=== PATIENT | female | born 1950 | race Caucasian/White ===

== ENCOUNTER 2020-04-27 07:18 | Outpatient (REF) | payer MEDICARE, OTHER, SELFPAY ==
[2020-04-27 12:01] LABS: Alanine Aminotransferase 32 U/L (0-31); Albumin Level 4.4 g/dL (3.5-5.0); Alkaline Phosphatase 131 U/L (39-117); Anion Gap 11 (12-20); Aspartate Amino Transferase 26 U/L (5-31); Bilirubin Total 0.4 mg/dL (0.0-1.0); Blood Urea Nitrogen 15 mg/dL (9-16); Calcium 9.4 mg/dL (8.4-10.2); Carbon Dioxide 28 mmol/L (22-29); Chloride 101 mmol/L (96-108); Cholesterol 175 mg/dL; Estimated Glomerular Filt Rate > 60; Glucose Fasting 89 mg/dL (60-99); HDL Cholesterol 57 mg/dL; LDL Cholesterol Calculated 96 mg/dl; Potassium 4.6 mmol/l (3.3-5.1); Sodium 135 mmol/L (135-145); Total Protein 7.5 g/dL (6.5-8.0); Triglycerides 110 mg/dL
== END 2020-04-27 07:19 | disposition home or self-care (01) ==
LOC: HO.HMGCLDS 07:18
PROVIDERS: PCP Internal Medicine; Visit Provider Internal Medicine
DX: E78.5 Hyperlipidemia, unspecified (principal); I10 Essential (primary) hypertension; F41.9 Anxiety disorder, unspecified
CPT/HCPCS: 36415; 80053; 80061

== ENCOUNTER 2020-09-06 07:13 | Outpatient (REF) | payer MEDICARE, OTHER, SELFPAY ==
[2020-09-06 11:37] LABS: Hematocrit 43.4 % (37-47); Hemoglobin 13.6 g/dl (12.0-16.0); Mean Corpuscular HGB Conc 31.3 g/dl (31.0-35.0); Mean Corpuscular Hemoglobin 29.4 pg (27.0-33.0); Mean Corpuscular Volume 93.7 fL (80-98); Mean Platelet Volume 12.3 fL (9.4-12.3); Platelet Count 226 X10*3/uL (160-400); Red Blood Count 4.63 X10*6/uL (4.20-5.50); Red Cell Distribution Width 12.5 % (11.0-16.0); White Blood Count 6.6 X10*3/uL (4.8-10.8)
[2020-09-06 12:02] LABS: Alanine Aminotransferase 49 U/L (0-31); Albumin Level 4.5 g/dL (3.5-5.0); Alkaline Phosphatase 148 U/L (39-117); Anion Gap 15 (12-20); Aspartate Amino Transferase 37 U/L (5-31); Bilirubin Total 0.5 mg/dL (0.0-1.0); Blood Urea Nitrogen 14 mg/dL (9-16); Calcium 9.4 mg/dL (8.4-10.2); Carbon Dioxide 26 mmol/L (22-29); Chloride 99 mmol/L (96-108); Cholesterol 203 mg/dL; Estimated Glomerular Filt Rate > 60; Glucose Fasting 91 mg/dL (60-99); HDL Cholesterol 64 mg/dL; LDL Cholesterol Calculated 123 mg/dl; Potassium 4.7 mmol/L (3.3-5.1); Sodium 135 mmol/L (135-145); Total Protein 7.9 g/dL (6.5-8.0); Triglycerides 82 mg/dL
[2020-09-06 12:24] LABS: TSH reflex Free T4 4.96 uIU/mL (0.32-4.0)
[2020-09-06 13:05] LABS: Free T4 (Free Thyroxine) 0.97 ng/dL (0.71-1.85)
== END 2020-09-06 07:14 | disposition home or self-care (01) ==
LOC: HO.HMGCLDS 07:13
PROVIDERS: PCP Internal Medicine; Visit Provider Internal Medicine
DX: L71.9 Rosacea, unspecified (principal); L30.9 Dermatitis, unspecified; N64.4 Mastodynia; E78.5 Hyperlipidemia, unspecified; R79.89 Other specified abnormal findings of blood chemistry; D23.9 Other benign neoplasm of skin, unspecified
CPT/HCPCS: 36415; 80053; 80061; 84439; 84443; 85027

== ENCOUNTER 2020-09-14 09:58 | Outpatient (REF) | payer MEDICARE, OTHER, SELFPAY ==
--- NOTE | ~2020-09-14 | US_ITS ---
EXAMINATION: US ABDOMEN LIMITED CLINICAL INFORMATION: Other specified abnormal findings of blood chemistry. COMPARISON: None TECHNIQUE: Real-time imaging of the right upper quadrant abdominal viscera. FINDINGS: PANCREAS: Normal. LIVER: The liver is normal in size. The liver contour is normal. Parenchymal echogenicity is normal. There is a 1.4 x 1.2 x 1.3 cm cyst in the right lobe. No other focal liver lesion is seen. There is no intrahepatic biliary duct dilatation seen. GALLBLADDER: Normal. The gallbladder is physiologically distended without evidence of stones, sludge, polyps, wall thickening or pericholecystic fluid. COMMON BILE DUCT: Normal in caliber measuring 0.4 cm in diameter. RIGHT KIDNEY: Normal. No hydronephrosis. No renal calculi or focal parenchymal lesions. The kidney measures 10.8 cm in maximum dimension. FREE FLUID: None. US/US abdomen limited IMPRESSION: Small liver cyst otherwise unremarkable exam.
== END 2020-09-14 09:59 | disposition home or self-care (01) ==
LOC: HO.HMGCX 09:58
PROVIDERS: PCP Internal Medicine; Visit Provider Internal Medicine
DX: R79.89 Other specified abnormal findings of blood chemistry (principal)
CPT/HCPCS: 76705

== ENCOUNTER 2021-04-19 10:09 | Outpatient (REF) | payer MEDICARE, OTHER, SELFPAY ==
[2021-04-19 12:03] LABS: Alanine Aminotransferase 33 U/L (0-31); Albumin Level 4.3 g/dL (3.5-5.0); Alkaline Phosphatase 122 U/L (39-117); Anion Gap 13 (12-20); Aspartate Amino Transferase 30 U/L (5-31); Bilirubin Total 0.6 mg/dL (0.0-1.0); Blood Urea Nitrogen 15 mg/dL (9-16); Calcium 9.8 mg/dL (8.4-10.2); Carbon Dioxide 26 mmol/L (22-29); Chloride 99 mmol/L (96-108); Cholesterol 190 mg/dL; Estimated Glomerular Filt Rate > 60; Glucose Fasting 95 mg/dL (60-99); HDL Cholesterol 58 mg/dL; LDL Cholesterol Calculated 112 mg/dl; Sodium 133 mmol/L (135-145); Total Protein 7.8 g/dL (6.5-8.0); Triglycerides 100 mg/dL
[2021-04-19 12:13] LABS: TSH reflex Free T4 2.01 uIU/mL (0.32-4.0)
== END 2021-04-19 10:10 | disposition home or self-care (01) ==
LOC: HO.HMGCLDS 10:09
PROVIDERS: PCP Internal Medicine; Visit Provider Internal Medicine
DX: E03.9 Hypothyroidism, unspecified (principal); E78.5 Hyperlipidemia, unspecified; I10 Essential (primary) hypertension; R79.89 Other specified abnormal findings of blood chemistry
CPT/HCPCS: 36415; 80053; 80061; 84443

== ENCOUNTER 2021-09-13 10:21 | Outpatient (REF) | payer MEDICARE, OTHER, SELFPAY ==
[2021-09-13 11:51] LABS: Hematocrit 41.6 % (37.0-47.0); Hemoglobin 13.4 g/dl (12.0-16.0); Mean Corpuscular HGB Conc 32.2 g/dl (31.0-35.0); Mean Corpuscular Hemoglobin 29.7 pg (27.0-33.0); Mean Corpuscular Volume 92.2 fL (80.0-98.0); Mean Platelet Volume 11.4 fL (9.4-12.3); Platelet Count 229 X10*3/uL (160-400); Red Blood Count 4.51 X10*6/uL (4.20-5.50); Red Cell Distribution Width 12.6 % (11.0-16.0); White Blood Count 6.7 X10*3/uL (4.8-10.8)
[2021-09-13 12:11] LABS: Alanine Aminotransferase 34 U/L (0-31); Albumin Level 4.5 g/dL (3.5-5.0); Alkaline Phosphatase 129 U/L (39-117); Anion Gap 11 (12-20); Aspartate Amino Transferase 31 U/L (5-31); Bilirubin Total 0.5 mg/dL (0.0-1.0); Blood Urea Nitrogen 16 mg/dL (9-16); Calcium 9.9 mg/dL (8.4-10.2); Carbon Dioxide 28 mmol/L (22-29); Chloride 101 mmol/L (96-108); Cholesterol 216 mg/dL; Estimated Glomerular Filt Rate > 60; Glucose Fasting 104 mg/dL (60-99); HDL Cholesterol 57 mg/dL; LDL Cholesterol Calculated 141 mg/dl; Potassium 4.9 mmol/L (3.3-5.1); Sodium 135 mmol/L (135-145); Total Protein 7.9 g/dL (6.5-8.0); Triglycerides 93 mg/dL
[2021-09-13 12:34] LABS: TSH reflex Free T4 2.92 uIU/mL (0.32-4.0)
== END 2021-09-13 10:22 | disposition home or self-care (01) ==
LOC: HO.HMGCLDS 10:21
PROVIDERS: Visit Provider Internal Medicine
DX: E03.9 Hypothyroidism, unspecified (principal); E78.5 Hyperlipidemia, unspecified; I10 Essential (primary) hypertension
CPT/HCPCS: 36415; 80053; 80061; 84443; 85027

== ENCOUNTER 2021-10-15 08:43 | Outpatient (REF) | payer MEDICARE, OTHER, SELFPAY ==
[2021-10-15 11:55] LABS: Anion Gap 14 (12-20); Blood Urea Nitrogen 17 mg/dL (9-16); Calcium 10.1 mg/dL (8.4-10.2); Carbon Dioxide 25 mmol/L (22-29); Chloride 102 mmol/L (96-108); Estimated Glomerular Filt Rate > 60; Glucose Random 97 mg/dL (60-115); Potassium 4.7 mmol/L (3.3-5.1); Sodium 136 mmol/L (135-145)
== END 2021-10-15 08:44 | disposition home or self-care (01) ==
LOC: HO.HMGCLDS 08:43
PROVIDERS: PCP Internal Medicine; Visit Provider Internal Medicine
DX: E87.1 Hypo-osmolality and hyponatremia (principal)
CPT/HCPCS: 36415; 80048

== ENCOUNTER 2022-01-15 07:28 | Outpatient (REF) | payer MEDICARE, OTHER, SELFPAY ==
[2022-01-15 11:23] LABS: MANUAL DIFF FLAG NO
[2022-01-15 11:33] LABS: Basophils Absolute Auto 0.1 X10*3/uL (0.0-0.2); Basophils Percent Auto 0.9 % (0-2); Eosinophils Absolute Auto 0.2 X10*3/uL (0.0-0.4); Eosinophils Percent Auto 3.7 % (0-4); Hematocrit 39.6 % (37.0-47.0); Hemoglobin 12.6 g/dl (12.0-16.0); Imm Gran Abs Auto 0.04 X10*3/uL (0.00-0.03); Imm Gran Pct Auto 0.6 % (0.0-0.4); Lymphocytes Absolute Auto 1.5 X10*3/uL (1.2-4.9); Lymphocytes Percent Auto 23.2 % (20-40); Mean Corpuscular HGB Conc 31.8 g/dl (31.0-35.0); Mean Corpuscular Hemoglobin 29.9 pg (27.0-33.0); Mean Corpuscular Volume 93.8 fL (80.0-98.0); Mean Platelet Volume 11.9 fL (9.4-12.3); Monocytes Absolute Auto 0.7 X10*3/uL (0.1-1.2); Monocytes Percent Auto 10.9 % (2-11); Neutrophils Absolute Auto 3.9 x10*3/uL (2.0-8.3); Neutrophils Percent Auto 60.7 % (45-73); Platelet Count 246 X10*3/uL (160-400); Red Blood Count 4.22 X10*6/uL (4.20-5.50); White Blood Count 6.4 X10*3/uL (4.8-10.8)
[2022-01-15 11:47] LABS: Alanine Aminotransferase 91 U/L (0-31); Albumin Level 4.4 g/dL (3.5-5.0); Alkaline Phosphatase 209 U/L (39-117); Anion Gap 12 (12-20); Aspartate Amino Transferase 59 U/L (5-31); Bilirubin Total 0.6 mg/dL (0.0-1.0); Blood Urea Nitrogen 19 mg/dL (9-16); Calcium 9.8 mg/dL (8.4-10.2); Carbon Dioxide 28 mmol/L (22-29); Chloride 102 mmol/L (96-108); Cholesterol 213 mg/dL; Estimated Glomerular Filt Rate > 60; Glucose Fasting 103 mg/dL (60-99); HDL Cholesterol 61 mg/dL; LDL Cholesterol Calculated 140 mg/dl; Potassium 5.3 mmol/L (3.3-5.1); Sodium 137 mmol/L (135-145); Total Protein 7.8 g/dL (6.5-8.0); Triglycerides 64 mg/dL
[2022-01-15 12:10] LABS: TSH reflex Free T4 3.27 uIU/mL (0.32-4.0)
== END 2022-01-15 07:29 | disposition home or self-care (01) ==
LOC: HO.HMGCLDS 07:28
PROVIDERS: Visit Provider Internal Medicine
DX: E78.5 Hyperlipidemia, unspecified (principal); I10 Essential (primary) hypertension; E03.9 Hypothyroidism, unspecified
CPT/HCPCS: 36415; 80053; 80061; 84443; 85025

== ENCOUNTER 2022-01-30 07:25 | Outpatient (REF) | payer MEDICARE, OTHER, SELFPAY ==
[2022-01-30 11:59] LABS: Alanine Aminotransferase 50 U/L (0-31); Albumin Level 4.4 g/dL (3.5-5.0); Alkaline Phosphatase 183 U/L (39-117); Anion Gap 12 (12-20); Aspartate Amino Transferase 41 U/L (5-31); Bilirubin Total 0.6 mg/dL (0.0-1.0); Blood Urea Nitrogen 14 mg/dL (9-16); Calcium 9.6 mg/dL (8.4-10.2); Carbon Dioxide 27 mmol/L (22-29); Chloride 104 mmol/L (96-108); Estimated Glomerular Filt Rate > 60; Glucose Random 89 mg/dL (60-115); Potassium 4.6 mmol/L (3.3-5.1); Sodium 138 mmol/L (135-145); Total Protein 7.7 g/dL (6.5-8.0)
== END 2022-01-30 07:26 | disposition home or self-care (01) ==
LOC: HO.HMGCLDS 07:25
PROVIDERS: Visit Provider Internal Medicine
DX: E87.6 Hypokalemia (principal)
CPT/HCPCS: 36415; 80053

== ENCOUNTER 2022-02-27 09:50 | Outpatient (REF) | payer MEDICARE, OTHER, SELFPAY | END 2022-02-27 09:51 | disposition home or self-care (01) | LOC: HO.HMGCX 09:50 | PROVIDERS: PCP Internal Medicine; Visit Provider Internal Medicine | DX: Z13.89 Encounter for screening for other disorder (principal) ==

== ENCOUNTER 2022-02-27 09:51 | Outpatient (REF) | payer MEDICARE, OTHER, SELFPAY ==
--- NOTE | ~2022-02-27 | US_ITS ---
EXAMINATION: US ABDOMEN COMPLETE CLINICAL INFORMATION: Other specific abnormal findings of blood chemistry. COMPARISON: Limited abdominal ultrasound 09/14/2020. TECHNIQUE: Real-time imaging of the abdominal viscera. FINDINGS: PANCREAS: Normal. ABDOMINAL AORTA: The proximal, mid, and distal segments are normal in caliber. INFERIOR VENA CAVA: Visualized portions are normal. LIVER: The liver is normal in size. The liver contour is normal. Parenchymal echogenicity is normal. Cystic focus in the right hepatic lobe measuring 1.3 x 1.3 x 1.4 cm, stable. There is no intrahepatic biliary duct dilatation seen. GALLBLADDER: Normal. The gallbladder is physiologically distended without evidence of stones, sludge, polyps, wall thickening or pericholecystic fluid. COMMON BILE DUCT: Normal in caliber measuring 0.5 cm in diameter. RIGHT KIDNEY: Normal. No hydronephrosis. No renal calculi or focal parenchymal lesions. The kidney measures 11.3 cm in maximum dimension. LEFT KIDNEY: Normal. No hydronephrosis. No renal calculi or focal parenchymal lesions. The kidney measures 10.5 cm in maximum dimension. SPLEEN: Normal. The spleen measures 10.1 cm in maximum dimension. FREE FLUID: None. US/US abdomen complete IMPRESSION: Cystic focus in the right hepatic lobe measuring 1.3 x 1.3 x 1.4 cm, stable.
--- NOTE | ~2022-02-27 | US_ITS ---
EXAMINATION: US EXTRACRANIAL CAROTID DUPLEX, BILATERAL CLINICAL INFORMATION: This is a 71-year-old female with bilateral carotid artery stenosis. Occlusion and stenosis of bilateral carotid arteries. COMPARISON: None TECHNIQUE: Real-time ultrasound and Doppler techniques (integrating B-mode 2-D vascular images, Doppler spectral analysis and color-flow Doppler imaging) were utilized to interrogate the extracranial carotid arteries, the vertebral arteries and proximal subclavian arteries bilaterally. The degree of stenosis is determined by criteria similar to NASCET. FINDINGS: Right Side: 1. There is minimal atherosclerotic plaque seen in the bifurcation/proximal ICA region. 2. The common carotid artery PSV proximally is 101 cm/s and distally 69 cm/s. 3. The proximal internal carotid artery velocities are 130 cm/s systolic and 28 cm/s diastolic. 4. The proximal external carotid artery PSV is 175 cm/s. 5. The vertebral artery shows antegrade flow. 6. The subclavian artery waveforms are normal. Left Side: 1. There is minimal atherosclerotic plaque seen in the bifurcation/proximal ICA region. 2. The common carotid artery PSV proximally is 94 cm/s and distally 73 cm/s. 3. The proximal internal carotid artery velocities are 90 cm/s systolic and 31 cm/s diastolic. 4. The proximal external carotid artery PSV is 172 cm/s. 5. The vertebral artery is not seen. 6. The subclavian artery waveforms are normal. US/US carotid duplex BI IMPRESSION: 1. RIGHT: Minimal, non-hemodynamically significant stenosis of the proximal right internal carotid artery corresponding to a 0-49% stenosis by velocity criteria. 2. LEFT: Minimal, non-hemodynamically significant stenosis of the proximal left internal carotid artery corresponding to a 0-49% stenosis by velocity criteria.
== END 2022-02-27 09:52 | disposition home or self-care (01) ==
LOC: HO.HMGCX 09:51
PROVIDERS: PCP Internal Medicine; Visit Provider Internal Medicine
DX: I65.23 Occlusion and stenosis of bilateral carotid arteries (principal); I10 Essential (primary) hypertension; R79.89 Other specified abnormal findings of blood chemistry
CPT/HCPCS: 76700; 93880

== ENCOUNTER 2022-04-09 06:57 | Outpatient (REF) | payer MEDICARE, OTHER, SELFPAY ==
[2022-04-09 11:18] LABS: MANUAL DIFF FLAG NO
[2022-04-09 11:32] LABS: Basophils Absolute Auto 0.1 X10*3/uL (0.0-0.2); Eosinophils Absolute Auto 0.2 X10*3/uL (0.0-0.4); Eosinophils Percent Auto 3.8 % (0-4); Hemoglobin 12.9 g/dl (12.0-16.0); Imm Gran Abs Auto 0.01 X10*3/uL (0.00-0.03); Imm Gran Pct Auto 0.2 % (0.0-0.4); Lymphocytes Absolute Auto 1.6 X10*3/uL (1.2-4.9); Lymphocytes Percent Auto 25.6 % (20-40); Mean Corpuscular HGB Conc 32.3 g/dl (31.0-35.0); Mean Corpuscular Hemoglobin 30.1 pg (27.0-33.0); Mean Corpuscular Volume 93.5 fL (80.0-98.0); Mean Platelet Volume 12.1 fL (9.4-12.3); Monocytes Absolute Auto 0.6 X10*3/uL (0.1-1.2); Monocytes Percent Auto 9.7 % (2-11); Neutrophils Absolute Auto 3.7 x10*3/uL (2.0-8.3); Neutrophils Percent Auto 59.7 % (45-73); Platelet Count 212 X10*3/uL (160-400); Red Blood Count 4.28 X10*6/uL (4.20-5.50); Red Cell Distribution Width 12.9 % (11.0-16.0); White Blood Count 6.3 X10*3/uL (4.8-10.8)
[2022-04-09 12:05] LABS: Alanine Aminotransferase 52 U/L (0-31); Albumin Level 4.2 g/dL (3.5-5.0); Alkaline Phosphatase 155 U/L (39-117); Anion Gap 14 (12-20); Aspartate Amino Transferase 43 U/L (5-31); Bilirubin Total 0.6 mg/dL (0.0-1.0); Blood Urea Nitrogen 18 mg/dL (9-16); Calcium 9.6 mg/dL (8.4-10.2); Carbon Dioxide 26 mmol/L (22-29); Chloride 100 mmol/L (96-108); Cholesterol 221 mg/dL; Estimated Glomerular Filt Rate > 60; Glucose Fasting 88 mg/dL (60-99); HDL Cholesterol 58 mg/dL; LDL Cholesterol Calculated 147 mg/dl; Potassium 4.8 mmol/L (3.3-5.1); Sodium 135 mmol/L (135-145); Total Protein 7.4 g/dL (6.5-8.0); Triglycerides 83 mg/dL
== END 2022-04-09 06:58 | disposition home or self-care (01) ==
LOC: HO.HMGCLDS 06:57
PROVIDERS: PCP Internal Medicine; Visit Provider Internal Medicine
DX: E78.5 Hyperlipidemia, unspecified (principal); I10 Essential (primary) hypertension
CPT/HCPCS: 36415; 80053; 80061; 85025

== ENCOUNTER 2022-09-16 08:53 | Outpatient (REF) | payer MEDICARE, OTHER, SELFPAY ==
[2022-09-16 11:18] LABS: MANUAL DIFF FLAG NO
[2022-09-16 11:24] LABS: Basophils Absolute Auto 0.1 X10*3/uL (0.0-0.2); Basophils Percent Auto 0.8 % (0-2); Eosinophils Absolute Auto 0.2 X10*3/uL (0.0-0.4); Eosinophils Percent Auto 3.7 % (0-4); Hematocrit 41.9 % (37.0-47.0); Hemoglobin 13.3 g/dl (12.0-16.0); Imm Gran Abs Auto 0.01 X10*3/uL (0.00-0.03); Imm Gran Pct Auto 0.2 % (0.0-0.4); Lymphocytes Absolute Auto 1.5 X10*3/uL (1.2-4.9); Lymphocytes Percent Auto 23.7 % (20-40); Mean Corpuscular HGB Conc 31.7 g/dl (31.0-35.0); Mean Corpuscular Hemoglobin 29.6 pg (27.0-33.0); Mean Corpuscular Volume 93.1 fL (80.0-98.0); Mean Platelet Volume 11.8 fL (9.4-12.3); Monocytes Absolute Auto 0.6 X10*3/uL (0.1-1.2); Monocytes Percent Auto 9.6 % (2-11); Platelet Count 227 X10*3/uL (160-400); Red Cell Distribution Width 12.6 % (11.0-16.0); White Blood Count 6.5 X10*3/uL (4.8-10.8)
[2022-09-16 11:41] LABS: Alanine Aminotransferase 68 U/L (0-31); Albumin Level 4.2 g/dL (3.5-5.0); Alkaline Phosphatase 156 U/L (39-117); Anion Gap 13 (12-20); Aspartate Amino Transferase 39 U/L (5-31); Bilirubin Total 0.6 mg/dL (0.0-1.0); Blood Urea Nitrogen 17 mg/dL (9-16); Calcium 9.8 mg/dL (8.4-10.2); Carbon Dioxide 26 mmol/L (22-29); Chloride 101 mmol/L (96-108); Cholesterol 240 mg/dL; Estimated Glomerular Filt Rate > 60; Glucose Fasting 92 mg/dL (60-99); HDL Cholesterol 61 mg/dL; LDL Cholesterol Calculated 158 mg/dl; Potassium 4.9 mmol/L (3.3-5.1); Sodium 135 mmol/L (135-145); Total Protein 7.4 g/dL (6.5-8.0); Triglycerides 108 mg/dL
[2022-09-16 12:04] LABS: TSH reflex Free T4 6.69 uIU/mL (0.32-4.0)
[2022-09-16 13:18] LABS: Free T4 (Free Thyroxine) 0.85 ng/dL (0.71-1.85)
== END 2022-09-16 08:54 | disposition home or self-care (01) ==
LOC: HO.HMGCLDS 08:53
PROVIDERS: PCP Internal Medicine; Visit Provider Internal Medicine
DX: E03.9 Hypothyroidism, unspecified (principal); E87.1 Hypo-osmolality and hyponatremia; I10 Essential (primary) hypertension; E78.5 Hyperlipidemia, unspecified
CPT/HCPCS: 36415; 80053; 80061; 84439; 84443; 85025

== ENCOUNTER 2022-09-24 08:42 | Outpatient (REF) | payer MEDICARE, OTHER, SELFPAY ==
--- NOTE | ~2022-09-24 | XR_ITS ---
EXAMINATION: XR SHOULDER, RIGHT CLINICAL INFORMATION: Shoulder pain COMPARISON: None TECHNIQUE: Right shoulder is imaged in 4 views. FINDINGS: There is calcific tendinosis mid to distal superior rotator cuff. Calcification on frontal view measures approximately 4 mm in thickness by 8 mm in length. There is no fracture or dislocation or destructive process. The glenohumeral joint appears normal. There is borderline elevation distal right clavicle which could be related to a prior mild AC sprain. No before meals joint widening. XR/XR shoulder RT min 2V IMPRESSION: 1. Calcific tendinosis mid to distal superior rotator cuff. 2. Borderline elevation distal right clavicle which could be related to prior mild A.C. sprain.
--- NOTE | ~2022-09-24 | XR_ITS ---
EXAMINATION: XR WRIST, RIGHT CLINICAL INFORMATION: Right wrist pain COMPARISON: None TECHNIQUE: PA, lateral, and oblique views of the right wrist. FINDINGS: No fracture, dislocation, or destructive process. The ulnar variance is neutral. No joint narrowing or erosive change or chondrocalcinosis. There is mild generalized osteopenia. No periarticular demineralization. XR/XR wrist RT min 3V IMPRESSION: 1. No fracture, dislocation, or arthropathy. 2. Mild generalized osteopenia.
[2022-09-24 12:31] LABS: Uric Acid 5.7 mg/dL (2.4-5.7)
== END 2022-09-24 08:43 | disposition home or self-care (01) ==
LOC: HO.HMGCLDS 08:42
PROVIDERS: PCP Internal Medicine; Visit Provider Internal Medicine
DX: E03.9 Hypothyroidism, unspecified (principal); E87.1 Hypo-osmolality and hyponatremia; I10 Essential (primary) hypertension; M25.511 Pain in right shoulder; E78.5 Hyperlipidemia, unspecified; M25.531 Pain in right wrist
CPT/HCPCS: 36415; 73030; 73110; 84550

== ENCOUNTER 2023-03-11 07:51 | Outpatient (REF) | payer MEDICARE, OTHER, SELFPAY ==
[2023-03-11 11:19] LABS: MANUAL DIFF FLAG NO
[2023-03-11 11:33] LABS: Basophils Absolute Auto 0.1 X10*3/uL (0.0-0.2); Basophils Percent Auto 1.2 % (0-2); Eosinophils Absolute Auto 0.2 X10*3/uL (0.0-0.4); Eosinophils Percent Auto 3.6 % (0-4); Hematocrit 41.5 % (37.0-47.0); Hemoglobin 13.3 g/dl (12.0-16.0); Imm Gran Abs Auto 0.01 X10*3/uL (0.00-0.03); Imm Gran Pct Auto 0.2 % (0.0-0.4); Lymphocytes Absolute Auto 1.6 X10*3/uL (1.2-4.9); Lymphocytes Percent Auto 28.1 % (20-40); Mean Corpuscular Hemoglobin 29.7 pg (27.0-33.0); Mean Corpuscular Volume 92.6 fL (80.0-98.0); Monocytes Absolute Auto 0.6 X10*3/uL (0.1-1.2); Monocytes Percent Auto 10.8 % (2-11); Neutrophils Absolute Auto 3.3 x10*3/uL (2.0-8.3); Neutrophils Percent Auto 56.1 % (45-73); Platelet Count 261 X10*3/uL (160-400); Red Blood Count 4.48 X10*6/uL (4.20-5.50); Red Cell Distribution Width 12.7 % (11.0-16.0); White Blood Count 5.8 X10*3/uL (4.8-10.8)
[2023-03-11 12:10] LABS: Alanine Aminotransferase 28 U/L (0-31); Albumin Level 4.3 g/dL (3.5-5.0); Alkaline Phosphatase 131 U/L (39-117); Anion Gap 11 (12-20); Aspartate Amino Transferase 32 U/L (5-31); Bilirubin Total 0.6 mg/dL (0.0-1.0); Blood Urea Nitrogen 16 mg/dL (9-16); Calcium 9.8 mg/dL (8.4-10.2); Carbon Dioxide 27 mmol/L (22-29); Chloride 98 mmol/L (96-108); Cholesterol 226 mg/dL; Estimated Glomerular Filt Rate > 60; Glucose Fasting 98 mg/dL (60-99); HDL Cholesterol 63 mg/dL; LDL Cholesterol Calculated 147 mg/dl; Potassium 4.9 mmol/L (3.3-5.1); Sodium 131 mmol/L (135-145); Total Protein 8.1 g/dL (6.5-8.0); Triglycerides 84 mg/dL
[2023-03-11 12:30] LABS: TSH reflex Free T4 5.23 uIU/mL (0.32-4.0); Vitamin D 25-OH Total 38.7 ng/mL (>30)
[2023-03-12 06:54] LABS: Triiodothyronine T3 Free 2.9 pg/mL (2.3-4.2)
[2023-03-12 11:23] LABS: Alpha Fetoprotein 4.9 ng/mL
== END 2023-03-11 07:52 | disposition home or self-care (01) ==
LOC: HO.HMGCLDS 07:51
PROVIDERS: PCP Internal Medicine; Visit Provider Internal Medicine
DX: Z00.00 Encounter for general adult medical examination without abnormal findings (principal); E03.9 Hypothyroidism, unspecified; R79.89 Other specified abnormal findings of blood chemistry; E78.5 Hyperlipidemia, unspecified; I10 Essential (primary) hypertension; E55.9 Vitamin D deficiency, unspecified
CPT/HCPCS: 36415; 80053; 80061; 82105; 82306; 84439; 84443; 84481; 85025

== ENCOUNTER 2023-03-13 09:51 | Outpatient (AMB) | payer MEDICARE, SELFPAY ==
[2023-03-13 10:04] VITALS: BP 128/70; PULSE 84; BMI 24.1
--- NOTE | 2023-03-13 10:04 | A.OFFPC_ITS ---
Vital Signs 03/13/23 10:04 Height 5 ft 2 in Weight 132 lb BMI 24.1 BP 128/70 Blood Pressure Location Lt brachial Position Sitting Pulse 84 Pulse Source Palpation Intake Visit Reasons: Follow up Intake Note: Pt is here today for a follow up visit on labs. Allergies rosuvastatin [From Crestor] Adverse Reaction (Intermediate, Verified 03/13/23 10:08) Abdominal Pain amlodipine Adverse Reaction (Verified 03/13/23 10:08) face turned red, dizziness headaches Medication List - Last Reconciled 03/13/23 by Jade Reece MD buspirone 7.5 mg PO BID clobetasol 0.05% 1 appl topical DAILY lisinopril 20 mg PO DAILY lorazepam 0.5 mg PO DAILY PRN metronidazole 0.75% (MetroCream) 1 appl topical BEDTIME omega-3 fatty acids 500 mg PO DAILY omeprazole 40 mg PO DAILY Tobacco use date assessed: 03/13/23 Fall risk assessment: No Falls in past year Last assessed Fall Risk: 03/13/23 Dental Screening Dental Screen Date: 03/13/23 Did you have a dental visit in the last 12 months?: Yes Did you have a dental problem in the last 6 months where you did not have access to dental care?: No Was dental information given to patient?: Patient has dentist HPI Follow up HPI Details Pt presents for HTN, hyperlipid. [facility] Medical History Annual physical exam Anxiety Breast pain, left CREST syndrome Dysplastic nevi Eczema Elevated LFTs Hyperlipidemia Hypertension Hyponatremia Hypothyroidism Lumbar radiculopathy Osteoporosis Rosacea Surgical History H/O colonoscopy History of nasal septoplasty Family History (Updated 03/13/23 @ 10:12 by ABISAI Coffey) Father No problems noted. Mother No problems noted. Daughter No problems noted. Daughter No problems noted. Daughter No problems noted. Social History Housing: House Patient Tobacco Use Status: Never used Tobacco e-Cigarette/Vaping Use: Never Used Current occupational status: retired Cognitive needs: No Hearing needs: No Vision needs: Yes Questionnaire PHQ-9 Over the last 2 weeks, how often have you been bothered by any of the following problems? 1. Little interest or pleasure in doing things: not at all 2. Feeling down, depressed, or hopeless: not at all 3. Trouble falling or staying asleep, or sleeping too much: not at all 4. Feeling tired or having little energy: not at all 5. Poor appetite or overeating: not at all 6. Feeling bad about yourself - or that you are a failure or have let yourself or your family down: not at all 7. Trouble concentrating on things, such as reading the newspaper or watching television: not at all 8. Moving or speaking so slowly that other people could have noticed. Or the opposite - being so fidgety or restless that you have been moving around a lot more than usual: not at all 9. Thoughts that you would be better off or of hurting yourself in some way: not at all Total score: 0 Depression Screening Interpretation: Negative Source: Developed by Drs. Waldemar Buchanan, Robyn Burr, Jalil Sam and colleagues, with an educational mp from [employer]. Thrive Questionnaire Date Thrive assessed: 03/13/23 I am a: Patient What is your living situation today?: I have a steady place to live Within the past 12 months, did the food you bought not last and you didn't have the money to get more?: Never true Within the past 12 months, did you worry whether your food would run out before you got money to buy more?: Never true Do you have trouble paying for medicines?: No Do you have trouble getting transportation to medical appointments?: No Do you have trouble paying your heating and electricity bill?: No Do you have trouble taking care of your child, family member or friend?: No Do you have trouble with day-to-day activities such as bathing, preparing meals, shopping, managing finances, etc.?: No Are you currently unemployed and looking for a job?: No Are you interested in more education?: No Please select the resources that you would like help with: None Currently or been in a relationship where the following occur: no concerns reported DONI-7 AMB Questionnaire DONI-7 Date DONI - 7 assessed: 03/13/23 Feeling nervous, anxious, or on edge: 0 = Not at all Not being able to stop or control worryin = Not at all Worrying too much about different things: 0 = Not at all Trouble relaxin = Not at all Being so restless that it is hard to sit still: 0 = Not at all Becoming easily annoyed or irritable: 0 = Not at all Feeling afraid as if something awful might happen: 0 = Not at all Total DONI-7 score (0-4 normal; 5-9 mild; 10-14 moderate; 15-21 severe): 0 Source: Developed by Drs. Waldemar Buchanan, Robyn Burr, Jalil Sam and colleagues, with an educational mp from [employer]. Review of Systems Const All systems reviewed & are unremarkable except as noted in HPI and below Reports no additional complaints Eyes Reports no additional complaints ENT Reports no additional complaints Card Reports no additional complaints Resp Reports no additional complaints GI Reports no additional complaints Reports no additional complaints Physical exam (Primary Care) Vital Signs: Last Vital Signs Pulse 84 03/13/23 10:04 BP 128/70 03/13/23 10:04 BMI result Body Mass Index 24.1 Tobacco/Smoking Status: Tobacco use Status Tobacco use date assessed 03/13/23 03/13/23 10:11 Patient Tobacco Use Status Never used Tobacco 03/13/23 10:11 e-Cigarette/Vaping Use Never Used 03/13/23 10:11 PHQ-9: PHQ-9 Score PHQ-9: Total score 0 03/13/23 10:11 Depression Screening Interpretation: Negative Thrive Assessment: Date of Thrive Assessment Date Thrive assessed 03/13/23 03/13/23 10:11 Currently or been in a relationship where the following occur: no concerns reported Const General: no acute distress HENMT Head: Yes normal to inspection Ears: hearing grossly normal bilaterally Face and sinus: Yes normal facial exam Mouth: Normal oral and palatal mucosa present Throat: Yes posterior oropharynx normal Eyes General: appearance normal, both eyes and all related structures Neck Neck: Yes no lymphadenopathy and Yes supple Resp Effort & Inspection: normal respiratory effort Auscultation: clear to auscultation bilaterally Cardio Rhythm: regular rhythm Heart sounds: S1 normal heart sound present and S2 normal heart sound present GI Inspection: Yes normal to inspection Palpation (GI): Soft to palpation Percussion: Yes normal to percussion Auscultation: normal bowel sounds Assessment and Plan Assessment & Plan (1) Hyponatremia: Comment: [facility] 10/15 Code(s): E87.1 - Hypo-osmolality and hyponatremia Plan: Fluid restriction discussed with the patient repeat sodium level in 1 week (2) Hypothyroidism: Comment: borderline, no meds Code(s): E03.9 - Hypothyroidism, unspecified Plan: Monitor TSH (3) Hypertension: Comment: Intolerant to amlodipine Code(s): I10 - Essential (primary) hypertension Plan: Continue lisinopril (4) Hyperlipidemia: Comment: intolerant to Crestor, pravastatin, simvastatin Code(s): E78.5 - Hyperlipidemia, unspecified Plan: Continue low-cholesterol diet (5) Elevated LFTs: Comment: Workup negative 2017 hepatitis-B C, ceruloplasmin MARIEL negative, follow-up with GI Dr Nuñez, CT scan abd negative 2014, US stable hepatic cyst 03/17 Code(s): R79.89 - Other specified abnormal findings of blood chemistry Orders: Orders Basic Metabolic Panel 1 Week E87.1 - Hypo-osmolality and hyponatremia Comprehensive [place]. Panel Fast 6 Months E03.9 - Hypothyroidism, unspecified, E78.5 - Hyperlipidemia, unspecified, I10 - Essential (primary) hypertension, R79.89 - Other specified abnormal findings of blood chemistry Lipid Panel 6 Months E03.9 - Hypothyroidism, unspecified, E78.5 - Hyperlipidemia, unspecified, I10 - Essential (primary) hypertension, R79.89 - Other specified abnormal findings of blood chemistry TSH reflex Free T4 6 Months E03.9 - Hypothyroidism, unspecified, E78.5 - Hyperlipidemia, unspecified, I10 - Essential (primary) hypertension, R79.89 - Other specified abnormal findings of blood chemistry Medications: Refilled lisinopril 20 mg PO DAILY 90 tabs 3RF omeprazole 40 mg PO DAILY 90 caps 3RF Discontinued buspirone Discontinued Reason: Doctor's Order 7.5 mg PO BID 60 tabs 3RF Coding Level of Care Code Est Pt Level 4 (24861) Diagnoses Hyponatremia E87.1 Hypothyroidism E03.9 Hypertension I10 Hyperlipidemia E78.5 Elevated LFTs R79.89
== END 2023-03-13 10:57 | disposition home or self-care (01) ==
PROVIDERS: PCP Internal Medicine; Visit Provider Internal Medicine
DX: E87.1 Hypo-osmolality and hyponatremia (principal); E03.9 Hypothyroidism, unspecified; I10 Essential (primary) hypertension; E78.5 Hyperlipidemia, unspecified; R79.89 Other specified abnormal findings of blood chemistry
CPT/HCPCS: 99214

== ENCOUNTER 2023-03-20 08:34 | Outpatient (REF) | payer MEDICARE, OTHER, SELFPAY ==
[2023-03-20 12:15] LABS: Anion Gap 12 (12-20); Blood Urea Nitrogen 22 mg/dL (9-16); Calcium 9.9 mg/dL (8.4-10.2); Carbon Dioxide 26 mmol/L (22-29); Chloride 102 mmol/L (96-108); Estimated Glomerular Filt Rate > 60; Glucose Random 73 mg/dL (60-115); Potassium 4.7 mmol/L (3.3-5.1); Sodium 135 mmol/L (135-145)
== END 2023-03-20 08:35 | disposition home or self-care (01) ==
LOC: HO.HMGCLDS 08:34
PROVIDERS: PCP Internal Medicine; Visit Provider Internal Medicine
DX: E87.1 Hypo-osmolality and hyponatremia (principal)
CPT/HCPCS: 36415; 80048

== ENCOUNTER 2023-04-06 07:57 | Outpatient (AMB) | payer MEDICARE, SELFPAY ==
--- NOTE | 2023-04-06 07:58 | MHC.PC.OV ---
Vital Signs 04/06/23 07:59 Height 5 ft 2 in Weight 133 lb BMI 24.3 BP 118/66 Blood Pressure Location Lt brachial Position Sitting Pulse 71 Pulse Source Pulse Oximeter Pulse Oximetry (%) 100 Oxygen Delivery Method Room Air Intake Visit Reasons: Pre op cataract surgery on 04/14/23 Intake Note: Pt is here today for a pre op visit. Pt is having cataract surgery on 04/14/[address] Turner. Allergies rosuvastatin [From Crestor] Adverse Reaction (Intermediate, Verified 04/06/23 08:01) Abdominal Pain amlodipine Adverse Reaction (Verified 04/06/23 08:01) face turned red, dizziness headaches Medication List - Last Reconciled 04/06/23 by Jade Reece MD clobetasol 0.05% 1 appl topical DAILY lisinopril 20 mg PO DAILY lorazepam 0.5 mg PO DAILY PRN metronidazole 0.75% (MetroCream) 1 appl topical BEDTIME omega-3 fatty acids 500 mg PO DAILY omeprazole 40 mg PO DAILY Tobacco use date assessed: 03/13/23 HPI Pre op cataract surgery on 04/14/23 HPI Details Patient presents for preop for cataract surgery. Hypertension and chronic GERD are stable on current medications [facility] Medical History (Updated 04/06/23 @ 08:36 by Jade Reece MD) Anxiety Hyponatremia Annual physical exam Hypothyroidism Eczema Rosacea Hypertension Dysplastic nevi Breast pain, left Elevated LFTs Hyperlipidemia Lumbar radiculopathy CREST syndrome Osteoporosis Surgical History H/O colonoscopy History of nasal septoplasty Family History (Updated 03/13/23 @ 10:12 by Ines Man [facility]) Father No problems noted. Mother No problems noted. Daughter No problems noted. Daughter No problems noted. Daughter No problems noted. Social History Housing: House Patient Tobacco Use Status: Never used Tobacco e-Cigarette/Vaping Use: Never Used Current occupational status: retired Cognitive needs: No Hearing needs: No Vision needs: Yes Questionnaire Thrive Questionnaire Date Thrive assessed: 03/13/23 DONI-7 AMB Questionnaire DONI-7 Date DONI - 7 assessed: 03/13/23 Source: Developed by Drs. Waldemar Buchanan, Robyn Burr, Jalil Sam and colleagues, with an educational mp from [employer]. Review of Systems Const All systems reviewed & are unremarkable except as noted in HPI and below Reports no additional complaints Eyes Reports no additional complaints ENT Reports no additional complaints Card Reports no additional complaints Resp Reports no additional complaints GI Reports no additional complaints Physical exam (Primary Care) Vital Signs: Last Vital Signs Pulse 71 04/06/23 07:59 BP 118/66 04/06/23 07:59 Pulse Ox 100 04/06/23 07:59 Oxygen Delivery Method Room Air 04/06/23 07:59 BMI result Body Mass Index 24.3 Tobacco/Smoking Status: Tobacco use Status Tobacco use date assessed 03/13/23 04/06/23 08:04 Patient Tobacco Use Status Never used Tobacco 04/06/23 08:04 e-Cigarette/Vaping Use Never Used 04/06/23 08:04 Thrive Assessment: Date of Thrive Assessment Date Thrive assessed 03/13/23 04/06/23 08:04 Const General: no acute distress HENMT Head: Yes normal to inspection General nose exam: Normal external nose present Throat: Yes posterior oropharynx normal Neck Neck: Yes supple Resp Effort & Inspection: normal respiratory effort Auscultation: clear to auscultation bilaterally Cardio Rhythm: regular rhythm Heart sounds: S1 normal heart sound present and S2 normal heart sound present Assessment and Plan Assessment & Plan (1) Cataract: Code(s): H26.9 - Unspecified cataract Plan: Patient is medically cleared for cataract surgery (2) Hypertension: Comment: Intolerant to amlodipine Code(s): I10 - Essential (primary) hypertension Plan: Continue Lisinopril (3) Hyperlipidemia: Comment: intolerant to Crestor, pravastatin, simvastatin, diet controlled Code(s): E78.5 - Hyperlipidemia, unspecified Coding Level of Care Code Est Pt Level 3 (44277) Diagnoses Cataract H26.9 Hypertension I10 Hyperlipidemia E78.5
[2023-04-06 07:59] VITALS: BP 118/66; PULSE 71; O2SAT 100; BMI 24.3
== END 2023-04-06 08:37 | disposition home or self-care (01) ==
PROVIDERS: PCP Internal Medicine; Visit Provider Internal Medicine
DX: H26.9 Unspecified cataract (principal); I10 Essential (primary) hypertension; E78.5 Hyperlipidemia, unspecified
CPT/HCPCS: 99213

== ENCOUNTER 2023-04-23 10:17 | Outpatient (AMB) | payer MEDICARE, SELFPAY ==
--- NOTE | 2023-04-23 10:22 | A.OFFVIS_ITS ---
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 States pain started about 4-5 months. No injury she can recall. 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 States she has radiating pain to her bicep and affects her neck. States pain is triggered with over use of shoulder. Hot compress helped. Denies P.T or past injections. Sanitary Plumber Required: Yes Sanitary Plumber Name: [id number] Allergies rosuvastatin [From Crestor] Adverse Reaction (Intermediate, Verified 04/23/23 10:22) Abdominal Pain amlodipine Adverse Reaction (Verified 04/23/23 10:22) face turned red, dizziness headaches HPI HPI Comments History of Present Illness Details 5 months, denies falls. Used to have Itugo issue while she was still working 15 years ago. She does not recall or denies any heavy lifting prior to onset. No numbness. Pain with shoulder ROM. No hand weakness.. Also with pain on lateral neck, going down to wrist. Treatment done so far: (Can't take certain medications due to l iver history) therapy - none yet; she did try exercises at home injection - none yet [facility] Medical History (Updated 04/23/23 @ 10:43 by Silvina Fabian MD) Calcific tendinitis of right shoulder Anxiety Hyponatremia Annual physical exam Hypothyroidism Eczema Rosacea Hypertension Dysplastic nevi Breast pain, left Elevated LFTs Hyperlipidemia Lumbar radiculopathy CREST syndrome Osteoporosis Surgical History H/O colonoscopy History of nasal septoplasty Family History (Updated 03/13/23 @ 10:12 by ABISAI Coffey) Father No problems noted. Mother No problems noted. Daughter No problems noted. Daughter No problems noted. Daughter No problems noted. Social History (Updated 04/23/23 @ 10:23 by Katelin Lauren 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 MSK: Inspection reveals appropriate head and neck positioning. No pain with palpation over the neck musculature. Cervical ROM was full. Spurling's sign negative. Bilateral shoulder ROM WNL. No ligamentous laxity or crepitance. No increased effusion. However there is pain on right shoulder flexion but still full range. Empty can test is mildly positive on right. Drop arm test is negative. Speed's test is negative. Neer's test is negative. Hawkin's test is positive right. Apprehension test and Relocation test are negative. Strength is 5/5 in all muscle groups tested. No increased tone noted. Neurological: Neurologic examination of the upper and lower extremities was nonfocal with intact sensation, muscle stretch reflexes and without focal motor deficits . Gore?s negative bilaterally. Gait is non-antalgic without loss of balance. Office Procedures Joint Injection/Drain Joint Injection/Drain Details: Consent was obtained. The distal, lateral, and posterior edges of the right acromion are palpated. Area is cleansed with betadine solution. A 25 gauge needle is inserted just inferior to the posterolateral edge of the acromion. The needle is directed toward the opposite nipple. A solution containing 40 mg Kenalog and 3 ml of 2% Lidocaine is injected. Patient tolerated procedure well without complications. Post-injection instructions given. Primary Site: right shoulder Injected: 40 mg of, Kenalog and with 3 mL of (2% lidocaine) Procedure: The patient tolerated the procedure well Coding 84393 - Large joint Procedure code (CPT) selection complete Results Reviewed Results Reviewed: I independently reviewed the results of the following: Calcification seen on right shoulder x-ray XR SHOULDER, RIGHT CLINICAL INFORMATION: Shoulder pain COMPARISON: None TECHNIQUE: Right shoulder is imaged in 4 views. FINDINGS: There is calcific tendinosis mid to distal superior rotator cuff. Calcification on frontal view measures approximately 4 mm in thickness by 8 mm in length. There is no fracture or dislocation or destructive process. The glenohumeral joint appears normal. There is borderline elevation distal right clavicle which could be related to a prior mild AC sprain. No before meals joint widening. XR/XR shoulder RT min 2V IMPRESSION: 1. Calcific tendinosis mid to distal superior rotator cuff. 2. Borderline elevation distal right clavicle which could be related to prior mild A.C. sprain. XR WRIST, RIGHT CLINICAL INFORMATION: Right wrist pain COMPARISON: None TECHNIQUE: PA, lateral, and oblique views of the right wrist. FINDINGS: No fracture, dislocation, or destructive process. The ulnar variance is neutral. No joint narrowing or erosive change or chondrocalcinosis. There is mild generalized osteopenia. No periarticular demineralization. XR/XR wrist RT min 3V IMPRESSION: 1. No fracture, dislocation, or arthropathy. 2. Mild generalized osteopenia. I reviewed records from the following: PCP Assessment & Plan Assessment & Plan (1) Impingement syndrome of right shoulder: Code(s): M75.41 - Impingement syndrome of right shoulder (2) Calcific tendinitis of right shoulder: Code(s): M75.31 - Calcific tendinitis of right shoulder Plan: Suspect pain is primarily from right shoulder DJD, causing impingement syndrome. We talked about conservative management including PT and injection. Patient would like to be referred to PT, order written. Patient also would like to trial injection to tape (3) Myofascial pain: Code(s): M79.18 - Myalgia, other site Plan: Some of her pain has component of myofascial along right upper trapezius. This should get better with therapy. If not we could consider trigger point injections at next follow-up. Plan Assessment and plan discussed with patient, and patient was agreeable. All questions were answered thoroughly. Follow-up 6 weeks. Silvina Fabian MD, ELISE Board Certified, [place] Board [employer] and Rehabilitation (ABPMR) Board Certified, [place] Board [employer] Electrodiagnostic [employer] (ABEM) Orders: Orders PT Evaluation and Treatment Today M75.31 - Calcific tendinitis of right shoulder, M75.41 - Impingement syndrome of right shoulder, M79.18 - Myalgia, other site AMB Joint Injection/Aspiration Today M75.31 - Calcific tendinitis of right shoulder, M75.41 - Impingement syndrome of right shoulder Coding Level of Care Code New Pt Level 4 (23848) Diagnoses Impingement syndrome of right shoulder M75.41 Calcific tendinitis of right shoulder M75.31 Myofascial pain M79.18 CPT Codes Coding - 78507 Large joint: 89290 - Large joint ([id number])
[2023-04-23 10:27] VITALS: BMI 24.3
== END 2023-04-23 11:01 | disposition home or self-care (01) ==
PROVIDERS: PCP Internal Medicine; Visit Provider Physical Medicine & Rehabilitation
DX: M75.41 Impingement syndrome of right shoulder (principal); M75.31 Calcific tendinitis of right shoulder; M79.18 Myalgia, other site
CPT/HCPCS: 20610; 99204

== ENCOUNTER → 2023-04-23 10:17 | Outpatient (BNVA) | payer MEDICARE, OTHER, SELFPAY | PROVIDERS: PCP Internal Medicine; Visit Provider Physical Medicine & Rehabilitation | DX: M75.41 Impingement syndrome of right shoulder (principal); M75.31 Calcific tendinitis of right shoulder; M79.18 Myalgia, other site | CPT/HCPCS: 20610; 99202; J3301 ==

== ENCOUNTER → 2023-06-12 07:59 | Outpatient (BNVA) | payer MEDICARE, SELFPAY | PROVIDERS: PCP Internal Medicine; Visit Provider Nurse Practitioner ==

== ENCOUNTER 2023-07-09 13:35 | Outpatient (AMB) | payer MEDICARE, SELFPAY ==
[2023-07-09 13:38] VITALS: BP 138/66; PULSE 86; O2SAT 100; BMI 24.9
--- NOTE | 2023-07-09 13:38 | MHC.PC.OV ---
Vital Signs 07/09/23 13:38 Height 5 ft 2 in Weight 136 lb BMI 24.9 BP 138/66 Blood Pressure Location Lt brachial Position Sitting Pulse 86 Pulse Source Pulse Oximeter Pulse Oximetry (%) 100 Oxygen Delivery Method Room Air Intake Visit Reasons: Burning and itching on face Intake Note: Pt is here today for a sick visit. Pt c/o itching and burning on her forehead. Allergies rosuvastatin [From Crestor] Adverse Reaction (Intermediate, Verified 07/09/23 13:43) Abdominal Pain amlodipine Adverse Reaction (Verified 07/09/23 13:43) face turned red, dizziness headaches Medication List - Last Reconciled 07/09/23 by Jade Reece MD azelaic acid 15% (Finacea) 1 appl topical BID clobetasol 0.05% 1 appl topical DAILY lisinopril 20 mg PO DAILY lorazepam 0.5 mg PO DAILY PRN metronidazole 0.75% (MetroCream) 1 appl topical BEDTIME omega-3 fatty acids 500 mg PO DAILY omeprazole 40 mg PO DAILY sod sulf-pot chloride-mag sulf 1.479-0.188- 0.225 gram (Sutab) PO PER PKG DIR for colonoscopy prep Tobacco use date assessed: 07/09/23 Fall risk assessment: No Falls in past year Last assessed Fall Risk: 07/09/23 Dental Screening Dental Screen Date: 07/09/23 Did you have a dental visit in the last 12 months?: Yes Did you have a dental problem in the last 6 months where you did not have access to dental care?: No Was dental information given to patient?: Patient has dentist HPI Burning and itching on face HPI Details Patient complains of burning and redness on her face started last week but getting better. She denies exposure to new skin products, laundry detergent , rash on her body. For rosacea patient has been using MetroCream on and off. Hypertension has been controlled on lisinopril. [facility] Medical History Hypothyroidism Calcific tendinitis of right shoulder Anxiety Hyponatremia Annual physical exam Eczema Rosacea Hypertension Dysplastic nevi Breast pain, left Elevated LFTs Hyperlipidemia Lumbar radiculopathy CREST syndrome Osteoporosis Surgical History H/O colonoscopy History of nasal septoplasty Family History Father No problems noted. Mother No problems noted. Daughter No problems noted. Daughter No problems noted. Daughter No problems noted. 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 Waldemar Buchanan, Robyn Burr, Jalil Sam and colleagues, with an educational mp from [employer]. Review of Systems Const All systems reviewed & are unremarkable except as noted in HPI and below Reports no additional complaints Eyes Reports no additional complaints ENT Reports no additional complaints Card Reports no additional complaints Resp Reports no additional complaints GI Reports no additional complaints Reports no additional complaints Physical exam (Primary Care) Vital Signs: Last Vital Signs Pulse 86 07/09/23 13:38 BP 138/66 07/09/23 13:38 Pulse Ox 100 07/09/23 13:38 Oxygen Delivery Method Room Air 07/09/23 13:38 BMI result Body Mass Index 24.9 Tobacco/Smoking Status: Tobacco use Status Tobacco use date assessed 07/09/23 07/09/23 13:44 Patient Tobacco Use Status Never used Tobacco 07/09/23 13:44 e-Cigarette/Vaping Use Never Used 07/09/23 13:40 Thrive Assessment: Date of Thrive Assessment Date Thrive assessed 03/13/23 07/09/23 13:40 Const General: no acute distress HENMT Head: Yes normal to inspection Face and sinus: Yes normal facial exam Eyes General: appearance normal, both eyes and all related structures Resp Effort & Inspection: normal respiratory effort Auscultation: clear to auscultation bilaterally Cardio Rhythm: regular rhythm Heart sounds: S1 normal heart sound present and S2 normal heart sound present GI Inspection: Yes normal to inspection Palpation (GI): Soft to palpation Assessment and Plan Assessment & Plan (1) Rosacea: Code(s): L71.9 - Rosacea, unspecified Plan: Patient will Finacea gel, and mild moisturizer. She was advised to avoid sudden temperature changes exposure to hot or cold, spicy food, alcohol (2) Hypertension: Comment: Intolerant to amlodipine Code(s): I10 - Essential (primary) hypertension Plan: Continue lisinopril (3) Hyperlipidemia: Comment: intolerant to Crestor, pravastatin, simvastatin, diet controlled Code(s): E78.5 - Hyperlipidemia, unspecified Plan: Continue low-cholesterol diet Orders: Orders Comprehensive Met. Panel Today E78.5 - Hyperlipidemia, unspecified, I10 - Essential (primary) hypertension, L71.9 - Rosacea, unspecified Vitamin D 25-OH Total Today E78.5 - Hyperlipidemia, unspecified, I10 - Essential (primary) hypertension, L71.9 - Rosacea, unspecified TSH reflex Free T4 Today E78.5 - Hyperlipidemia, unspecified, I10 - Essential (primary) hypertension, L71.9 - Rosacea, unspecified Medications: New azelaic acid 15% (Finacea) 1 appl topical BID 50 grams 2RF Coding Level of Care Code Est Pt Level 4 (50600) Diagnoses Rosacea L71.9 Hypertension I10 Hyperlipidemia E78.5
== END 2023-07-09 14:14 | disposition home or self-care (01) ==
PROVIDERS: PCP Internal Medicine; Visit Provider Internal Medicine
DX: L71.9 Rosacea, unspecified (principal); I10 Essential (primary) hypertension; E78.5 Hyperlipidemia, unspecified
CPT/HCPCS: 99214

== ENCOUNTER 2023-07-10 08:23 | Outpatient (REF) | payer MEDICARE, SELFPAY ==
[2023-07-10 12:08] LABS: Alanine Aminotransferase 32 U/L (0-31); Albumin Level 4.2 g/dL (3.5-5.0); Alkaline Phosphatase 133 U/L (39-117); Anion Gap 11 (12-20); Aspartate Amino Transferase 33 U/L (5-31); Bilirubin Total 0.4 mg/dL (0.0-1.0); Blood Urea Nitrogen 20 mg/dL (9-16); Calcium 10.1 mg/dL (8.4-10.2); Carbon Dioxide 28 mmol/L (22-29); Chloride 104 mmol/L (96-108); Estimated Glomerular Filt Rate > 60; Glucose Random 79 mg/dL (60-115); Potassium 5.1 mmol/L (3.3-5.1); Sodium 138 mmol/L (135-145); Total Protein 7.8 g/dL (6.5-8.0)
[2023-07-10 12:13] LABS: TSH reflex Free T4 6.49 uIU/mL (0.32-4.0); Vitamin D 25-OH Total 43.6 ng/mL (>30)
== END 2023-07-10 08:24 | disposition home or self-care (01) ==
LOC: HO.HMGCLDS 08:23
PROVIDERS: PCP Internal Medicine; Visit Provider Internal Medicine
DX: L71.9 Rosacea, unspecified (principal); I10 Essential (primary) hypertension; E78.5 Hyperlipidemia, unspecified
CPT/HCPCS: 36415; 80053; 82306; 84439; 84443

== ENCOUNTER 2023-07-29 11:00 | Outpatient (RCR) | payer MEDICARE, OTHER, SELFPAY ==
--- NOTE | 2023-07-23 13:59 | MHC.PT.EP ---
[facility] [place] Office [place] Office [place] Office [address] [phone] F: [phone] F: [phone] F: [phone] F: [phone] Physical Therapy Plan of Care Date of Evaluation: 07/23/23 Date of Surgery: Diagnosis: This is a 72 yo female presenting to skilled PT with a script for R shoulder impingement. Assessment: This is a 72 yo female presenting to skilled PT with a script for R shoulder impingement. Patient reporting pain starting about 6 months now insidiously. Pain is located at the upper trap and into the R lateral arm. Pain is described as dull and like something is holding it. Pain increases with sleeping on the R side, reaching overhead, UB and LB ADLs. Denies numbness or tingling. She is RHD. She has had a cortisone injection 2-3 months (helped a little but pain returned). Does not have an appointment for a follow up with ortho. Assessment reveals pain that ranges from up to a 8/10 at the worst. Patient demos decreased R shoulder and cervical ROM, strength of B shoulder's, TTP at GHJ joint line, UT and impaired posture with forward head and rounded shoulders. Based on functional limitations, impaired QOL and pain tolerance patient is a good candidate for skilled PT 2x/wk for 4wks. Frequency and Duration: The patient will be seen 2x/wk for 4wks Short Term Goals: (In 2 weeks) Demo I with HEP Improve shoulder AROM by at least 10 degs Demo proper scapular recruitment with appropriate shoulder strengthening exercises Assisted Goals: (in 4 wks) Improve shoulder nonpainful AROM to almost near equal B Demo at least 1 grade improvement in MMT for shoulder Improve SPADI by at least 10 points Improve overall functional QOL by at least 50% Treatment Plan: Modalities to reduce pain, spasms and effusion. Manual therapy to restore motion and function. Therapeutic exercise to improve strength and flexibility. Neuromuscular re-education for posture and balance. Therapeutic activities to return to functional activities of daily living. Electronically signed by: Maribel Jones PT Please sign and return to therapist. Thank you for your referral.
--- NOTE | 2023-08-13 14:23 | MHC.PT.DC ---
[facility] [place] Office [place] Office [place] Office [address] [phone] F: [phone] F: [phone] F: [phone] F: [phone] Physical Therapy Discharge Report Diagnosis: This is a 72 yo female presenting to skilled PT with a script for R shoulder impingement. Date of Surgery: Date of Evaluation: 07/23/23 Date of Discharge: 08/13/23 Treatments to Date: 2 Cancellations to Date: 0 No Shows to Date: 0 Discharge Status: Patient Elected to Stop Discharge Summary: Patient came to eval and second visit, elected to stop treatment and self DC'd. DC to HEP. Electronically signed by: Maribel Jones PT Please sign and return to therapist. Thank you for your referral.
== END 2023-08-13 14:23 | disposition home or self-care (01) ==
LOC: HO.PTCHIC 11:00
PROVIDERS: PCP Internal Medicine; Visit Provider Physical Medicine & Rehabilitation
DX: M75.41 Impingement syndrome of right shoulder (principal); M75.31 Calcific tendinitis of right shoulder; M79.18 Myalgia, other site
CPT/HCPCS: 97110; 97140; 97162

== ENCOUNTER 2023-09-17 07:32 | Outpatient (REF) | payer MEDICARE, OTHER, SELFPAY ==
[2023-09-17 12:02] LABS: Alanine Aminotransferase 26 U/L (0-31); Albumin Level 4.3 g/dL (3.5-5.0); Alkaline Phosphatase 136 U/L (39-117); Anion Gap 12 (12-20); Aspartate Amino Transferase 26 U/L (5-31); Bilirubin Total 0.5 mg/dL (0.0-1.0); Blood Urea Nitrogen 18 mg/dL (9-16); Carbon Dioxide 28 mmol/L (22-29); Chloride 101 mmol/L (96-108); Cholesterol 230 mg/dL (<200); Estimated Glomerular Filt Rate > 60; Glucose Fasting 89 mg/dL (60-99); HDL Cholesterol 64 mg/dL (>40); LDL Cholesterol Calculated 150 mg/dL (<100); Potassium 4.6 mmol/L (3.3-5.1); Sodium 136 mmol/L (135-145); Triglycerides 80 mg/dL (<150)
[2023-09-17 12:07] LABS: TSH reflex Free T4 5.15 uIU/mL (0.32-4.0)
[2023-09-17 12:46] LABS: Free T4 (Free Thyroxine) 0.96 ng/dL (0.71-1.85)
== END 2023-09-17 07:33 | disposition home or self-care (01) ==
LOC: HO.HMGCLDS 07:32
PROVIDERS: PCP Internal Medicine; Visit Provider Internal Medicine
DX: E03.9 Hypothyroidism, unspecified (principal); R79.89 Other specified abnormal findings of blood chemistry; E78.5 Hyperlipidemia, unspecified; I10 Essential (primary) hypertension
CPT/HCPCS: 36415; 80053; 80061; 84439; 84443

== ENCOUNTER 2023-10-06 07:52 | Outpatient (AMB) | payer MEDICARE, SELFPAY ==
[2023-10-06 08:20] VITALS: BP 136/70; PULSE 69; O2SAT 98; BMI 24.9
--- NOTE | 2023-10-06 08:22 | A.OFFVIS_ITS ---
Intake Vital Signs 10/06/23 08:20 10/06/23 08:28 Height 5 ft 2 in Weight 136 lb BMI 24.9 24.9 BP 136/70 Blood Pressure Location Lt brachial Position Sitting Pulse 69 Pulse Source Pulse Oximeter Pulse Oximetry (%) 98 Oxygen Delivery Method Room Air Intake Visit Reasons: SWV G0439 Allergies rosuvastatin [From Crestor] Adverse Reaction (Intermediate, Verified 10/06/23 08:22) Abdominal Pain amlodipine Adverse Reaction (Verified 10/06/23 08:22) face turned red, dizziness headaches Medication List - Last Reconciled 10/06/23 by Jade Reece MD azelaic acid 15% (Finacea) 1 appl topical BID clobetasol 0.05% 1 appl topical DAILY lisinopril 20 mg PO DAILY lorazepam 0.5 mg PO DAILY PRN metronidazole 0.75% (MetroCream) 1 appl topical BEDTIME omega-3 fatty acids 500 mg PO DAILY omeprazole 40 mg PO DAILY sod sulf-pot chloride-mag sulf 1.479-0.188- 0.225 gram (Sutab) PO PER PKG DIR for colonoscopy prep HPI SWV G0439 HPI Details Initiated the conversation about Advanced Directives. Advanced Directives help? patients prepare for current and future decisions about their medical treatment? and place of care. Discussed with patient that it is a process where a patients? current condition and prognosis are reviewed, their wishes for information? regarding their illness are elicited, and likely medical dilemmas are presented? and options discussed. The form can be amended as needed, reviewed yearly and? make changes as needed IPPE/AWV ? year old presents? for her ? Annual? Wellness Visit, initial visit.? Medical / Social History Reviewed? Past Medical History ?Yes? . ? [place]? of Care / Care Team list updated ?Yes . ? Surgical/Hospitalization? History ?Yes . ? Current Medications? (including OTC and supplements) ?Yes . ? Family History ?Yes? . ? Tobacco? Control form ?Yes . ? AUDIT-C (Alcohol use) form? ?Yes . ? Illicit drug use in Social? History ?Yes . ? Current diagnosis of? depression? ?No ? Appropriate PHQ2/PHQ9? completed ?Yes . ? Data entered by ?Medical? Ice R[employer] Attendant and reviewed by provider ? Fall Risk ? Fall? History? Have you had any falls with? injury in the past year? ?No . ? Have you had two or more? falls in the past year? ?No . ? Fall Risk Assessment: ?No? falls in the past year . ? HRA filled out by? the patient, reviewed by Provider and scanned. ? IPPE/AWV ? Balance? [place]? ?Yes . ? Tandem? walk ?Yes . ? Walk and? Turn ?Yes . ? Rise from? sit to stand ?Yes . ?Vision? Corrective? lens ?Yes ? Vision? screen ? Up-to-date, has an appointment [] for vision? screening and glaucoma screening ?Hearing? Whisper? test ?pass .? Initiated the conversation about Advanced Directives. Advanced Directives help? patients prepare for current and future decisions about their medical treatment? and place of care. Discussed with patient that it is a process where a patients? current condition and prognosis are reviewed, their wishes for information? regarding their illness are elicited, and likely medical dilemmas are presented? and options discussed. The form can be amended as needed, reviewed yearly and? make changes as needed Written? Plan?Completed. See Patient? Documents. [facility] Medical History (Updated 10/06/23 @ 10:06 by Jade Reece MD) Hypothyroidism Calcific tendinitis of right shoulder Anxiety Hyponatremia Annual physical exam Eczema Rosacea Hypertension Dysplastic nevi Breast pain, left Elevated LFTs Hyperlipidemia Lumbar radiculopathy CREST syndrome Osteoporosis Surgical History H/O colonoscopy History of nasal septoplasty Family History Father No problems noted. Mother No problems noted. Daughter No problems noted. Daughter No problems noted. Daughter No problems noted. 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 Cognitive needs: No Hearing needs: No Vision needs: Yes Questionnaire Medicare Wellness Checkup [age] What gender do you identify with?: female During the past 4 weeks, how much have you been bothered by emotional problems such as feeling anxious, depressed, irritable, sad or downhearted, and blue?: not at all During the past 4 weeks, has your physical & emotional health limited your social activities with family, friends, neighbors, or groups?: not at all During the past 4 weeks, how much bodily pain have you generally had?: no pain During the past 4 weeks, was someone available to help you if you needed & wanted help?: no, not at all During the past 4 weeks, what was the hardest physical activity you could do for at least 2 minutes?: light Can you get to places out of walking distance without help? (For eg., can you travel alone on buses, taxis or drive your car?): Yes Can you go shopping for groceries or clothes without someone's help?: Yes Can you prepare your own meals?: Yes Can you do your housework without help?: Yes Because of any health problems, do you need the help of another person with your personal care needs such as eating, bathing, dressing or getting around the house?: No Can you handle your own money without help?: Yes During the past 4 weeks, how would you rate your health in general?: excellent During the past 4 weeks how have things been going for you?: very well; could hardly better Are you having difficulties driving your car?: no Do you always fasten your seat belt when you are in a car?: yes, usually During past 4 weeks, have you been bothered by the following: never: Falling or dizzy when standing up, Sexual problems?, Trouble eating well?, Teeth or denture problems?, Problems using the telephone? and Tiredness or fatigue? Have you fallen 2 or more times in the past year?: No Are you afraid of falling?: No Are you a smoker?: no During the past 4 weeks, how many drinks of wine, beer, or other alcoholic beverages did you have?: 1 drink or less per week Do you exercise for about 20 minutes 3 or more times a week?: yes, most of the time Have you been given information to help with the following?: yes: Hazards in your house that might hurt you? and yes: Keeping track of your medications? How often do you have trouble taking medicines the way you have been told to take them?: I always take medicine as prescribed How confident are you that you can control & manage most of your health problems?: very confident What is your race?: White Mini Mental State Exam (MMSE) Orientation What is the (year) (season) (date) (day) (month)?: year, season, date, day and month Where are we (state) (county) (town or city) (hospital) (floor)?: state, county, town or city, hospital/clinic and floor Registration Name of 3 unrelated objects clearly and slowly, then ask patient to repeat all 3 of them. (1st repeat determines score. Make sure they can repeat all three): object 1, object 2 and object 3 Attention & Calculation (CHOOSE ONE) Spell WORLD backwards (DLROW): 5 letters Recall Ask patient to repeat the 3 items from question #3.: object 1, object 2 and object 3 Language Show patient a wristwatch & ask what it is. Repeat for pencil.: watch and pencil Ask the patient to repeat the phrase 'No ifs, ands, or buts' after you.: correct Ask the patient to 'take a piece of paper with their right hand' 'fold paper in half' 'place paper on floor': take paper in right hand, fold paper in half and place paper on floor Print the sentence 'CLOSE YOUR EYES' on a piece. If patient actually closes eyes then score.: followed written direction Give patient a blank piece of paper & ask to write a sentence. Score if it contains a noun & verb.: sentence contains subject and verb Score Score: 29 Activity of Daily Living Bathing - sponge bath, tub bath or shower: receives no assistance (gets in/out by self, if usual bathing means Dressing - getting clothes from closets & drawers, including inner/outer garments & fasteners.: gets clothes & gets completely dressed without help Toileting - going to the 'toilet room' for urine/bowel elimination & cleaning self/arranging clothes: goes to toilet room, cleans self, arranges clothes without help Transfer: moves in & out of bed and chair without help (may use support object) Continence: controls urination/bowel movements completely by self Feeding: feeds self without help Total Score: 0 Information obtained from: patient Using telephone: independent Traveling: independent Shopping: independent Preparing meals: independent Housework: independent Taking medicine: independent Managing money: independent PHQ-9 Over the last 2 weeks, how often have you been bothered by any of the following problems? 1. Little interest or pleasure in doing things: not at all 2. Feeling down, depressed, or hopeless: not at all 3. Trouble falling or staying asleep, or sleeping too much: not at all 4. Feeling tired or having little energy: not at all 5. Poor appetite or overeating: not at all 6. Feeling bad about yourself - or that you are a failure or have let yourself or your family down: not at all 7. Trouble concentrating on things, such as reading the newspaper or watching television: not at all 8. Moving or speaking so slowly that other people could have noticed. Or the opposite - being so fidgety or restless that you have been moving around a lot more than usual: not at all 9. Thoughts that you would be better off or of hurting yourself in some way: not at all Total score: 0 Depression Screening Interpretation: Negative Depression Screening Done: Yes Source: Developed by Drs. Waldemar Buchanan, Robyn Burr, Jalil Sam and colleagues, with an educational mp from [employer]. Review of Systems Const All systems reviewed & are unremarkable except as noted in HPI and below Reports no additional complaints Eyes Reports no additional complaints ENT Reports no additional complaints Card Reports no additional complaints Resp Reports no additional complaints GI Reports no additional complaints Reports no additional complaints Musc Reports no additional complaints Physical Exam Vital Signs: Last Vital Signs Pulse 69 10/06/23 08:20 BP 136/70 10/06/23 08:20 Pulse Ox 98 10/06/23 08:20 Oxygen Delivery Method Room Air 10/06/23 08:20 BMI result Body Mass Index 24.9 Const General: no acute distress HEENT Head: Yes normal to inspection Eyes General: appearance normal, both eyes and all related structures Neck Neck: Yes no lymphadenopathy and Yes supple Resp Effort & Inspection: normal respiratory effort Auscultation: clear to auscultation bilaterally Cardio Rhythm: regular rhythm Heart sounds: S1 normal heart sound present and S2 normal heart sound present GI Inspection: Yes normal to inspection Palpation (GI): Soft to palpation and No hepatosplenomegaly present Percussion: Yes normal to percussion Auscultation: normal bowel sounds Extrem General: Yes no clubbing, cyanosis or edema Assessment & Plan Assessment & Plan (1) Hypothyroidism: Comment: borderline, Code(s): E03.9 - Hypothyroidism, unspecified Plan: Start 25 mcg of levothyroxine check TSH in 2 months (2) Hypertension: Comment: Intolerant to amlodipine Code(s): I10 - Essential (primary) hypertension Plan: Continue lisinopril (3) Hyperlipidemia: Comment: intolerant to Crestor, pravastatin, simvastatin, diet controlled Code(s): E78.5 - Hyperlipidemia, unspecified Plan: Start Zetia, check lipid profile in 2 months (4) Tubular adenoma of colon: Comment: Last colonoscopy [facility] 2018, will have 10/17 at [facility] Code(s): D12.6 - Benign neoplasm of colon, unspecified Plan: Patient will have colonoscopy at [facility] (5) Annual physical exam: Code(s): Z00.00 - Encounter for general adult medical examination without abnormal findings Plan: WELL-BALANCED DIET REGULAR PHYSICAL ACTIVITY DISCUSSED WITH THE PATIENT SHE IS UP-TO-DATE WITH MAMMOGRAM. Patient will follow-up in 2 months Orders: Orders TSH reflex Free T4 2 Months E03.9 - Hypothyroidism, unspecified, E78.5 - Hyperlipidemia, unspecified, I10 - Essential (primary) hypertension Lipid Panel 2 Months E03.9 - Hypothyroidism, unspecified, E78.5 - Hyperlipidemia, unspecified, I10 - Essential (primary) hypertension Comprehensive Met. Panel 2 Months E03.9 - Hypothyroidism, unspecified, E78.5 - Hyperlipidemia, unspecified, I10 - Essential (primary) hypertension Medications: New ezetimibe (Zetia) 10 mg PO DAILY 90 tabs 3RF levothyroxine 25 mcg PO DAILY 90 tabs 3RF Quality Reporting (2019) Depression/Bipolar (159/160/161/177) PHQ-9: Total score: 0 Coding Level of Care Code Medicare Subsequent (G0439) Diagnoses Hypothyroidism E03.9 Hypertension I10 Hyperlipidemia E78.5 Tubular adenoma of colon D12.6 Annual physical exam Z00.00 Advance Care Planning Advance Care Planning discussion: Declined forms
[2023-10-06 08:28] VITALS: BMI 24.9
== END 2023-10-06 08:45 | disposition home or self-care (01) ==
PROVIDERS: PCP Internal Medicine; Visit Provider Internal Medicine
DX: E03.9 Hypothyroidism, unspecified (principal); I10 Essential (primary) hypertension; E78.5 Hyperlipidemia, unspecified; D12.6 Benign neoplasm of colon, unspecified; Z00.00 Encounter for general adult medical examination without abnormal findings
CPT/HCPCS: G0439

== ENCOUNTER 2023-10-29 06:53 | Day surgery (SDC) | payer MEDICARE, OTHER, SELFPAY ==
--- NOTE | 2023-10-27 15:24 | HO.ANESPROP2 ---
Documented by User: Opal Calabrese NP 10/27/23 15:25 HPI - Anesthesia Eval Consult details Narrative: 73yo F for Colonoscopy PMFSH Active Problems Active Problems: All Active Problems (Updated 10/06/23 @ 10:06 by Jade Reece MD) Hypothyroidism (Acute) Tubular adenoma of colon (Acute) Pre-op examination (Acute) Myofascial pain (Acute) Calcific tendinitis of right shoulder (Acute) Impingement syndrome of right shoulder (Acute) Cataract (Acute) Vitamin D deficiency (Acute) Abnormal colonoscopy (Acute) Wrist pain, right (Acute) Shoulder pain, right (Acute) Hypokalemia (Acute) Anxiety (Acute) Hyponatremia (Acute) Annual physical exam (Acute) Elevated LFTs (Acute) Eczema (Acute) Rosacea (Acute) Hypertension (Acute) Hyperlipidemia (Acute) Dysplastic nevi (Acute) Breast pain, left (Acute) Past Medical History Medical History Hypothyroidism Calcific tendinitis of right shoulder Anxiety Hyponatremia Annual physical exam Eczema Rosacea Hypertension Dysplastic nevi Breast pain, left Elevated LFTs Hyperlipidemia Lumbar radiculopathy CREST syndrome Osteoporosis Family History Family History Father No problems noted. Mother No problems noted. Daughter No problems noted. Daughter No problems noted. Daughter No problems noted. 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 Cognitive needs: No Hearing needs: No Vision needs: Yes Meds Allergies Allergy/AdvReac Type Severity Reaction Status Date / Time rosuvastatin [From Crestor] AdvReac Intermediate Abdominal Verified 10/29/23 07:17 Pain amlodipine AdvReac face Verified 10/29/23 07:17 turned red, dizziness headaches Home Medications ?Medication ?Instructions ?Recorded ?Confirmed ?Last Taken ?Type omega-3 fatty acids 500 mg PO DAILY 05/18/20 10/29/23 10/22/23 History Exam Pertinent Lab Results Pertinent Lab Results: Laboratory Tests 09/17/23 07:36 Sodium 136 Potassium 4.6 Chloride 101 Carbon Dioxide 28 BUN 18 H Creatinine 0.70 Assessment and Plan Assessment Anesthesia Assessment: Chart Reviewed Documented by User: Gerald Bravo MD 10/29/23 07:36 PMFSH Past Medical History Medical History Hypothyroidism Calcific tendinitis of right shoulder Anxiety Hyponatremia Annual physical exam Eczema Rosacea Hypertension Dysplastic nevi Breast pain, left Elevated LFTs Hyperlipidemia Lumbar radiculopathy CREST syndrome Osteoporosis Family History Family History Father No problems noted. Mother No problems noted. Daughter No problems noted. Daughter No problems noted. Daughter No problems noted. 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 Cognitive needs: No Hearing needs: No Vision needs: Yes Meds Allergies Allergy/AdvReac Type Severity Reaction Status Date / Time rosuvastatin [From Crestor] AdvReac Intermediate Abdominal Verified 10/29/23 07:17 Pain amlodipine AdvReac face Verified 10/29/23 07:17 turned red, dizziness headaches Home Medications ?Medication ?Instructions ?Recorded ?Confirmed ?Last Taken ?Type omega-3 fatty acids 500 mg PO DAILY 05/18/20 10/29/23 10/22/23 History Exam Airway Mallampati Class: II TM Dist: >3cm Neck ROM: Full Partial: Upper and Lower Loose/Missing/Broken Teeth: No Heart: rrr Lungs: cta Assessment and Plan Assessment Anesthesia Assessment: Anesthesia Plan Discussed Final Anesthetic Review Family History of Problems with Anesthesia: No History of Problems with Anesthesia: No NPO: Yes ASA Class: III Final Preanesthetic Review: No Changes in Pt Med Stat, Meds/Allgs Chart Reviewed, Consent Obtained/Reviewed and Anes Risks/Benef Reviewed Patient Risk: Intermediate Procedure Risk: Intermediate Anesthetic Plan Anesthetic Plan: MAC: Disposition: Standard PACU
[2023-10-29 07:15] VITALS: BMI 24.1
[2023-10-29 07:20] VITALS: BP 188/81; PULSE 78; RESP 18; TEMP 36.7; O2SAT 96
[2023-10-29] MEDS: Lactated Ringers 1,000 ML 100 ML IVCONT (07:23)
[2023-10-29 07:40] VITALS: BP 200/86
--- NOTE | 2023-10-29 08:22 | P.HPSUR_ITS ---
Pre-Procedural Eval Section A - 24 Hr Update-Section A only Date of Service: 10/29/23 Section B - Complete if H&P > 30 days Chief Complaint: Benign neoplasm of colon, unspecified Details of Present Illness: PMX Crest syndrome Calcific tendonitis History of hypokalemia and hyponatremia - resolved Hypothyroid Elevated LFTs Eczema Rosacea High cholesterol Hypertension History of dysplastic nevus a Osteoporosis Lumbar radiculopathy * SURGICAL HISTORY Nasal septoplasty Colonoscopy-2018 at [place] * ALLERGIES Crestor Amlodipine Allergies: Allergies Allergy/AdvReac Type Severity Reaction Status Date / Time rosuvastatin [From Crestor] AdvReac Intermediate Abdominal Verified 10/29/23 07:17 Pain amlodipine AdvReac face Verified 10/29/23 07:17 turned red, dizziness headaches Review of Systems Review of Systems Comment: Ten point ROS negative Exam Exam Comment: Gen appear: No acute distress HEENT: no icterus Chest: No overt resp distress Abd: soft, nontender, nondistended Psych: Stable affect, answering questions appropriately Neuro: A/Ox3 noted to move all extremities spontaneously Ext: no peripheral edema Plan Diagnosis/Plan: Unchanged I have reviewed the history and physical and performed a pertinent physical examination on my patient. No changes have occurred unless specified. Time Spent With Patient Time: Total time managing care of this patient today ____ minutes.
--- NOTE | 2023-10-29 08:23 | W.PM.OPN ---
Operative Note Operative Note Date of Service: 10/29/23 Narrative: Procedure: Colonoscopy Indication: Personal history of polyps Endoscopist: Jessica Frazier MD Anesthesia Provider: Carmen Rodgers CRNA Anesthesia type: MAC Instrument: Olympus [id number]-[id number] Consent: Indication, risks vs benefits, and alternatives were discussed with the patient who gave written informed consent to proceed. An Georgian injection machine operator was utilized to assist with the consent. EKG, pulse, pulse oximetry and blood pressure were monitored throughout the procedure. Please see anesthesia flowsheet. Procedure: The patient was brought to the procedure room and placed in the left lateral decubitus position. IV medications were administered by the anesthesia provider in attendance. A digital rectal exam was performed which was abnormal due to finding of hemorrhoids. A distal attachment cap was affixed to the tip of the scope and the colonoscope was then inserted through the anus and advanced through the colon to the cecum at 75 cm,and terminal ileum. Appendiceal orifice and ileocecal valve were identified. Mucosa was carefully examined under high definition white light as the instrument was slowly withdrawn in a retrograde panoramic fashion. Retroflexion was performed in ascending colon and rectum. The procedure was not difficult. There were no immediate obvious complications. The quality of the prep was BBPS: 3+2+3 = adequate Withdrawal time 8 minutes. Limitations: No limitations. Findings: Mucosa: A 1 cm focal area of erythema and nodularity noted in the transverse colon at 65 cm. Cold forceps biopsies were taken for histology. Remaining mucosa normal to cecum and terminal ileum. Protruding lesions: 1 sessile polyp of size 3 mm in transverse colon. Cold forceps polypectomy was performed. The polyp was completely removed and retrieved. Medium internal hemorrhoids without stigmata of recent bleeding. Impression: 1. Abnormal mucosa in transverse colon 2. Total of 1 polyp removed. 3. External amd internal hemorrhoids Recommendations: - Follow path results. - Repeat colonoscopy in 10 years if patient in good health, otherwise can defer future colonoscopies due to age
[2023-10-29 08:55] VITALS: BP 170/64; PULSE 67; RESP 14; TEMP 36.2; O2SAT 99
[2023-10-29 09:10] VITALS: BP 181/82; PULSE 63; RESP 18; TEMP 36.1; O2SAT 98
== END 2023-10-29 09:25 | disposition home or self-care (01) ==
PROVIDERS: PCP Internal Medicine; Visit Provider Internal Medicine
PROC: 0DJD8ZZ Inspection of Lower Intestinal Tract, Via Natural or Artificial Opening Endoscopic (ICD-10-PCS; CPT 45378; principal; 2023-10-29 08:00)
DX: Z12.11 Encounter for screening for malignant neoplasm of colon (principal); K63.5 Polyp of colon; K64.4 Residual hemorrhoidal skin tags; K64.8 Other hemorrhoids; Z86.010 Personal history of colon polyps; I10 Essential (primary) hypertension
CPT/HCPCS: 45380; 88305; J2704

== ENCOUNTER → 2023-10-29 06:53 | Outpatient (BNV) | payer MEDICARE, MEDICAID, SELFPAY | PROVIDERS: PCP Internal Medicine; Visit Provider Internal Medicine | DX: Z12.11 Encounter for screening for malignant neoplasm of colon (principal); Z86.010 Personal history of colon polyps; K63.5 Polyp of colon; K64.8 Other hemorrhoids | CPT/HCPCS: 45380 ==

== ENCOUNTER 2023-11-13 10:07 | Outpatient (AMB) | payer MEDICARE, SELFPAY ==
--- NOTE | 2023-11-13 10:12 | A.OFFVIS_ITS ---
Vital Signs 11/13/23 10:18 Height 5 ft 2 in Weight 138 lb BMI 25.2 BP 187/84 H Blood Pressure Location Lt brachial Position Sitting Pulse 78 Intake Visit Reasons: s/p colon Intake Note: Patient seen in office for post op assessment post colonoscopy. Pt c/o:denies any concerns at the time of visit. Director Of Institutional Research Required: No Accompanied by: Family/Other Allergies rosuvastatin [From Crestor] Adverse Reaction (Intermediate, Verified 11/13/23 10:17) Abdominal Pain amlodipine Adverse Reaction (Verified 11/13/23 10:17) face turned red, dizziness headaches HPI HPI s/p colon: Details: Assessment & Plan (1) Pre-op examination: Code(s): Z01.818 - Encounter for other preprocedural examination Plan: Meghan # dtr translates She is here with her daughter who is supportive. Bina dtr [phone] call for appt She had prior colonoscopy with polyps at [facility] about 5 years ago. She requests to try for pill prep or lower volume prep. She has some instances of incomplete evacuation, we discuss fluids and fiber, her GERD is well controlled and no other upper GI problems. She denies any cardiac or respiratory problems. There are no prior problems with anesthesia or sedation. No ID problems. She has had polyps, otherwise no known FHX crc or polyps. (2) Tubular adenoma of colon: Comment: Prior scopes at [facility] Medical Code(s): D12.6 - Benign neoplasm of colon, unspecified Orders: Orders Colonoscopy - GI Use Only Today Z01.818 - Encounter for other preprocedural examination Medications: New sod sulf-pot chloride-mag sulf 1.479-0.188- 0.225 gram (Sutab) PO PER PKG DIR for colonoscopy prep 24 tabs 0RF COLONOSCOPY 10/29/23 Findings: Mucosa: A 1 cm focal area of erythema and nodularity noted in the transverse colon at 65 cm. Cold forceps biopsies were taken for histology. Remaining mucosa normal to cecum and terminal ileum. Protruding lesions: * 1 sessile polyp of size 3 mm in transverse colon. Cold forceps polypectomy was performed. The polyp was completely removed and retrieved. * Medium internal hemorrhoids without stigmata of recent bleeding. * Impression: 1. Abnormal mucosa in transverse colon 2. Total of 1 polyp removed. 3. External amd internal hemorrhoids Recommendations: - Follow path results. - Repeat colonoscopy in 10 years if patient in good health, otherwise can defer future colonoscopies due to age BIOPSY Received: 10/29/23 Diagnosis A. Colon, transverse, polypectomy: Colonic mucosa with prominent lymphoid aggregate. B. Colon, transverse abnormal mucosa, biopsy: Colonic mucosa within normal limits. TODAY'S VISIT She is accompanied by her who is supportive. She is agreeable to a 10 year follow up. The procedure was well tolerated. The results were explained and the patient is agreeable to the follow-up interval as stated. The bowel pattern has returned to normal. Education was provided to tell any 1st degree relatives about their findings to be sure that they are screened by age 45. Educated that they will be put on a recall list when it is time for their repeat scope but should they move out of state or away from the hospital they will need to remember along with their primary to repeat the procedure in a timely fashion to avoid any adverse complications. [facility] Medical History Hypothyroidism Calcific tendinitis of right shoulder Anxiety Hyponatremia Annual physical exam Eczema Rosacea Hypertension Dysplastic nevi Breast pain, left Elevated LFTs Hyperlipidemia Lumbar radiculopathy CREST syndrome Osteoporosis Surgical History H/O colonoscopy History of nasal septoplasty Family History Father No problems noted. Mother No problems noted. Daughter No problems noted. Daughter No problems noted. Daughter No problems noted. 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 Cognitive needs: No Hearing needs: No Vision needs: Yes Review of Systems Const Denies fatigue, Denies fever(s), Denies night sweats, Denies poor appetite and Denies weight loss ENT Reports Normal hearing present, Denies dental pain, Denies dysphagia, Denies hearing loss, Denies mouth pain, Denies odynophagia, Denies throat swelling, Denies tongue swelling and Reports other (Dentition adequate) Card Reports no additional complaints Resp Reports no additional complaints GI Details: Denies abdominal pain, Denies melena, Denies bloating, Denies hematochezia, Denies constipation, Denies GI cramping, Denies dysphagia, Denies excessive flatus, Denies early satiety, Denies heartburn, Denies diarrhea, Denies nausea, Denies odynophagia, Denies vomiting and Denies hematemesis Skin/Breast Denies pruritus, Denies lesions, Denies rash and Denies jaundice Neuro Reports Normal hearing present and Denies Abnormal speech present Endo Denies fatigue Aller/Immun Denies throat swelling and Denies tongue swelling Physical Exam Vital Signs: Last Vital Signs Pulse 78 11/13/23 10:18 BP 187/84 H 11/13/23 10:18 BMI result Body Mass Index 25.2 Const General: cooperative, no acute distress, well developed and well groomed Nutritional Appearance: average body habitus and well nourished Orientation/consciousness: oriented to person, oriented to place and oriented to time Limitations: No language barrier HEENT Head: Yes normocephalic and Yes atraumatic Eyes General: appearance normal, both eyes and all related structures Pupils: Equal, round and reactive pupils present Neck Neck: Yes normal visual inspection and Yes no lymphadenopathy Thyroid: Thyroid normal Resp Effort & Inspection: normal respiratory effort and able to speak in complete sentences Auscultation: clear to auscultation bilaterally Cardio Rate: regular rate Rhythm: regular rhythm Heart sounds: Normal, physiologic split S2 sound present Peripheral pulses: radial pulses present and posterior tibial pulses present GI Inspection: No distended and No Abdominal panniculus present Palpation (GI): Soft to palpation, nontender, no guarding, not rigid and No hepatosplenomegaly present Percussion: Yes normal to percussion Auscultation: normal bowel sounds Rectal Exam - Female: deferred Skin General skin exam: no rashes or lesions noted, turgor normal, skin not dry, no jaundice, No spider nevi and no striae Rashes: no rashes Nails: normal Neuro General: oriented to person, oriented to place and oriented to time Cranial nerves: Yes Equal, round and reactive pupils present and Yes Normal hearing present Speech: No Abnormal speech present Extrem General: Yes normal to inspection, No clubbing, No cyanosis and No edema Psych Appearance: grossly normal and well kempt Mental Status: mental status grossly normal Speech and movement: Normal speech and movement present Affect: normal affect Attitude: cooperative Thought process: Normal thought process present and not confabulating Thought content: Normal thought content present Insight: Fair insight present (Psych) Judgement: Fair judgement present (Psych) Assessment & Plan Assessment & Plan (1) Tubular adenoma of colon: Comment: 2023 scope=false polyps only repeat 5 eyars; Last colonoscopy [facility] 2017, will [facility] 10[facility]17 [place] [facility] Code(s): D12.6 - Benign neoplasm of colon, unspecified Category: Medical Plan She is accompanied by her who is supportive. She is agreeable to a 10 year follow up. The procedure was well tolerated. The results were explained and the patient is agreeable to the follow-up interval as stated. The bowel pattern has returned to normal. Education was provided to tell any 1st degree relatives about their findings to be sure that they are screened by age 45. Educated that they will be put on a recall list when it is time for their repeat scope but should they move out of state or away from the hospital they will need to remember along with their primary to repeat the procedure in a timely fashion to avoid any adverse complications.
[2023-11-13 10:18] VITALS: BP 187/84; PULSE 78; BMI 25.2
== END 2023-11-13 10:34 | disposition home or self-care (01) ==
PROVIDERS: PCP Internal Medicine; Visit Provider Nurse Practitioner
DX: D12.6 Benign neoplasm of colon, unspecified (principal)
CPT/HCPCS: 99213

== ENCOUNTER → 2023-11-13 10:07 | Outpatient (BNVA) | payer MEDICARE, SELFPAY | PROVIDERS: PCP Internal Medicine; Visit Provider Nurse Practitioner | DX: D12.6 Benign neoplasm of colon, unspecified (principal); Z71.2 Person consulting for explanation of examination or test findings | CPT/HCPCS: 99212 ==

== ENCOUNTER 2023-12-03 08:51 | Outpatient (REF) | payer MEDICARE, SELFPAY ==
[2023-12-03 11:17] LABS: Alanine Aminotransferase 21 U/L (0-31); Albumin Level 4.4 g/dL (3.5-5.0); Alkaline Phosphatase 141 U/L (39-117); Anion Gap 15 (12-20); Aspartate Amino Transferase 22 U/L (5-31); Bilirubin Total 0.5 mg/dL (0.0-1.0); Blood Urea Nitrogen 17 mg/dL (9-16); Calcium 10.4 mg/dL (8.4-10.2); Carbon Dioxide 25 mmol/L (22-29); Chloride 101 mmol/L (96-108); Cholesterol 196 mg/dL (<200); Estimated Glomerular Filt Rate > 60; Glucose Random 95 mg/dL (60-115); HDL Cholesterol 57 mg/dL (>40); LDL Cholesterol Calculated 124 mg/dL (<100); Potassium 4.7 mmol/L (3.3-5.1); Sodium 136 mmol/L (135-145); Total Protein 8.1 g/dL (6.5-8.0); Triglycerides 79 mg/dL (<150)
[2023-12-03 11:23] LABS: TSH reflex Free T4 3.92 uIU/mL (0.32-4.0)
== END 2023-12-03 08:52 | disposition home or self-care (01) ==
LOC: HO.HMGCLDS 08:51
PROVIDERS: PCP Internal Medicine; Visit Provider Internal Medicine
DX: E03.9 Hypothyroidism, unspecified (principal); I10 Essential (primary) hypertension; E78.5 Hyperlipidemia, unspecified
CPT/HCPCS: 36415; 80053; 80061; 84443

== ENCOUNTER 2023-12-08 11:10 | Outpatient (AMB) | payer MEDICARE, SELFPAY ==
[2023-12-08 11:11] VITALS: BP 139/85; PULSE 85; O2SAT 99; BMI 24.9
--- NOTE | 2023-12-08 11:11 | MHC.PC.OV ---
Vital Signs 12/08/23 11:11 Height 5 ft 2 in Weight 136 lb BMI 24.9 BP 139/85 Blood Pressure Location Rt brachial Position Sitting Pulse 85 Pulse Source Pulse Oximeter Pulse Oximetry (%) 99 Oxygen Delivery Method Room Air Intake Visit Reasons: 2 month follow up Intake Note: Pt is here today for 2 months follow up visit on labs and BP. Allergies rosuvastatin [From Crestor] Adverse Reaction (Intermediate, Verified 12/08/23 11:11) Abdominal Pain amlodipine Adverse Reaction (Verified 12/08/23 11:11) face turned red, dizziness headaches Medication List - Last Reconciled 12/08/23 by Jade Reece MD baclofen 10 mg PO BEDTIME ezetimibe (Zetia) 10 mg PO DAILY levothyroxine 25 mcg PO DAILY lisinopril 20 mg PO DAILY omega-3 fatty acids 500 mg PO DAILY omeprazole 40 mg PO DAILY Tobacco use date assessed: 12/08/23 Fall risk assessment: No Falls in past year Last assessed Fall Risk: 12/08/23 Dental Screening Dental Screen Date: 12/08/23 Did you have a dental visit in the last 12 months?: Yes Did you have a dental problem in the last 6 months where you did not have access to dental care?: No Was dental information given to patient?: Patient has dentist HPI 2 month follow up HPI Details Pt presents for HTN, hyperlipid, stable on meds. Pt c/o positional LBP for 1 week after working in the garden. The pain is not radiating to lower extremity there is no change in bowel bladder function. Patient is concerned about kidney stones but denies hematuria dysuria nausea vomiting. [facility] Medical History Hypothyroidism Calcific tendinitis of right shoulder Anxiety Hyponatremia Annual physical exam Eczema Rosacea Hypertension Dysplastic nevi Breast pain, left Elevated LFTs Hyperlipidemia Lumbar radiculopathy CREST syndrome Osteoporosis Surgical History H/O colonoscopy History of nasal septoplasty Family History Father No problems noted. Mother No problems noted. Daughter No problems noted. Daughter No problems noted. Daughter No problems noted. 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 Waldemar Buchanan, Robyn Burr, Jalil Sam and colleagues, with an educational mp from [employer]. Review of Systems Const All systems reviewed & are unremarkable except as noted in HPI and below Eyes Reports no additional complaints ENT Reports no additional complaints Card Reports no additional complaints Resp Reports no additional complaints GI Reports no additional complaints Reports no additional complaints Physical exam (Primary Care) Vital Signs: Last Vital Signs Pulse 85 12/08/23 11:11 Pulse Ox 99 12/08/23 11:11 Oxygen Delivery Method Room Air 12/08/23 11:11 BMI result Body Mass Index 24.9 Tobacco/Smoking Status: Tobacco use Status Tobacco use date assessed 12/08/23 12/08/23 11:13 Patient Tobacco Use Status Never used Tobacco 12/08/23 11:13 e-Cigarette/Vaping Use Never Used 12/08/23 11:13 Thrive Assessment: Date of Thrive Assessment Date Thrive assessed 03/13/23 12/08/23 11:13 Const General: no acute distress HENMT Head: Yes normal to inspection Neck Neck: Yes no lymphadenopathy and Yes supple Resp Effort & Inspection: normal respiratory effort Auscultation: clear to auscultation bilaterally Cardio Rhythm: regular rhythm Heart sounds: S1 normal heart sound present and S2 normal heart sound present GI Inspection: Yes normal to inspection Palpation (GI): Soft to palpation Percussion: Yes normal to percussion Auscultation: normal bowel sounds Back/Spine/Pelvis Other: Paraspinal tenderness in mid lumbar region right more than left, straight leg rising 90 degrees bilaterally, strength 5/5 bilaterally, no flank tenderness Assessment and Plan Assessment & Plan (1) Flank pain: Code(s): R10.9 - Unspecified abdominal pain Plan: Check UA if positive for hematuria obtain renal ultrasound to rule out nephrolithiasis (2) Hypertension: Comment: Intolerant to amlodipine Code(s): I10 - Essential (primary) hypertension Plan: Increase lisinopril to 20 mg twice a day check basic metabolic panel 1 week follow-up in 6 weeks (3) Hypothyroidism: Comment: borderline, Code(s): E03.9 - Hypothyroidism, unspecified Plan: Continue levothyroxine (4) Hyperlipidemia: Comment: intolerant to Crestor, pravastatin, simvastatin, diet controlled Code(s): E78.5 - Hyperlipidemia, unspecified Plan: Continue Zetia and low-cholesterol diet (5) Acute bilateral low back pain: Code(s): M54.50 - Low back pain, unspecified Plan: FOLLOW-UP BACK PAIN CONTINUE [id number] IBUPROFEN AND ADD BACLOFEN Q.H.S. if the symptoms persist patient will be referred to physical therapy Orders: Orders UA w Microscopic Today R10.9 - Unspecified abdominal pain Basic Metabolic Panel Today I10 - Essential (primary) hypertension Medications: New baclofen 10 mg PO BEDTIME 10 tabs 0RF Changed From lisinopril 20 mg PO DAILY 90 tabs 3RF To lisinopril 20 mg PO BID 180 tabs 3RF Coding Level of Care Code Est Pt Level 4 (60000) Diagnoses Flank pain R10.9 Hypertension I10 Hypothyroidism E03.9 Hyperlipidemia E78.5 Acute bilateral low back pain M54.50
== END 2023-12-08 11:41 | disposition home or self-care (01) ==
PROVIDERS: PCP Internal Medicine; Visit Provider Internal Medicine
DX: R10.9 Unspecified abdominal pain (principal); I10 Essential (primary) hypertension; E03.9 Hypothyroidism, unspecified; E78.5 Hyperlipidemia, unspecified; M54.50 Low back pain, unspecified
CPT/HCPCS: 99214

== ENCOUNTER 2023-12-08 11:41 | Outpatient (REF) | payer MEDICARE, SELFPAY ==
[2023-12-08 13:35] LABS: Appearance Urine Clear; Color Urine Yellow; Glucose Urine UA Negative (Negative); Leukocyte Esterase Urine Negative (Negative); Nitrite Urine Negative (Negative); PH 6.5 (5.0-9.0); Urine Blood Negative (Negative); Urine Ketones Negative (Negative); Urine Protein Negative (Neg-Trace)
[2023-12-08 13:39] LABS: Bacteria Urine None Seen (None Seen); Hyaline Casts Urine 0-2 /LPF (0-2); RBC Urine 0-2 /HPF (0-2); Squamous Epithelial Cell Urine 0-2 /HPF (0-2); WBC Urine 0-5 /HPF (0-5)
== END 2023-12-08 11:42 | disposition home or self-care (01) ==
LOC: HO.HMGCLDS 11:41
PROVIDERS: PCP Internal Medicine; Visit Provider Internal Medicine
DX: R10.9 Unspecified abdominal pain (principal)
CPT/HCPCS: 81001

== ENCOUNTER 2023-12-15 06:51 | Outpatient (REF) | payer MEDICARE, SELFPAY ==
[2023-12-15 10:57] LABS: Anion Gap 12 (12-20); Blood Urea Nitrogen 15 mg/dL (9-16); Carbon Dioxide 27 mmol/L (22-29); Chloride 103 mmol/L (96-108); Estimated Glomerular Filt Rate > 60; Glucose Random 95 mg/dL (60-115); Potassium 4.8 mmol/L (3.3-5.1); Sodium 137 mmol/L (135-145)
== END 2023-12-15 06:52 | disposition home or self-care (01) ==
LOC: HO.HMGCLDS 06:51
PROVIDERS: PCP Internal Medicine; Visit Provider Internal Medicine
DX: I10 Essential (primary) hypertension (principal)
CPT/HCPCS: 36415; 80048

== ENCOUNTER 2024-02-19 12:34 | Outpatient (AMB) | payer MEDICARE, SELFPAY ==
[2024-02-19 12:49] VITALS: BP 130/74; PULSE 62; BMI 25.1
--- NOTE | 2024-02-19 12:49 | MHC.PC.OV ---
Vital Signs 02/19/24 12:49 Height 5 ft 2 in Weight 137 lb BMI 25.1 BP 130/74 Blood Pressure Location Rt brachial Position Sitting Pulse 62 Pulse Source Pulse Oximeter Intake Visit Reasons: Follow up Intake Note: Pt is here today for a follow up visit. Allergies rosuvastatin [From Crestor] Adverse Reaction (Intermediate, Verified 02/19/24 12:50) Abdominal Pain amlodipine Adverse Reaction (Verified 02/19/24 12:50) face turned red, dizziness headaches Medication List - Last Reconciled 02/19/24 by Jade Reece MD ezetimibe (Zetia) 10 mg PO DAILY levothyroxine 25 mcg PO DAILY lisinopril 20 mg PO BID omega-3 fatty acids 500 mg PO DAILY omeprazole 40 mg PO DAILY Tobacco use date assessed: 02/19/24 Fall risk assessment: No Falls in past year Last assessed Fall Risk: 02/19/24 Dental Screening Dental Screen Date: 12/08/23 HPI Follow up HPI Details Pt presents for f/u HTN, hyperlipid, stable on meds. Pt complains of chronic right lateral hip pain worse when walking longer distance or lying on the right side. Patient was seen by chiropractor and started stretching exercises with only minimal relief. [facility] Medical History Hypothyroidism Calcific tendinitis of right shoulder Anxiety Hyponatremia Annual physical exam Eczema Rosacea Hypertension Dysplastic nevi Breast pain, left Elevated LFTs Hyperlipidemia Lumbar radiculopathy CREST syndrome Osteoporosis Surgical History H/O colonoscopy History of nasal septoplasty Family History Father No problems noted. Mother No problems noted. Daughter No problems noted. Daughter No problems noted. Daughter No problems noted. 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 1. Little interest or pleasure in doing things: not at all 2. Feeling down, depressed, or hopeless: not at all 3. Trouble falling or staying asleep, or sleeping too much: not at all 4. Feeling tired or having little energy: not at all 5. Poor appetite or overeating: not at all 6. Feeling bad about yourself - or that you are a failure or have let yourself or your family down: not at all 7. Trouble concentrating on things, such as reading the newspaper or watching television: not at all 8. Moving or speaking so slowly that other people could have noticed. Or the opposite - being so fidgety or restless that you have been moving around a lot more than usual: not at all 9. Thoughts that you would be better off or of hurting yourself in some way: not at all Total score: 0 Depression Screening Interpretation: Negative Depression Screening Done: Yes Source: Developed by Drs. Waldemar Buchanan, Robyn Burr, Jalil Sam and colleagues, with an educational mp from [employer]. Thrive Questionnaire Date Thrive assessed: 02/19/24 I am a: Patient What is your living situation today?: I have a steady place to live Within the past 12 months, did the food you bought not last and you didn't have the money to get more?: Often true Within the past 12 months, did you worry whether your food would run out before you got money to buy more?: Never true Do you have trouble paying for medicines?: No Do you have trouble getting transportation to medical appointments?: No Do you have trouble paying your heating and electricity bill?: No Do you have trouble taking care of your child, family member or friend?: No Do you have trouble with day-to-day activities such as bathing, preparing meals, shopping, managing finances, etc.?: No Are you currently unemployed and looking for a job?: No Are you interested in more education?: No Please select the resources that you would like help with: Housing/Assisted Currently or been in a relationship where the following occur: No concerns reported THRIVE Score: 1 AUDIT C Alcohol Use Questionnaire (AUDIT-C) 1. How often do you have a drink containing alcohol?: Never 3. How often do you have six or more drinks on one occasion?: Never Total Score: 0 DONI-7 AMB Questionnaire DONI-7 Date DONI - 7 assessed: 02/19/24 Feeling nervous, anxious, or on edge: 0 = Not at all Not being able to stop or control worryin = Not at all Worrying too much about different things: 0 = Not at all Trouble relaxin = Not at all Being so restless that it is hard to sit still: 0 = Not at all Becoming easily annoyed or irritable: 0 = Not at all Feeling afraid as if something awful might happen: 0 = Not at all Total DONI-7 score (0-4 normal; 5-9 mild; 10-14 moderate; 15-21 severe): 0 Source: Developed by Drs. Waldemar Buchanan, Robyn Burr, Jalil Sam and colleagues, with an educational mp from [employer]. Review of Systems Const All systems reviewed & are unremarkable except as noted in HPI and below Eyes Reports no additional complaints ENT Reports no additional complaints Card Reports no additional complaints Resp Reports no additional complaints GI Reports no additional complaints Reports no additional complaints Physical exam (Primary Care) Vital Signs: Last Vital Signs Pulse 62 02/19/24 12:49 BP 130/74 02/19/24 12:49 BMI result Body Mass Index 25.1 Tobacco/Smoking Status: Tobacco use Status Tobacco use date assessed 02/19/24 02/19/24 12:53 Patient Tobacco Use Status Never used Tobacco 02/19/24 12:53 e-Cigarette/Vaping Use Never Used 02/19/24 12:53 PHQ-9: PHQ-9 Score PHQ-9: Total score 0 02/19/24 13:04 Depression Screening Interpretation: Negative Thrive Assessment: Date of Thrive Assessment Date Thrive assessed 02/19/24 02/19/24 13:04 Currently or been in a relationship where the following occur: No concerns reported Const General: no acute distress HENMT Head: Yes normal to inspection Face and sinus: Yes normal facial exam Eyes General: appearance normal, both eyes and all related structures Neck Neck: Yes supple Resp Effort & Inspection: normal respiratory effort Auscultation: clear to auscultation bilaterally Cardio Rhythm: regular rhythm Heart sounds: S1 normal heart sound present and S2 normal heart sound present GI Inspection: Yes normal to inspection Palpation (GI): Soft to palpation Percussion: Yes normal to percussion Auscultation: normal bowel sounds Extrem Other: Reproducible tenderness in the right trochanteric area slightly decreased range of motion right hip Assessment and Plan Assessment & Plan (1) Hip pain, right: Code(s): M25.551 - Pain in right hip Plan: check XR, PT was recommended but patient declined, she was given exercises for trochanteric bursitis if her symptoms persist patient will be referred to orthopedic surgeon for cortisone inj (2) Hyperlipidemia: Comment: intolerant to Crestor, pravastatin, simvastatin, Code(s): E78.5 - Hyperlipidemia, unspecified Plan: Continue Zetia (3) Hypertension: Comment: Intolerant to amlodipine Code(s): I10 - Essential (primary) hypertension Plan: Continue lisinopril follow-up in 6 months Orders: Orders Lipid Panel Today M25.551 - Pain in right hip TSH reflex Free T4 Today M25.551 - Pain in right hip XR hip RT min 2V Today M25.551 - Pain in right hip Comprehensive Mobile. Panel Fast Today M25.551 - Pain in right hip Coding Level of Care Code Est Pt Level 4 (51414) Diagnoses Hip pain, right M25.551 Hyperlipidemia E78.5 Hypertension I10
== END 2024-02-19 13:34 | disposition home or self-care (01) ==
PROVIDERS: PCP Internal Medicine; Visit Provider Internal Medicine
DX: M25.551 Pain in right hip (principal); E78.5 Hyperlipidemia, unspecified; I10 Essential (primary) hypertension
CPT/HCPCS: 99214

== ENCOUNTER 2024-02-19 13:24 | Outpatient (REF) | payer MEDICARE, SELFPAY ==
--- NOTE | ~2024-02-19 | XR_ITS ---
EXAMINATION: XR HIP, RIGHT CLINICAL INFORMATION: Pain in the right hip COMPARISON: None available. TECHNIQUE: Two views of the right hip. FINDINGS: The joint spaces surrounding bone are normal. There is a focal area of calcific or ossific density adjacent to the greater trochanter laterally. XR/XR hip RT min 2V IMPRESSION: 1. Calcific or ossific density adjacent to the greater trochanter. This could reflect calcific tendinitis or calcific bursitis versus ossification related to prior soft tissue trauma. 2. Otherwise unremarkable.
== END 2024-02-19 13:25 | disposition home or self-care (01) ==
LOC: HO.HMGCX 13:24
PROVIDERS: PCP Internal Medicine; Visit Provider Internal Medicine
DX: M25.551 Pain in right hip (principal)
CPT/HCPCS: 73502

== ENCOUNTER 2024-03-07 07:29 | Outpatient (REF) | payer MEDICARE, SELFPAY ==
[2024-03-07 10:17] LABS: Alanine Aminotransferase 27 U/L (0-31); Albumin Level 4.3 g/dL (3.5-5.0); Alkaline Phosphatase 147 U/L (39-117); Anion Gap 9 (12-20); Aspartate Amino Transferase 26 U/L (5-31); Bilirubin Total 0.5 mg/dL (0.0-1.0); Blood Urea Nitrogen 21 mg/dL (9-16); Calcium 9.6 mg/dL (8.4-10.2); Carbon Dioxide 27 mmol/L (22-29); Chloride 103 mmol/L (96-108); Cholesterol 189 mg/dL (<200); Estimated Glomerular Filt Rate > 60; Glucose Fasting 97 mg/dL (60-99); HDL Cholesterol 63 mg/dL (>40); LDL Cholesterol Calculated 113 mg/dL (<100); Potassium 4.4 mmol/L (3.3-5.1); Sodium 135 mmol/L (135-145); Total Protein 7.8 g/dL (6.5-8.0); Triglycerides 67 mg/dL (<150)
== END 2024-03-07 07:30 | disposition home or self-care (01) ==
LOC: HO.HMGCLDS 07:29
PROVIDERS: PCP Internal Medicine; Visit Provider Internal Medicine
DX: M25.551 Pain in right hip (principal)
CPT/HCPCS: 36415; 80053; 80061; 84443

== ENCOUNTER 2024-03-11 08:26 | Outpatient (AMB) | payer MEDICARE, SELFPAY ==
[2024-03-11 08:28] VITALS: BP 128/72; PULSE 58; BMI 24.5
--- NOTE | 2024-03-11 08:28 | A.OFFPC_ITS ---
Vital Signs 03/11/24 08:28 Height 5 ft 2 in Weight 134 lb BMI 24.5 BP 128/72 Blood Pressure Location Rt brachial Position Sitting Pulse 58 Pulse Source Pulse Oximeter Intake Visit Reasons: Hospital follow up Allergies rosuvastatin [From Crestor] Adverse Reaction (Intermediate, Verified 03/11/24 08:29) Abdominal Pain amlodipine Adverse Reaction (Verified 03/11/24 08:29) face turned red, dizziness headaches Medication List - Last Reconciled 03/11/24 by Jade Reece MD amlodipine 10 mg PO DAILY ezetimibe (Zetia) 10 mg PO DAILY levothyroxine 25 mcg PO DAILY lisinopril 20 mg PO BID omega-3 fatty acids 500 mg PO DAILY omeprazole 40 mg PO DAILY Tobacco use date assessed: 02/19/24 Dental Screening Dental Screen Date: 12/08/23 HPI Hospital follow up HPI Details Pt presents for f/u hospitalization at [facility] for acute diarrhea and elevated BP and started Amlodipine 1/2 tabl a day. [facility] Medical History (Updated 03/11/24 @ 09:15 by Jade Reece MD) Hypothyroidism Calcific tendinitis of right shoulder Anxiety Hyponatremia Annual physical exam Eczema Rosacea Hypertension Dysplastic nevi Breast pain, left Elevated LFTs Hyperlipidemia Lumbar radiculopathy CREST syndrome Osteoporosis Surgical History H/O colonoscopy History of nasal septoplasty Family History Father No problems noted. Mother No problems noted. Daughter No problems noted. Daughter No problems noted. Daughter No problems noted. 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 1. Little interest or pleasure in doing things: not at all 2. Feeling down, depressed, or hopeless: not at all 3. Trouble falling or staying asleep, or sleeping too much: not at all 4. Feeling tired or having little energy: not at all 5. Poor appetite or overeating: not at all 6. Feeling bad about yourself - or that you are a failure or have let yourself or your family down: not at all 7. Trouble concentrating on things, such as reading the newspaper or watching television: not at all 8. Moving or speaking so slowly that other people could have noticed. Or the opposite - being so fidgety or restless that you have been moving around a lot more than usual: not at all 9. Thoughts that you would be better off or of hurting yourself in some way: not at all Total score: 0 Depression Screening Interpretation: Negative Depression Screening Done: Yes Source: Developed by Drs. Waldemar Buchanan, Robyn Burr, Jalil Sam and colleagues, with an educational mp from [employer]. Thrive Questionnaire Date Thrive assessed: 03/11/24 I am a: Patient What is your living situation today?: I have a steady place to live Within the past 12 months, did the food you bought not last and you didn't have the money to get more?: Often true Within the past 12 months, did you worry whether your food would run out before you got money to buy more?: Never true Do you have trouble paying for medicines?: No Do you have trouble getting transportation to medical appointments?: No Do you have trouble paying your heating and electricity bill?: No Do you have trouble taking care of your child, family member or friend?: No Do you have trouble with day-to-day activities such as bathing, preparing meals, shopping, managing finances, etc.?: No Are you currently unemployed and looking for a job?: No Are you interested in more education?: No Please select the resources that you would like help with: None Currently or been in a relationship where the following occur: No concerns reported THRIVE Score: 1 AUDIT C Alcohol Use Questionnaire (AUDIT-C) 1. How often do you have a drink containing alcohol?: Never Total Score: 0 DONI-7 AMB Questionnaire DONI-7 Date DONI - 7 assessed: 03/11/24 Feeling nervous, anxious, or on edge: 0 = Not at all Not being able to stop or control worryin = Not at all Worrying too much about different things: 0 = Not at all Trouble relaxin = Not at all Being so restless that it is hard to sit still: 0 = Not at all Becoming easily annoyed or irritable: 0 = Not at all Feeling afraid as if something awful might happen: 0 = Not at all Total DONI-7 score (0-4 normal; 5-9 mild; 10-14 moderate; 15-21 severe): 0 Source: Developed by Drs. Waldemar Buchanan, Robyn Burr, Jalil Sam and colleagues, with an educational mp from [employer]. Review of Systems Const All systems reviewed & are unremarkable except as noted in HPI and below Reports no additional complaints Eyes Reports no additional complaints ENT Reports no additional complaints Card Reports no additional complaints Resp Reports no additional complaints GI Reports no additional complaints Reports no additional complaints Physical exam (Primary Care) Vital Signs: Last Vital Signs Pulse 58 03/11/24 08:28 BP 128/72 03/11/24 08:28 BMI result Body Mass Index 24.5 Tobacco/Smoking Status: Tobacco use Status Tobacco use date assessed 02/19/24 03/11/24 08:33 Patient Tobacco Use Status Never used Tobacco 03/11/24 08:33 e-Cigarette/Vaping Use Never Used 03/11/24 08:33 PHQ-9: PHQ-9 Score PHQ-9: Total score 0 03/11/24 08:33 Depression Screening Interpretation: Negative Thrive Assessment: Date of Thrive Assessment Date Thrive assessed 03/11/24 03/11/24 08:33 Currently or been in a relationship where the following occur: No concerns reported Const General: no acute distress HENMT Head: Yes normal to inspection Ears: hearing grossly normal bilaterally Face and sinus: Yes normal facial exam Neck Neck: Yes supple Resp Effort & Inspection: normal respiratory effort Auscultation: clear to auscultation bilaterally Cardio Rhythm: regular rhythm Heart sounds: S1 normal heart sound present and S2 normal heart sound present GI Inspection: Yes normal to inspection Palpation (GI): Soft to palpation Percussion: Yes normal to percussion Auscultation: normal bowel sounds Assessment and Plan Assessment & Plan (1) Hyponatremia: Comment: [facility] 10/15, 02/2024 after acute diarrhea Code(s): E87.1 - Hypo-osmolality and hyponatremia Plan: monitor BMP (2) Hypertension: Code(s): I10 - Essential (primary) hypertension Plan: Continue lisinopril and half a tablet of 10 mg of amlodipine. Follow-up in 3 months with a fasting labs before (3) Hyperlipidemia: Comment: intolerant to Crestor, pravastatin, simvastatin, controlled on Zetia Code(s): E78.5 - Hyperlipidemia, unspecified Plan: cont Zetia (4) Hypothyroidism: Comment: borderline, Code(s): E03.9 - Hypothyroidism, unspecified Orders: Orders TSH reflex Free T4 3 Months E03.9 - Hypothyroidism, unspecified, E78.5 - Hyperlipidemia, unspecified, I10 - Essential (primary) hypertension Lipid Panel 3 Months E03.9 - Hypothyroidism, unspecified, E78.5 - Hyperlipidemia, unspecified, I10 - Essential (primary) hypertension Comprehensive [place]. Panel Fast 3 Months E03.9 - Hypothyroidism, unspecified, E78.5 - Hyperlipidemia, unspecified, I10 - Essential (primary) hypertension Medications: Refilled omeprazole 40 mg PO DAILY 90 caps 3RF omeprazole 40 mg PO DAILY 90 caps 3RF Coding Level of Care Code Est Pt Level 4 (45446) Diagnoses Hyponatremia E87.1 Hypertension I10 Hyperlipidemia E78.5 Hypothyroidism E03.9
== END 2024-03-11 09:22 | disposition home or self-care (01) ==
PROVIDERS: PCP Internal Medicine; Visit Provider Internal Medicine
DX: E87.1 Hypo-osmolality and hyponatremia (principal); I10 Essential (primary) hypertension; E78.5 Hyperlipidemia, unspecified; E03.9 Hypothyroidism, unspecified
CPT/HCPCS: 99214

== ENCOUNTER 2024-06-14 07:27 | Outpatient (REF) | payer MEDICARE, SELFPAY ==
[2024-06-14 10:55] LABS: Albumin Level 4.2 g/dL (3.5-5.0); Alkaline Phosphatase 156 U/L (39-117); Anion Gap 9 (12-20); Aspartate Amino Transferase 51 U/L (5-31); Bilirubin Total 0.4 mg/dL (0.0-1.0); Blood Urea Nitrogen 15 mg/dL (9-16); Carbon Dioxide 28 mmol/L (22-29); Chloride 104 mmol/L (96-108); Cholesterol 188 mg/dL (<200); Estimated Glomerular Filt Rate > 60; Glucose Fasting 99 mg/dL (60-99); HDL Cholesterol 58 mg/dL (>40); LDL Cholesterol Calculated 108 mg/dL (<100); Sodium 136 mmol/L (135-145); Total Protein 7.7 g/dL (6.5-8.0); Triglycerides 113 mg/dL (<150)
[2024-06-14 11:01] LABS: Alanine Aminotransferase 77 U/L (0-31)
[2024-06-14 11:26] LABS: TSH reflex Free T4 5.34 uIU/mL (0.32-4.0)
== END 2024-06-14 07:28 | disposition home or self-care (01) ==
LOC: HO.HMGCLDS 07:27
PROVIDERS: PCP Internal Medicine; Visit Provider Internal Medicine
DX: E78.5 Hyperlipidemia, unspecified (principal); I10 Essential (primary) hypertension; E03.9 Hypothyroidism, unspecified
CPT/HCPCS: 36415; 80053; 80061; 84439; 84443

== ENCOUNTER 2024-06-17 10:38 | Outpatient (AMB) | payer MEDICARE, SELFPAY ==
--- NOTE | 2024-06-17 10:54 | A.OFFPC_ITS ---
Vital Signs 06/17/24 11:00 Height 5 ft 2 in Weight 140 lb BMI 25.6 BP 134/70 Blood Pressure Location Lt brachial Position Sitting Pulse 74 Pulse Source Pulse Oximeter Pulse Oximetry (%) 100 Oxygen Delivery Method Room Air Intake Visit Reasons: 3 month follow up Intake Note: Pt is here today for 3 months follow up visit on labs. Allergies rosuvastatin [From Crestor] Adverse Reaction (Intermediate, Verified 06/17/24 11:00) Abdominal Pain amlodipine Adverse Reaction (Verified 06/17/24 11:00) face turned red, dizziness headaches Medication List - Last Reconciled 06/17/24 by Jade Reece MD amlodipine 10 mg PO DAILY ezetimibe (Zetia) 10 mg PO DAILY levothyroxine 50 mcg PO DAILY lisinopril 20 mg PO BID omega-3 fatty acids 500 mg PO DAILY omeprazole 40 mg PO DAILY Tobacco use date assessed: 06/17/24 Dental Screening Dental Screen Date: 12/08/23 HPI 3 month follow up HPI Details Pt presents for f/u HTN. hyperlipid, stable on meds. [facility] Medical History Hypothyroidism Calcific tendinitis of right shoulder Anxiety Hyponatremia Annual physical exam Eczema Rosacea Hypertension Dysplastic nevi Breast pain, left Elevated LFTs Hyperlipidemia Lumbar radiculopathy CREST syndrome Osteoporosis Surgical History H/O colonoscopy History of nasal septoplasty Family History Father No problems noted. Mother No problems noted. Daughter No problems noted. Daughter No problems noted. Daughter No problems noted. 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 Cognitive needs: No Hearing needs: No Vision needs: Yes Questionnaire Thrive Questionnaire Date Thrive assessed: 02/19/24 I am a: Patient What is your living situation today?: I have a steady place to live Within the past 12 months, did the food you bought not last and you didn't have the money to get more?: Often true Within the past 12 months, did you worry whether your food would run out before you got money to buy more?: Never true Do you have trouble paying for medicines?: No Do you have trouble getting transportation to medical appointments?: No Do you have trouble paying your heating and electricity bill?: No Do you have trouble taking care of your child, family member or friend?: No Do you have trouble with day-to-day activities such as bathing, preparing meals, shopping, managing finances, etc.?: No Are you currently unemployed and looking for a job?: No Are you interested in more education?: No Please select the resources that you would like help with: None Currently or been in a relationship where the following occur: No concerns reported THRIVE Score: 1 DONI-7 AMB Questionnaire DOIN-7 Date DONI - 7 assessed: 03/11/24 Source: Developed by Drs. Waldemar Buchanan, Robyn Burr, Jalil Sam and colleagues, with an educational mp from [employer]. Review of Systems Const All systems reviewed & are unremarkable except as noted in HPI and below ENT Reports no additional complaints Card Reports no additional complaints GI Reports no additional complaints Reports no additional complaints Physical exam (Primary Care) Vital Signs: Last Vital Signs Pulse 74 06/17/24 11:00 BP 134/70 06/17/24 11:00 Pulse Ox 100 06/17/24 11:00 Oxygen Delivery Method Room Air 06/17/24 11:00 BMI result Body Mass Index 25.6 Tobacco/Smoking Status: Tobacco use Status Tobacco use date assessed 06/17/24 06/17/24 11:02 Patient Tobacco Use Status Never used Tobacco 06/17/24 10:54 e-Cigarette/Vaping Use Never Used 06/17/24 10:54 Thrive Assessment: Date of Thrive Assessment Date Thrive assessed 02/19/24 06/17/24 10:54 Currently or been in a relationship where the following occur: No concerns reported Const General: no acute distress HENMT Head: Yes normal to inspection Throat: Yes posterior oropharynx normal Resp Effort & Inspection: normal respiratory effort Auscultation: clear to auscultation bilaterally Cardio Rhythm: regular rhythm Heart sounds: S1 normal heart sound present and S2 normal heart sound present GI Inspection: Yes normal to inspection Palpation (GI): Soft to palpation Percussion: Yes normal to percussion Coding Level of Care Code Est Pt Level 4 (09133) Complex EM visit Add On G2211 Diagnoses Hyperlipidemia E78.5 Hypertension I10 Hypothyroidism E03.9 Assessment & Plan Assessment & Plan (1) Hyperlipidemia: Comment: intolerant to Crestor, pravastatin, simvastatin, controlled on Zetia Code(s): E78.5 - Hyperlipidemia, unspecified Category: Medical Plan: Continue Zetia (2) Hypertension: Comment: Amlodipine caused leg swelling Code(s): I10 - Essential (primary) hypertension Category: Medical Plan: Continue Lisinopril (3) Hypothyroidism: Code(s): E03.9 - Hypothyroidism, unspecified Category: Medical Plan: Increase levothyroxine to 50 mcg return in 4 months with a fasting labs before Orders: Orders Comprehensive [place]. Panel Fast 4 Months E03.9 - Hypothyroidism, unspecified, E78.5 - Hyperlipidemia, unspecified, I10 - Essential (primary) hypertension Complete Blood Count Auto Diff 4 Months E03.9 - Hypothyroidism, unspecified, E78.5 - Hyperlipidemia, unspecified, I10 - Essential (primary) hypertension Vitamin D 25-OH Total 4 Months E03.9 - Hypothyroidism, unspecified, E78.5 - Hyperlipidemia, unspecified, I10 - Essential (primary) hypertension Lipid Panel 4 Months E03.9 - Hypothyroidism, unspecified, E78.5 - Hyperlipidemia, unspecified, I10 - Essential (primary) hypertension TSH reflex Free T4 4 Months E03.9 - Hypothyroidism, unspecified, E78.5 - Hyperlipidemia, unspecified, I10 - Essential (primary) hypertension Gamma Glutamyl Transpeptidase 4 Months E03.9 - Hypothyroidism, unspecified, E78.5 - Hyperlipidemia, unspecified, I10 - Essential (primary) hypertension Medications: New levothyroxine 50 mcg PO DAILY 90 tabs 3RF Discontinued levothyroxine Discontinued Reason: Doctor's Order 25 mcg PO DAILY 90 tabs 3RF
[2024-06-17 11:00] VITALS: BP 134/70; PULSE 74; O2SAT 100; BMI 25.6
== END 2024-06-17 11:50 | disposition home or self-care (01) ==
PROVIDERS: PCP Internal Medicine; Visit Provider Internal Medicine
DX: E78.5 Hyperlipidemia, unspecified (principal); I10 Essential (primary) hypertension; E03.9 Hypothyroidism, unspecified

== ENCOUNTER → 2024-06-17 10:38 | Outpatient (BNVA) | payer MEDICARE, SELFPAY | PROVIDERS: PCP Internal Medicine; Visit Provider Internal Medicine | DX: E78.5 Hyperlipidemia, unspecified (principal); E03.9 Hypothyroidism, unspecified; I10 Essential (primary) hypertension | CPT/HCPCS: 99212 ==

== ENCOUNTER 2024-10-03 08:08 | Outpatient (REF) | payer MEDICARE, SELFPAY ==
--- OUTSIDE RECORDS SUMMARY | 2024-10-03 08:15 | XMS_ITS | Encounter Summary ---
Author Organization [facility] Address [address] [place] [address] Phone Care Team Providers Care Administrative Program Specialist Name Role Phone Jade Reece MD Primary Care Provider [phone] Encounter Details Date Type Department Care Team (Late st Contact Info) Description 10/21/2021 Documentation Only [facility], [address] [place] [address] Betty Judge [address] [place] [address] Social History Tobacco Use Types Packs/Day Years Used Date Smoking Tobacco: Never Assessed Comments Unknown Sex and Gender Information Value Date Recorded Sex Assigned at Not on file Legal Sex Female 11:50 AM EDT Gender Identity Not on file Sexual Orientation Not on file documented as of this encounter Plan of Treatment Not on file documented as of this encounter Visit Diagnoses Not on filedocumented in this encounter Care Teams Administrative Program Specialist Relationship Specialty Start Date End Date Jade Reece MD 1963 [facility] [place] [place] [address] PCP - General Internal Medicine 10/21/21 documented as of this encounter
--- OUTSIDE RECORDS SUMMARY | 2024-10-03 08:15 | XMS_ITS | Clinical Summary ---
Author Organization [facility] [place], Address [address] [place] [address] [place] [address] Phone Care Team Providers Care Field Underwriter Name Role Phone Jade Reece MD Primary Care Provider [phone] Allergies No known active allergies Medications rosuvastatin (CRESTOR) 5 MG tablet Take 5 mg by mouth 1 (one) time each day Active labetalol (NORMODYNE) 100 MG tabletIndicatio ns:Hypertension Take 1 tablet (100 mg total) by mouth in the morning and 1 tablet (100 mg total) in the evening. 60 tablet 11 10/21/2021 Active amLODIPine (NORVASC) 5 MG tabletIndicatio ns:Hypertension Take 1 tablet (5 mg total) by mouth 1 (one) time each day 30 tablet 11 10/21/2021 Active lisinopril 20 MG tabletIndicatio ns:Hypertension Take 1 tablet (20 mg total) by mouth 1 (one) time each day 30 tablet 3 10/21/2021 Active Active Problems Problem Noted Date Diagnosed Date Hyponatremia 10/21/2021 Hypertension 10/21/2021 Hyperlipidemia 10/21/2021 Chronic kidney disease, stage 2 (mild) 2 Social History Tobacco Use Types Packs/Day Years Used Date Smoking Tobacco: Never Assessed Comments Unknown Sex and Gender Information Value Date Recorded Sex Assigned at Not on file Legal Sex Female 11:50 AM EDT Gender Identity Not on file Sexual Orientation Not on file Plan of Treatment Health Maintenance Due Date Last Done Comments Pneumococcal Vaccine: 65+ Ye ars (1 of 2 - PCV) 1956 Influenza Vaccine (#1) 2024 Hepatitis B Vaccine Aged Out No longe r eligible based on patient's age to complete this topic Insurance [employer] MEDICARE Care Teams Field Underwriter Relationship Specialty Start Date End Date Jade Reece MD 1963 [facility] [place] [id number] PCP - General Internal Medicine 10/21/21
--- OUTSIDE RECORDS SUMMARY | 2024-10-03 08:15 | XMS_ITS | Encounter Summary ---
Author Organization [facility] Address [address] [place] [address] Phone Care Team Providers Care Exterminator Termite Name Role Phone Jade Reece MD Primary Care Provider [phone] Encounter Details Date Type Department Care Team (Late st Contact Info) Description 12/31/2021 Documentation Only [facility] [place], [address] [place] [address] Betty Judge [address] [place] [address] Social History Tobacco Use Types Packs/Day Years Used Date Smoking Tobacco: Never Assessed Comments Unknown Sex and Gender Information Value Date Recorded Sex Assigned at Not on file Legal Sex Female 11:50 AM EDT Gender Identity Not on file Sexual Orientation Not on file documented as of this encounter Progress Notes * Kt Gregory MD - 12/31/2021 9:20 AM EDT Reviewed scanned document. No additional follow-up needed. Will address as needed in following visit. 12/31/2021 12/31/2021 Kt Gregory MD documented in this encounter Plan of Treatment Not on file documented as of this encounter Visit Diagnoses Not on filedocumented in this encounter Care Teams Exterminator Termite Relationship Specialty Start Date End Date Jade Reece MD 1963 [facility] [place] [address] PCP - General Internal Medicine 10/21/21 documented as of this encounter
[2024-10-03 10:21] LABS: MANUAL DIFF FLAG NO
[2024-10-03 10:23] LABS: Basophils Absolute Auto 0.1 X10*3/uL (0.0-0.2); Basophils Percent Auto 0.9 % (0-2); Eosinophils Absolute Auto 0.2 X10*3/uL (0.0-0.4); Eosinophils Percent Auto 3.5 % (0-4); Hemoglobin 12.7 g/dl (12.0-16.0); Imm Gran Abs Auto 0.02 X10*3/uL (0.00-0.03); Imm Gran Pct Auto 0.3 % (0.0-0.4); Lymphocytes Absolute Auto 1.8 X10*3/uL (1.2-4.9); Lymphocytes Percent Auto 26.8 % (20-40); Mean Corpuscular HGB Conc 31.8 g/dl (31.0-35.0); Mean Corpuscular Hemoglobin 29.6 pg (27.0-33.0); Mean Corpuscular Volume 93.2 fL (80.0-98.0); Mean Platelet Volume 11.8 fL (9.4-12.3); Monocytes Absolute Auto 0.7 X10*3/uL (0.1-1.2); Monocytes Percent Auto 10.1 % (2-11); Neutrophils Absolute Auto 3.9 x10*3/uL (2.0-8.3); Neutrophils Percent Auto 58.4 % (45-73); Platelet Count 205 X10*3/uL (160-400); Red Blood Count 4.29 X10*6/uL (4.20-5.50); White Blood Count 6.6 X10*3/uL (4.8-10.8)
[2024-10-03 10:52] LABS: Alanine Aminotransferase 39 U/L (0-31); Albumin Level 4.2 g/dL (3.5-5.0); Alkaline Phosphatase 135 U/L (39-117); Anion Gap 10 (12-20); Aspartate Amino Transferase 33 U/L (5-31); Bilirubin Total 0.5 mg/dL (0.0-1.0); Blood Urea Nitrogen 21 mg/dL (9-16); Calcium 9.6 mg/dL (8.4-10.2); Carbon Dioxide 26 mmol/L (22-29); Chloride 106 mmol/L (96-108); Cholesterol 182 mg/dL (<200); Estimated Glomerular Filt Rate > 60; Gamma Glutamyl Transpeptidase 212 U/L (7-33); Glucose Fasting 100 mg/dL (60-99); HDL Cholesterol 60 mg/dL (>40); LDL Cholesterol Calculated 104 mg/dL (<100); Potassium 4.8 mmol/L (3.3-5.1); Sodium 137 mmol/L (135-145); Total Protein 8.1 g/dL (6.5-8.0); Triglycerides 92 mg/dL (<150)
[2024-10-03 11:07] LABS: TSH reflex Free T4 3.31 uIU/mL (0.32-4.0); Vitamin D 25-OH Total 45.9 ng/mL (>30)
== END 2024-10-03 08:09 | disposition home or self-care (01) ==
LOC: HO.HMGCLDS 08:08
PROVIDERS: PCP Internal Medicine; Visit Provider Internal Medicine
DX: E03.9 Hypothyroidism, unspecified (principal); I10 Essential (primary) hypertension; E78.5 Hyperlipidemia, unspecified
CPT/HCPCS: 36415; 80053; 80061; 82306; 82977; 84443; 85025

== ENCOUNTER 2024-10-06 08:51 | Outpatient (AMB) | payer MEDICARE, SELFPAY ==
--- NOTE | 2024-10-06 09:00 | A.OFFVIS_ITS ---
Intake Vital Signs 10/06/24 09:02 Height 5 ft 2 in Weight 140 lb BMI 25.6 BP 120/74 Blood Pressure Location Lt brachial Position Sitting Respiration 18 Pulse 82 Pulse Source Pulse Oximeter Temp 98.3 F Temp Source Oral Intake Visit Reasons: SWV G0439 Allergies rosuvastatin [From Crestor] Adverse Reaction (Intermediate, Verified 10/06/24 09:04) Abdominal Pain amlodipine Adverse Reaction (Verified 10/06/24 09:04) face turned red, dizziness headaches HPI SWV G0439 HPI Details Initiated the conversation about Advanced Directives. Advanced Directives help? patients prepare for current and future decisions about their medical treatment? and place of care. Discussed with patient that it is a process where a patients? current condition and prognosis are reviewed, their wishes for information? regarding their illness are elicited, and likely medical dilemmas are presented? and options discussed. The form can be amended as needed, reviewed yearly and? make changes as needed IPPE/AWV ? year old presents? for her ? Annual? Wellness Visit, initial visit.? Medical / Social History Reviewed? Past Medical History ?Yes? . ? [facility]? of Care / Care Team list updated ?Yes . ? Surgical/Hospitalization? History ?Yes . ? Current Medications? (including OTC and supplements) ?Yes . ? Family History ?Yes? . ? Tobacco? Control form ?Yes . ? AUDIT-C (Alcohol use) form? ?Yes . ? Illicit drug use in Social? History ?Yes . ? Current diagnosis of? depression? ?No ? Appropriate PHQ2/PHQ9? completed ?Yes . ? Data entered by ?Medical? Support Services Manager and reviewed by provider ? Fall Risk ? Fall? History? Have you had any falls with? injury in the past year? ?No . ? Have you had two or more? falls in the past year? ?No . ? Fall Risk Assessment: ?No? falls in the past year . ? HRA filled out by? the patient, reviewed by Provider and scanned. ? IPPE/AWV ? Balance? Romberg? ?Yes . ? Tandem? walk ?Yes . ? Walk and? Turn ?Yes . ? Rise from? sit to stand ?Yes . ?Vision? Corrective? lens ?Yes ? Vision? screen ? Up-to-date, has an appointment [] for vision? screening and glaucoma screening ?Hearing? Whisper? test ?pass .? Initiated the conversation about Advanced Directives. Advanced Directives help? patients prepare for current and future decisions about their medical treatment? and place of care. Discussed with patient that it is a process where a patients? current condition and prognosis are reviewed, their wishes for information? regarding their illness are elicited, and likely medical dilemmas are presented? and options discussed. The form can be amended as needed, reviewed yearly and? make changes as needed Written? Plan?Completed. See Patient? Documents. [facility] Medical History Hypothyroidism Calcific tendinitis of right shoulder Anxiety Hyponatremia Annual physical exam Eczema Rosacea Hypertension Dysplastic nevi Breast pain, left Elevated LFTs Hyperlipidemia Lumbar radiculopathy CREST syndrome Osteoporosis Surgical History H/O colonoscopy History of nasal septoplasty Family History Father No problems noted. Mother No problems noted. Daughter No problems noted. Daughter No problems noted. Daughter No problems noted. 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 Cognitive needs: No Hearing needs: No Vision needs: Yes Questionnaire Medicare Wellness Checkup [age] What gender do you identify with?: female During the past 4 weeks, how much have you been bothered by emotional problems such as feeling anxious, depressed, irritable, sad or downhearted, and blue?: not at all During the past 4 weeks, has your physical & emotional health limited your social activities with family, friends, neighbors, or groups?: not at all During the past 4 weeks, how much bodily pain have you generally had?: no pain During the past 4 weeks, was someone available to help you if you needed & wanted help?: no, not at all During the past 4 weeks, what was the hardest physical activity you could do for at least 2 minutes?: very light Can you get to places out of walking distance without help? (For eg., can you travel alone on buses, taxis or drive your car?): Yes Can you go shopping for groceries or clothes without someone's help?: Yes Can you prepare your own meals?: Yes Can you do your housework without help?: Yes Because of any health problems, do you need the help of another person with your personal care needs such as eating, bathing, dressing or getting around the house?: No Can you handle your own money without help?: Yes During the past 4 weeks, how would you rate your health in general?: good During the past 4 weeks how have things been going for you?: good & bad parts about equal Are you having difficulties driving your car?: no Do you always fasten your seat belt when you are in a car?: yes, usually During past 4 weeks, have you been bothered by the following: never: Falling or dizzy when standing up, Sexual problems?, Trouble eating well?, Teeth or denture problems? and Problems using the telephone? and sometimes: Tiredness or fatigue? Have you fallen 2 or more times in the past year?: No Are you afraid of falling?: No Are you a smoker?: no During the past 4 weeks, how many drinks of wine, beer, or other alcoholic beverages did you have?: no alcohol at all Do you exercise for about 20 minutes 3 or more times a week?: yes, some of the time Have you been given information to help with the following?: no: Hazards in your house that might hurt you? and no: Keeping track of your medications? How often do you have trouble taking medicines the way you have been told to take them?: I always take medicine as prescribed How confident are you that you can control & manage most of your health problems?: very confident What is your race?: White Mini Mental State Exam (MMSE) Orientation What is the (year) (season) (date) (day) (month)?: year, season, date, day and month Where are we (state) (county) (town or city) (hospital) (floor)?: state, county, town or city, hospital/clinic and floor Registration Name of 3 unrelated objects clearly and slowly, then ask patient to repeat all 3 of them. (1st repeat determines score. Make sure they can repeat all three): object 1, object 2 and object 3 Attention & Calculation (CHOOSE ONE) Spell WORLD backwards (DLROW): 5 letters Recall Ask patient to repeat the 3 items from question #3.: object 1, object 2 and object 3 Language Show patient a wristwatch & ask what it is. Repeat for pencil.: watch and pencil Ask the patient to repeat the phrase 'No ifs, ands, or buts' after you.: correct Ask the patient to 'take a piece of paper with their right hand' 'fold paper in half' 'place paper on floor': take paper in right hand, fold paper in half and p lace paper on floor Print the sentence 'CLOSE YOUR EYES' on a piece. If patient actually closes eyes then score.: followed written direction Give patient a blank piece of paper & ask to write a sentence. Score if it contains a noun & verb.: sentence contains subject and verb Score Score: 29 Activity of Daily Living Bathing - sponge bath, tub bath or shower: receives no assistance (gets in/out by self, if usual bathing means Dressing - getting clothes from closets & drawers, including inner/outer garments & fasteners.: gets clothes & gets completely dressed without help Toileting - going to the 'toilet room' for urine/bowel elimination & cleaning self/arranging clothes: goes to toilet room, cleans self, arranges clothes without help Transfer: moves in & out of bed and chair without help (may use support object) Continence: controls urination/bowel movements completely by self Feeding: feeds self without help Total Score: 0 Information obtained from: patient Using telephone: independent Traveling: independent Shopping: independent Preparing meals: independent Housework: independent Taking medicine: independent Managing money: independent PHQ-9 Over the last 2 weeks, how often have you been bothered by any of the following problems? 1. Little interest or pleasure in doing things: not at all 2. Feeling down, depressed, or hopeless: not at all 3. Trouble falling or staying asleep, or sleeping too much: not at all 4. Feeling tired or having little energy: not at all 5. Poor appetite or overeating: not at all 6. Feeling bad about yourself - or that you are a failure or have let yourself or your family down: not at all 7. Trouble concentrating on things, such as reading the newspaper or watching television: not at all 8. Moving or speaking so slowly that other people could have noticed. Or the opposite - being so fidgety or restless that you have been moving around a lot more than usual: not at all 9. Thoughts that you would be better off or of hurting yourself in some way: not at all Total score: 0 Depression Screening Interpretation: Negative Depression Screening Done: Yes 68381 - PHQ-9 Billing: Yes Source: Developed by Drs. Waldemar Buchanan, Robyn Burr, Jalil Sam and colleagues, with an educational mp from [employer]. Review of Systems Const All systems reviewed & are unremarkable except as noted in HPI and below Eyes Reports no additional complaints ENT Reports no additional complaints Card Reports no additional complaints Resp Reports no additional complaints GI Reports no additional complaints Reports no additional complaints Physical Exam Vital Signs: Last Vital Signs Temp 98.3 F 10/06/24 09:02 Pulse 82 10/06/24 09:02 Resp 18 10/06/24 09:02 BP 120/74 10/06/24 09:02 BMI result Body Mass Index 25.6 Const General: no acute distress HEENT Head: Yes normal to inspection Ears: hearing grossly normal bilaterally Neck Neck: Yes no lymphadenopathy and Yes supple Resp Effort & Inspection: normal respiratory effort Auscultation: clear to auscultation bilaterally Cardio Rhythm: regular rhythm Heart sounds: S1 normal heart sound present and S2 normal heart sound present GI Inspection: Yes normal to inspection Palpation (GI): Soft to palpation Percussion: Yes normal to percussion Auscultation: normal bowel sounds Extrem General: Yes no clubbing, cyanosis or edema Assessment & Plan Assessment & Plan (1) Elevated LFTs: Comment: Workup negative 2017 hepatitis-B C, ceruloplasmin MARIEL negative, follow-up with GI Dr Nuñez, CT scan abd negative 2014, US stable hepatic cyst 03/17 Code(s): R79.89 - Other specified abnormal findings of blood chemistry Plan: CHECK AUTOIMMUNE HEPATITIS AND HEPATITIS-B AND C, obtain with the ultrasound (2) Hyperlipidemia: Comment: intolerant to Crestor, pravastatin, simvastatin, controlled on Zetia Code(s): E78.5 - Hyperlipidemia, unspecified Plan: Continue Zetia (3) Hypertension: Comment: Amlodipine caused leg swelling Code(s): I10 - Essential (primary) hypertension Plan: Continue current medications (4) Hypothyroidism: Code(s): E03.9 - Hypothyroidism, unspecified Plan: Continue levothyroxine (5) Tinnitus: Code(s): H93.19 - Tinnitus, unspecified ear Plan: For chronic tinnitus patient will be referred for hearing test (6) Annual physical exam: Code(s): Z00.00 - Encounter for general adult medical examination without abnormal findings Plan: Well-balanced diet regular physical activity discussed with the pt. follow-up in 6 months Orders: Orders Mitochondrial Antibody Today R7. - Other specified abnormal findings of blood chemistry Alpha Fetoprotein Today R79.89 - Other specified abnormal findings of blood chemistry Liver Kidney Microsomal Ab Today R79. - Other specified abnormal findings of blood chemistry US abdomen limited Today R79. - Other specified abnormal findings of blood chemistry Immunoglobulins,IgG IgA IgM Today R79.89 - Other specified abnormal findings of blood chemistry Comprehensive Golden. Panel Fast 6 Months E03.9 - Hypothyroidism, unspecified, R79. - Other specified abnormal findings of blood chemistry, Z00.00 - En counter for general adult medical examination without abnormal findings Lipid Panel 6 Months E03.9 - Hypothyroidism, unspecified, R79.89 - Other specified abnormal findings of blood chemistry, Z00.00 - Encounter for general adult medical examination without abnormal findings Complete Blood Count Auto Diff 6 Months E03.9 - Hypothyroidism, unspecified, R79.89 - Other specified abnormal findings of blood chemistry, Z00.00 - Encounter for general adult medical examination without abnormal findings IRON PROFILE Today R79. - Other specified abnormal findings of blood chemistry MARIEL Reflex Titer and Pattern Today R79. - Other specified abnormal findings of blood chemistry Hepatitis B,C Profile Today R79. - Other specified abnormal findings of blood chemistry Liver Fibrosis Pnl Today R79. - Other specified abnormal findings of blood chemistry TSH reflex Free T4 6 Months E03.9 - Hypothyroidism, unspecified, R79. - Other specified abnormal findings of blood chemistry, Z00.00 - Encounter for general adult medical examination without abnormal findings Ceruloplasmin Today R79. - Other specified abnormal findings of blood chemistry Referrals 2 Speech and Hearing Referral H93.19 - Tinnitus, unspecified ear, R7. - Other specified abnormal findings of blood chemistry Quality Reporting (2020) Depression/Bipolar (159/160/161/177) PHQ-9: Total score: 0 Coding Level of Care Code Medicare Subsequent (G0439) Diagnoses Elevated LFTs R79.89 Hyperlipidemia E78.5 Hypertension I10 Hypothyroidism E03.9 Tinnitus H93.19 Annual physical exam Z00.00 CPT Codes Advance Care Planning - Advance Care Planning discussion: On file, no changes ([id number]) Advance Care Planning - Time spent: 1-15 minutes, on File ([id number]) Additional Codes PHQ-9 - 16110 - PHQ-9 Billing: Yes ([id number]) Advance Care Planning Advance Care Planning discussion: On file, no changes Forms completed: Health Care Proxy Time spent: 1-15 minutes, on File Did not discuss due to Cultural/Spiritual beliefs: Yes
[2024-10-06 09:02] VITALS: BP 120/74; PULSE 82; RESP 18; TEMP 36.8; BMI 25.6
--- OUTSIDE RECORDS SUMMARY | 2024-10-06 09:46 | XMS_ITS | Clinical Summary ---
Author Organization [facility], Address [address] [place] [address] [place] [address] Phone Care Team Providers Care Java Lead Architect Name Role Phone Jade Reece MD Primary Care Provider [phone] Allergies No known active allergies Medications rosuvastatin [...] this topic Insurance UHC MEDICARE Care Teams Java Lead Architect Relationship Specialty Start Date End Date Jade Reece MD 1963 [facility] [place] [id number] PCP - General Internal Medicine 10/21/21
--- OUTSIDE RECORDS SUMMARY | 2024-10-06 09:46 | XMS_ITS | Encounter Summary ---
Author Organization [facility] Address [address] [place] [address] Phone Care Team Providers Care Consulting Technical Director Name Role Phone Jade Reece MD Primary Care Provider [phone] Encounter Details Date Type Department Care Team (Late st Contact Info) Description 10/21/2021 Documentation Only [facility] [place], [address] [place] [address] Betty Judge [address] [place] [address] Social History Tobacco Use Types [...] on filedocumented in this encounter Care Teams Consulting Technical Director Relationship Specialty Start Date End Date Jade Reece MD [address] [facility] [place] [address] PCP - General Internal Medicine 10/21/21 documented as of this encounter
--- OUTSIDE RECORDS SUMMARY | 2024-10-06 09:46 | XMS_ITS | Encounter Summary ---
Author Organization [facility] Address [address] [place] [address] Phone Care Team Providers Care Captain Waiter Name Role Phone Jade Reece MD Primary Care Provider [phone] Encounter Details Date Type Department Care Team (Late st Contact Info) Description 12/31/2021 Documentation Only [facility] [place], [address] [place] [address] Betty Judge [address] [place] [address] Social History Tobacco Use Types [...] on filedocumented in this encounter Care Teams Captain Waiter Relationship Specialty Start Date End Date Jade Reece MD 1963 [facility] [place] [id number] PCP - General Internal Medicine 10/21/21 documented as of this encounter
== END 2024-10-06 09:52 | disposition home or self-care (01) ==
LOC: HO.HMCC 08:51
PROVIDERS: PCP Internal Medicine; Visit Provider Internal Medicine
DX: Z00.00 Encounter for general adult medical examination without abnormal findings (principal); R79.89 Other specified abnormal findings of blood chemistry; E78.5 Hyperlipidemia, unspecified; I10 Essential (primary) hypertension; E03.9 Hypothyroidism, unspecified; H93.13 Tinnitus, bilateral

== ENCOUNTER 2024-10-06 08:51 | Outpatient (REF) | payer MEDICARE, SELFPAY ==
--- OUTSIDE RECORDS SUMMARY | 2024-10-06 12:06 | XMS_ITS | Clinical Summary ---
Author Organization [facility] [place], Address [address] [place] [address] [place] [address] Phone Care Team Providers Care Card Grinder Name Role Phone Jade Reece MD Primary Care Provider [phone] Allergies No known active allergies Medications rosuvastatin [...] this topic Insurance UHC MEDICARE Care Teams Card Grinder Relationship Specialty Start Date End Date Jade Reece MD 1963 [facility] [place] [id number] PCP - General Internal Medicine 10/21/21
--- OUTSIDE RECORDS SUMMARY | 2024-10-06 12:06 | XMS_ITS | Encounter Summary ---
Author Organization [facility] Address [address] [place] [address] Phone Care Team Providers Care City Auditor Name Role Phone Jade Reece MD Primary Care Provider [phone] Encounter Details Date Type Department Care Team (Late st Contact Info) Description 12/31/2021 Documentation Only [facility] [place], [address] [place] [address] Betty Judge [address] [place] [address] Social History Tobacco Use Types [...] on filedocumented in this encounter Care Teams City Auditor Relationship Specialty Start Date End Date Jade Reece MD 1963 [facility] [place] [address] PCP - General Internal Medicine 10/21/21 documented as of this encounter
--- OUTSIDE RECORDS SUMMARY | 2024-10-06 12:06 | XMS_ITS | Encounter Summary ---
Author Organization [facility] Address [address] [place] [address] Phone Care Team Providers Care Manager Mail Name Role Phone Jade Reece MD Primary Care Provider [phone] Encounter Details Date Type Department Care Team (Late st Contact Info) Description 10/21/2021 Documentation Only [facility] [place], [address] [place] [address] Betty Judge [address] [place] [address] Social History Tobacco Use Types [...] on filedocumented in this encounter Care Teams Manager Mail Relationship Specialty Start Date End Date Jade Reece MD 1963 [facility] [place] [address] PCP - General Internal Medicine 10/21/21 documented as of this encounter
[2024-10-06 14:04] LABS: Iron 69 mcg/dL (30-160); Percent Iron Saturation 28 % (15-50); Total Iron Binding Capacity 243 mcg/dL (228-428); Unsaturated Iron Binding 174 ug/dL
[2024-10-07 04:18] LABS: HBS Num1 0.79 mIU/mL (0-7.99); HBc Num1 0.09 S/CO (0.00-0.79); HBsAGNum1 0.27 S/CO (0.00-0.99); Hepatitis B Core Antibody Nonreactive (Nonreactive); Hepatitis B Surface Antigen Negative (Negative); ~HepC Num1 0.48 S/CO (0.00-0.79); ~Hepatitis B Surface Antibody NONREACTIVE (Nonreactive); ~Hepatitis C Antibody Nonreactive (Nonreactive)
[2024-10-07 08:09] LABS: Ceruloplasmin 28 mg/dL (14-48)
[2024-10-07 13:44] LABS: Alpha Fetoprotein 5.5 ng/mL
[2024-10-07 13:53] LABS: IgA 310 mg/dL (70-320); IgG 1604 mg/dL (600-1540); IgM 179 mg/dL (50-300)
[2024-10-10 15:18] LABS: Mitochondrial Antibodies NEGATIVE (NEGATIVE)
[2024-10-11 12:13] LABS: Liver Kidney Microsomal Ab <=20.0 U (<=20.0)
[2024-10-12 15:13] LABS: ANA Pattern 2 Nuclear, Homogeneous; Anti Nuclear Antibody Pattern Nuclear, Centromere; Anti Nuclear Antibody Screen POSITIVE (NEGATIVE)
[2024-10-13 15:32] LABS: FIB-ALT 23 U/L (6-29); FIB-Alpha-2-Macroglobulin 216 mg/dL (106-279); FIB-Apolipoprotein A1 178 mg/dL (101-198); FIB-GGT 155 U/L (3-65); FIB-Haptoglobin 155 mg/dL (43-212); FIB-Total Bilirubin 0.3 mg/dL (0.2-1.2); Liver Fibrosis Score 0.31; Liver Fibrosis Stage F1; Nec Inflam Act Grade A0
== END 2024-10-06 08:52 | disposition home or self-care (01) ==
LOC: HO.HMGCLDS 08:51
PROVIDERS: PCP Internal Medicine; Visit Provider Internal Medicine
DX: Z00.00 Encounter for general adult medical examination without abnormal findings (principal); R79.89 Other specified abnormal findings of blood chemistry; E78.5 Hyperlipidemia, unspecified; I10 Essential (primary) hypertension; E03.9 Hypothyroidism, unspecified; H93.19 Tinnitus, unspecified ear; Z79.899 Other long term (current) drug therapy
CPT/HCPCS: 36415; 81596; 82105; 82390; 82784; 83540; 86038; 86039; 86376; 86381; 86704; 86706; 86803; 87340; 96127

== ENCOUNTER 2024-10-21 07:52 | Outpatient (REF) | payer MEDICARE, SELFPAY ==
--- NOTE | ~2024-10-21 | US_ITS ---
EXAMINATION: US ABDOMEN LIMITED HISTORY: R79.89 - Other specified abnormal findings of blood chemistry TECHNIQUE: Real-time grayscale ultrasound imaging of the right upper quadrant was performed and images were reviewed. COMPARISON: Comparison is made with the prior examination dated 02/27/2022. FINDINGS: Liver: The right lobe of the liver measures 14.3 cm in size. The left lobe of the liver measures 8.5 cm in size. The liver demonstrates normal homogeneous echotexture. Again seen is a 1.3 cm cyst in the right lobe. No intrahepatic biliary ductal dilatation is identified. There is normal hepatopedal flow in the portal vein. Gallbladder and biliary tree: There is cholelithiasis. There is no wall thickening or pericholecystic fluid. There is no sonographic Griffin sign. The common bile duct is normal in caliber measuring 4 mm. Right Kidney: The right kidney measures 11.1 cm in length. The right kidney is unremarkable, without evidence of masses, hydronephrosis, or calculi. Pancreas: The pancreatic head, neck, and body are unremarkable. The pancreatic tail is obscured by bowel gas. Abdominal aorta and inferior vena cava: The visualized portions of the abdominal aorta and inferior vena cava are normal in caliber. There is no free fluid in the right upper quadrant. US/US abdomen limited IMPRESSION: 1.3 cm hepatic cyst. Cholelithiasis without evidence of acute cholecystitis. Electronically signed by: Waldemar Rivers MD 10/21/2024 08:43 AM EDT
== END 2024-10-21 07:53 | disposition home or self-care (01) ==
LOC: HO.HMGCX 07:52
PROVIDERS: PCP Internal Medicine; Visit Provider Internal Medicine
DX: R79.89 Other specified abnormal findings of blood chemistry (principal)
CPT/HCPCS: 76705

== ENCOUNTER → 2024-10-21 08:01 | Outpatient (BNV) | payer MEDICARE, SELFPAY | PROVIDERS: PCP Internal Medicine; Visit Provider Radiology Diagnostic Radiology | DX: R79.89 Other specified abnormal findings of blood chemistry (principal) | CPT/HCPCS: 76705 ==

== ENCOUNTER 2024-10-28 09:20 | Outpatient (REF) | payer MEDICARE, SELFPAY ==
--- OUTSIDE RECORDS SUMMARY | 2024-10-28 10:09 | XMS_ITS | Encounter Summary ---
Author Organization [facility] Address [address] [place] [address] Phone Care Team Providers Care Interlocker Maintainer Name Role Phone Jade Reece MD Primary Care Provider [phone] Encounter Details Date Type Department Care Team (Late st Contact Info) Description 10/21/2021 Documentation Only [facility] [place], [address] [place] [address] Betty Judge [address] [place] [address] Social History Tobacco Use Types [...] on filedocumented in this encounter Care Teams Interlocker Maintainer Relationship Specialty Start Date End Date Jade Reece MD 1963 [facility] [place] [place] [address] PCP - General Internal Medicine 10/21/21 documented as of this encounter
--- OUTSIDE RECORDS SUMMARY | 2024-10-28 10:09 | XMS_ITS | Clinical Summary ---
Author Organization [facility] [address] [place] [address] [place] [address] Phone Care Team Providers Care Video Engineer Name Role Phone Jade Reece MD Primary Care Provider [phone] Encounters Date Type Department Care Team Description 10/20/2024 1:42 PM EDT - 10/20/2024 11:59 PM EDT Hospital Encounter Radiology Department [address] [phone] Encounter for screening mammogram for breast cancer Discharge Disposition: Home or Self Care from Last 3 Months Surgical History Surgery Date Site/Laterality Comments COLONOSCOPY 12/27/2007 PROCEDURE: [place] COLONOSCOPY FLX DX W/COLLJ SPEC WHEN PFRMD; COMMENT: Negative COLONOSCOPY 12/30/2017 PROCEDURE: HISTORICAL COLONOSCOPY; COMMENT: tubular adenoma Medical History Medical History Date Comments Special screening for malign ant neoplasms, colon 12/27/2007 DX:Special screening for mal ignant neoplasms, colon History of colon polyps 12/31/2017 DX:Histo ry of colon polyps Family History Medical History Relation Name Comments Breast cancer Aunt pat paternal Colon cancer Neg Hx Ovarian cancer Neg Hx Relation Name Status Comments Aunt pat Social History Tobacco Use Types Packs/Day Years Used Date Smoking Tobacco: Never Smokeless Tobacco: Never Alcohol Use Standard Drinks/Week Comments Yes 0 (1 standard drink = 0.6 oz pur e alcohol) Comments No Sex and Gender Information Value Date Recorded Sex Assigned at Female 07/08/2024 8:49 AM EST Legal Sex Female 1:28 PM EST Gender Identity Female 07/08/2024 8:49 AM EST Sexual Orientation Choose not to disclose 2023 8:49 AM EST Obstetrics History Para Term AB IAB SAB Ectopic Multiple Livin g Live Births 3 3 3 3 Date Outcome GA Total Labor Labor/2nd/3rd Weight Sex Type Anes PTL Elida A1 A5 Name Clin Term Term Term Plan of Treatment Health Maintenance Due Date Last Done Comments DTaP,Tdap,and Td Vaccines (1 - Tdap) 1967 Hepatitis A Vaccines (1 of 2 - Risk 2-dose series) 1967 Pneumococcal Vaccine: 50+ Years (1 of 1 - PCV) 1998 Zoster Vaccines (1 of 2) 1998 Hepatitis B Vaccines (1 of 3 - Risk 3-dose series) 2008 Cholesterol Screening (Lipid Panel) 07/05/2022 Colorectal Cancer Screening: Colonoscopy 07/05/2022 Depression Screening 07/05/2022 Falls Risk Assessment 07/05/2022 Hepatitis C Screening 07/05/2022 Osteoporosis Screening (Bone Density Screening) 07/05/2022 Social Influencers of Health Screening 07/05/2022 RSV Immunization Adult Patients (1 - 1-dose 75+ series) 2023 COVID-19 Vaccine ( season) 2024 10/21/2020, 09/30/2020 Hypertension/CHF/CAD Annual BMP Blood Test 10/20/2024 Influenza Vaccine (Season Ended) 2025 Breast Cancer Screening Discontinued 10/21/19, 07/03/2023, 06/27/2022, Additional history exists HIB Vaccines Aged Out No longer eligi ble based on patient's age to complete this topic HPV Vaccines Aged Out No longer eligi ble based on patient's age to complete this topic IPV Vaccines Aged Out No longer eligi ble based on patient's age to complete this topic MMR Vaccines Aged Out No longer eligi ble based on patient's age to complete this topic Meningococcal ACWY Vaccine Aged Out N o longer eligible based on patient's age to complete this topic Meningococcal B Vacine Aged Out No lo nger eligible based on patient's age to complete this topic RSV Immunization Patients Under 20 months Aged Out No longer eligible based on patient's age to complete this topic Varicella Vaccines Aged Out No longer eligible based on patient's age to complete this topic Procedures Procedure Name Priority Date/Time Associated Diagnosis Comments MG MAMMO DIGITAL SCREENING W BRIAN BILAT Routine 10/20/2024 1:50 PM EDT Encounter for screening mammogram for breast cancer from Last 3 Months Results * MG Mammo Digital Screening w Brian bilat (10/20/2024 1:50 PM EDT) Anatomical Region Laterality Modality Breast Bilateral Mammography 10/21/2024 8:49 AM EDT Impressions 10/21/2024 8:51 AM EDT No mammographic evidence for malignancy. BI-RADS CATEGORY: 1 - NEGATIVE RECOMMENDATION: Screening bilateral mammogram is recommended in 1 year. Mammo Location: [facility], [address] [place] [address], [id number], . -------- FINAL REPORT -------- Dictated By: Maliha Toney Dictated Date: 10/21/2024 08:49 ET Assigned Physician: Maliha Toney Reviewed and Electronically Signed By: Maliha Toney Signed Date: 10/21/2024 08:51 ET Workstation ID: [id number] Transcribed By: Self Edit Transcribed Date: 10/21/2024 08:49 ET Narrative 10/21/2024 8:51 AM EDT Bilateral screening mammogram. CLINICAL: 74 years old, Female, routine annual exam. COMPARISON: Prior studies, latest from 07/03/2023. ?? TECHNIQUE: Bilateral MLO and CC views were obtained digitally with 2-D C views and 3-D mammogram (digital breast tomosynthesis). Computer-aided detection was utilized in evaluation of this exam (CAD). FINDINGS: There is no evidence of suspicious mass or architectural distortion. ??No worrisome calcifications are evident. ??There has been no significant change from prior exam(s). ?? BREAST DENSITY: B - There are scattered areas of fibroglandular density. Procedure Note Maliha Toney MD - 10/21/2024 Bilateral screening mammogram. CLINICAL: 74 years old, Female, routine annual exam. COMPARISON: Prior studies, latest from 07/03/2023. TECHNIQUE: Bilateral MLO and CC views were obtained digitally with 2-D Cviews and 3-D mammogram (digital breast tomosynthesis). Computer-aideddetection was utilized in evaluation of this exam (CAD). FINDINGS: There is no evidence of suspicious mass or architectural distortion. Noworrisome calcifications are evident. There has been no significantchange from prior exam(s). BREAST DENSITY: B - There are scattered areas of fibroglandular density. IMPRESSION: No mammographic evidence for malignancy. BI-RADS CATEGORY: 1 - NEGATIVE RECOMMENDATION: Screening bilateral mammogram is recommended in 1 year. Mammo Location: [facility], [address] [place] [address], [id number], . -------- FINAL REPORT -------- Dictated By: Maliha Toney Dictated Date: 10/21/2024 08:49 ET Assigned Physician: Maliha Toney Reviewed and Electronically Signed By: Maliha Toney Signed Date: 10/21/2024 08:51 ET Workstation ID: [id number] Transcribed By: Self Edit Transcribed Date: 10/21/2024 08:49 ET Jade Reece MD IMG BI PROCEDURES Final Result from Last 3 Months Insurance MEDICAID - [place] [facility] [place] [id number] Care Teams Video Engineer Relationship Specialty Start Date End Date Jade Reece MD [address] [place] [address] PCP - General Internal Medicine 07/08/24
--- OUTSIDE RECORDS SUMMARY | 2024-10-28 10:09 | XMS_ITS | Clinical Summary ---
Author Organization [facility], Address [address] [place] [address] [place] [address] Phone Care Team Providers Care Oracle Applications Analyst Name Role Phone Jade Reece MD Primary Care Provider [phone] Allergies No known active allergies Medications rosuvastatin [...] of 2 - PCV) 1954 Influenza Vaccine (Season Ended) 2025 Hepatitis B Vaccine Aged Out No longe r eligible based on patient's age to complete this topic Insurance MEDICAID [place] UHC MEDICARE Care Teams Oracle Applications Analyst Relationship Specialty Start Date End Date Jade Reece MD 1963 [facility] [place] [id number] PCP - General Internal Medicine 10/21/21
--- OUTSIDE RECORDS SUMMARY | 2024-10-28 10:09 | XMS_ITS | Encounter Summary ---
Author Organization [facility] Address [address] [place] [address] Phone Care Team Providers Care Pesticide Applicator Name Role Phone Jade Reece MD Primary Care Provider [phone] Encounter Details Date Type Department Care Team (Late st Contact Info) Description 12/31/2021 Documentation Only [facility], [address] [place] [address] Betty Judge [address] [place] [address] Social History Tobacco Use Types [...] on filedocumented in this encounter Care Teams Pesticide Applicator Relationship Specialty Start Date End Date Jade Reece MD 1963 [facility] [place] [address] PCP - General Internal Medicine 10/21/21 documented as of this encounter
== END 2024-10-28 09:21 | disposition home or self-care (01) ==
LOC: HO.SH 09:20
PROVIDERS: Visit Provider Internal Medicine
DX: Z01.118 Encounter for examination of ears and hearing with other abnormal findings (principal); H93.13 Tinnitus, bilateral
CPT/HCPCS: 92553

== ENCOUNTER 2024-11-17 07:16 | Outpatient (REF) | payer MEDICARE, SELFPAY ==
--- NOTE | ~2024-11-17 | MR_ITS ---
CLINICAL HISTORY: K80.20 - Calculus of gallbladder without cholecystitis without obstruction --- Jose J tional Notes or Special Instructions: Please call pts daughter Bina with appt details at [facility] Cholangiopancreatography without contrast: Comparison: None. Findings: LIVER: The liver right lobe measures 15.6 cm in length A 1.6 cm by 1.7 cm benign cyst with no septations is present in the liver segment 7. BILIARY: The gallbladder size is normal. No pericholecystic inflammatory changes. There is no wall thickening. No biliary dilatation. No biliary duct calculus. The spleen is normal in size PANCREAS: The pancreas is normal in size. The distal pancreatic duct in the head of the pancreas measures 3.0 mm in diameter and gradually tapers into the tail of the pancreas.. PERITONEUM/RETROPERITONEUM: Regional bowel and retroperitoneal structures are unremarkable. Kidneys are normal in size. No hydronephrosis. No ascites. No lymphadenopathy. Impression: Unremarkable gallbladder and biliary drainage. . This document has been electronically signed by: Juancho Parish MD on 11/17/2024 16:00:39
--- OUTSIDE RECORDS SUMMARY | 2024-11-17 07:21 | XMS_ITS | Clinical Summary ---
Author Organization [facility], Address [address] [place] [address] [place] [address] Phone Care Team Providers Care Sap Administrator Name Role Phone Jade Reece MD Primary Care Provider [phone] Allergies No known active allergies Medications rosuvastatin [...] Due Date Last Done Comments Pneumococcal Vaccine: 50+ Ye ars (1 of 2 - PCV) 1967 Influenza Vaccine (Season Ended) 2025 Hepatitis B Vaccine Aged Out No longe r eligible based on patient's age to complete this topic Insurance UHC Medicare Care Teams Sap Administrator Relationship Specialty Start Date End Date Jade Reece MD 1963 [facility] [place] [id number] PCP - General Internal Medicine 10/21/21
--- OUTSIDE RECORDS SUMMARY | 2024-11-17 07:21 | XMS_ITS | Encounter Summary ---
Author Organization [facility] Address [address] [place] [address] Phone Care Team Providers Care Logistic Manager Name Role Phone Jade Reece MD Primary Care Provider [phone] Encounter Details Date Type Department Care Team (Late st Contact Info) Description 10/21/2021 Documentation Only [facility], [address] [place] [address] Betty Judge [address] [place] [address] Social History Tobacco Use Types [...] on filedocumented in this encounter Care Teams Logistic Manager Relationship Specialty Start Date End Date Jade Reece MD 1963 [facility] [place] [address] PCP - General Internal Medicine 10/21/21 documented as of this encounter
--- OUTSIDE RECORDS SUMMARY | 2024-11-17 07:21 | XMS_ITS | Encounter Summary ---
Author Organization [facility] Address [address] [place] [address] Phone Care Team Providers Care Automatic Trimming Sewer Name Role Phone Jade Reece MD Primary Care Provider [phone] Encounter Details Date Type Department Care Team (Late st Contact Info) Description 12/31/2021 Documentation Only [facility], [address] [place] [address] Betty Judge [address] [place] [address] Social History Tobacco Use [...] on filedocumented in this encounter Care Teams Automatic Trimming Sewer Relationship Specialty Start Date End Date Jade Reece MD 1963 [facility] [place] [facility] [place] [address] PCP - General Internal Medicine 10/21/21 documented as of this encounter
--- OUTSIDE RECORDS SUMMARY | 2024-11-17 07:21 | XMS_ITS | Clinical Summary ---
Author Organization [facility] [address] [place] [address] [place] [address] Phone Care Team Providers Care Head Mixer Name Role Phone Jade Reece MD Primary Care Provider Encounters Date Type Department Care Team Description 10/20/2024 1:42 PM EDT - 10/20/2024 11:59 PM EDT Hospital Encounter Radiology Department [address] [phone] Encounter for screening mammogram for breast cancer Discharge Disposition: Home or Self Care from Last 3 Months Surgical History Surgery Date Site/Laterality Comments COLONOSCOPY 12/27/2007 PROCEDURE: MD COLONOSCOPY FLX DX W/COLLJ SPEC WHEN PFRMD; [...] age to complete this topic Meningococcal B Vaccine Aged Out No l onger eligible based on patient's age to complete [...] is recommended in 1 year. Mammo Location: [facility], [address] [place] [address], [id number], . -------- FINAL REPORT -------- Dictated By: Maliha Tnoey Dictated Date: 10/21/2024 08:49 ET Assigned Physician: Maliha Toney Reviewed and Electronically Signed By: Maliha Toney Signed Date: 10/21/2024 08:51 ET Workstation ID: [id number] Transcribed By: Self Edit Transcribed Date: 10/21/2024 [...] is recommended in 1 year. Mammo Location: [facility], [address] [place] [address], [address], . -------- FINAL REPORT -------- Dictated By: Maliha Toney Dictated Date: 10/21/2024 08:49 ET Assigned Physician: Maliha Toney Reviewed and Electronically Signed By: Maliha Toney Signed Date: 10/21/2024 08:51 ET Workstation ID: [id number] Transcribed By: Self Edit Transcribed Date: 10/21/2024 08:49 ET Jade Reece MD IMG BI PROCEDURES Final Result from Last 3 Months Insurance [place] - [place] [facility] [place] [id number] Care Teams Head Mixer Relationship Specialty Start Date End Date Jade Reece MD [address] [place] [address] PCP - General Internal Medicine 07/08/24
== END 2024-11-17 07:17 | disposition home or self-care (01) ==
LOC: HO.MRI 07:16
PROVIDERS: PCP Internal Medicine; Visit Provider Internal Medicine
DX: K80.20 Calculus of gallbladder without cholecystitis without obstruction (principal)
CPT/HCPCS: 74181

== ENCOUNTER → 2024-11-17 07:31 | Outpatient (BNV) | payer MEDICARE, SELFPAY | PROVIDERS: PCP Internal Medicine; Visit Provider Radiology Diagnostic Radiology | DX: K80.20 Calculus of gallbladder without cholecystitis without obstruction (principal) | CPT/HCPCS: 74181 ==

== ENCOUNTER 2025-02-10 08:03 | Outpatient (REF) | payer MEDICARE, OTHER, SELFPAY ==
--- OUTSIDE RECORDS SUMMARY | 2025-02-10 08:06 | XMS_ITS | Encounter Summary ---
Author Organization [facility] Address [address] [place] [address] Phone Care Team Providers Care Stitch Bonder Machine Operator Helper Name Role Phone Jade Reece MD Primary Care Provider [phone] Encounter Details Date Type Department Care Team (Late st Contact Info) Description 12/31/2021 Documentation Only [facility], [address] [place] [address] Betty Judge [address] [place] [address] Social History Tobacco Use Types [...] on filedocumented in this encounter Care Teams Stitch Bonder Machine Operator Helper Relationship Specialty Start Date End Date Jade Reece MD 1963 [facility] [place]note 3[facility] [place] [address] PCP - General Internal Medicine 10/21/21 documented as of this encounter
--- OUTSIDE RECORDS SUMMARY | 2025-02-10 08:06 | XMS_ITS | Patient Health Record ---
Author Organization [facility] Address [address] [place] [address] Care Team Providers Care Parts Driver Name Role Phone Jade Reece MD Primary Care Provider Waldemar Perales [phone] Allergies Allergen (clinical drug ingredient) Drug/Non Drug Allergy documented on EMR Reaction Allergy Type Onset Date Status rosuvastatin Rosuvastatin Unknown Drug Allergy A ctive amlodipine amLODIPine Unknown Drug Allergy Activ e Reason For Referral No Information Medications Medication SIG (Take, Route, Frequency, Duration) Notes Start Date End Date Status Lisinopril 20 MG TAKE ONE TABLET BY M OUTH TWICE DAILY Oral for 90 Days Active Levothyroxine Sodium 25 MCG 1 tablet in the morning on an empty stomach Orally Once a day 02/08/2025 Active Omeprazole 40 MG TAKE ONE CAPSULE HEIDI LY Oral for 90 Days Active Ezetimibe 10 MG TAKE ONE TABLET CARMEN Y Oral for 90 Days Active Social History Tobacco Use: Social History Observation Description Date Details (start date - stop date) Never Smoker NA - NA Tobacco Control (Standard) Question Answer Notes Tobacco use: Nonsmoker AUDIT-C (Standard) Question Answer Notes Did you have a drink containing alcohol in the p ast year? No Points 0 Interpretation Negative Problems Problem Type SNOMED Code ICD Code Onset Dates Problem Status W/U Status Risk Notes Problem Elevated liver enzymes level (293601776) Elevated liver function tests (R79.89) Active confirmed Problem Gallstones (972959521) Gallstones (K80.20) Active confirmed Problem Raised antinuclear antibody (760103501) MARIEL positive (R76.8) Active confirmed Vital Signs Temperature 98.2 degrees Fahrenheit 02/08/2025 Blood pressure diastolic 01 mm Hg 02/08/2025 Height 63 in 02/08/2025 Blood pressure systolic 001 mm Hg 02/08/2025 Weight 137.8 lbs 02/08/2025 BMI 24.41 kg/m2 02/08/2025 Encounters Encounter Location Date Provider Diagnosis [facility] [address] [place] [address] 02/08/2025 Waldemar Castañeda Elevated liver function tests R79.89 ; MARIEL positive R76.8 and Gallstones K80.20 Assessments Encounter Date Diagnosis (ICD Code) Assessment Notes Treatment Notes Treatment Clinical Notes Section Notes 02/08/2025 Elevated liver function tests (ICD-10 - R79.89) Overall, Melisa does not seem to describe any symptoms nor show any signs of chronic liver disease. Overall, the minimally elevated liver enzymes do not seem concerning and I do not think this represents autoimmune hepatitis based on just the minimal elevation of the liver enzymes, normal-appearing liver on the imaging studies, and no other symptoms such as fatigue to suggest any ongoing significant liver problem. I advised Melisa, her , and her daughter that I feel the elevated MARIEL is unrelated to her minimally elevated LFTs. I advised that the minimally elevated LFTs could be related to some mild fatty liver in relation to hyperlipidemia. Again, based on her exam and her laboratory testing there does not appear to be any sign of liver dysfunction. I would not recommend a liver biopsy at this time. In regard to the elevated MARIEL this might be related to some other autoimmune process given the reported history of CREST syndrome although Melisa and her family do not seem to know of any diagnosis of scleroderma. I advised them that they should speak with you about a rheumatology referral for a complete workup in regard to the positive MARIEL and some other possible underlying autoimmune process. I did recommend that we obtain the laboratories as described below to reevaluate her liver enzymes and any possibility of autoimmune liver disease. If the LFTs just remain minimally elevated that I would not pursue any further workup in that regard. While her GGTP is somewhat elevated I do not think it is anywhere near the range 1 would expect from an autoimmune hepatitis given that the GGTP tends to be very sensitive and can rise from fatty liver or medications. I am going to repeat her MARIEL and IgG to see if they remain elevated, or perhaps the elevations back in September were spurious or related to some other acute process. At this point I shall await the results of her laboratories. If they are nonrevealing in regard to her liver I advised her that she could then see me on a as needed basis. Again, I did advise her and her daughter to speak with you about a referral to a Direct Service Worker. We did have a detailed discussion today regarding the finding of the gallstones. I advised her that these are asymptomatic and an incidental finding. We did review potential symptoms of gallbladder disease, specifically that of right upper quadrant and epigastric pain, as well as any associated symptoms such as jaundice or fever. I did advise her that if the gallbladder becomes symptomatic she would then need a surgical referral. However, at this point since things are asymptomatic I advised her that it she would not need any intervention for them at the present time. We did review her colonoscopy last year and given the negative findings I advised that she would not need any further screening colonoscopies given her age already of 74. Melisa and her family were comfortable with this plan. Thank you again for allowing me to have participated in Melisa's care. I shall continue to keep you advised of her progress as needed. Please do not hesitate to contact me if I can be of any further assistance in the future. 02/08/2025 MARIEL positive (ICD-10 - R76.8) You need a Rheumatology referral from Dr. Reece Overall, Melisa does not seem to describe any symptoms nor show any signs of chronic liver disease. Overall, the minimally elevated liver enzymes do not seem concerning and I do not think this represents autoimmune hepatitis based on just the minimal elevation of the liver enzymes, normal-appearing liver on the imaging studies, and no other symptoms such as fatigue to suggest any ongoing significant liver problem. I advised Melisa, her , and her daughter that I feel the elevated MARIEL is unrelated to her minimally elevated LFTs. I advised that the minimally elevated LFTs could be related to some mild fatty liver in relation to hyperlipidemia. Again, based on her exam and her laboratory testing there does not appear to be any sign of liver dysfunction. I would not recommend a liver biopsy at this time. In regard to the elevated MARIEL this might be related to some other autoimmune process given the reported history of CREST syndrome although Melisa and her family do not seem to know of any diagnosis of scleroderma. I advised them that they should speak with you about a rheumatology referral for a complete workup in regard to the positive MARIEL and some other possible underlying autoimmune process. I did recommend that we obtain the laboratories as described below to reevaluate her liver enzymes and any possibility of autoimmune liver disease. If the LFTs just remain minimally elevated that I would not pursue any further workup in that regard. While her GGTP is somewhat elevated I do not think it is anywhere near the range 1 would expect from an autoimmune hepatitis given that the GGTP tends to be very sensitive and can rise from fatty liver or medications. I am going to repeat her MARIEL and IgG to see if they remain elevated, or perhaps the elevations back in September were spurious or related to some other acute process. At this point I shall await the results of her laboratories. If they are nonrevealing in regard to her liver I advised her that she could then see me on a as needed basis. Again, I did advise her and her daughter to speak with you about a referral to a Direct Service Worker. We did have a detailed discussion today regarding the finding of the gallstones. I advised her that these are asymptomatic and an incidental finding. We did review potential symptoms of gallbladder disease, specifically that of right upper quadrant and epigastric pain, as well as any associated symptoms such as jaundice or fever. I did advise her that if the gallbladder becomes symptomatic she would then need a surgical referral. However, at this point since things are asymptomatic I advised her that it she would not need any intervention for them at the present time. We did review her colonoscopy last year and given the negative findings I advised that she would not need any further screening colonoscopies given her age already of 74. Melisa and her family were comfortable with this plan. Thank you again for allowing me to have participated in Melisa's care. I shall continue to keep you advised of her progress as needed. Please do not hesitate to contact me if I can be of any further assistance in the future. 02/08/2025 Gallstones (ICD-10 - K80.20) If the gallstoners become symptomatic with right upper abdominal pain you would need to see a surgeon. Overall, Melisa does not seem to describe any symptoms nor show any signs of chronic liver disease. Overall, the minimally elevated liver enzymes do not seem concerning and I do not think this represents autoimmune hepatitis based on just the minimal elevation of the liver enzymes, normal-appearing liver on the imaging studies, and no other symptoms such as fatigue to suggest any ongoing significant liver problem. I advised Melisa, her , and her daughter that I feel the elevated MARIEL is unrelated to her minimally elevated LFTs. I advised that the minimally elevated LFTs could be related to some mild fatty liver in relation to hyperlipidemia. Again, based on her exam and her laboratory testing there does not appear to be any sign of liver dysfunction. I would not recommend a liver biopsy at this time. In regard to the elevated MARIEL this might be related to some other autoimmune process given the reported history of CREST syndrome although Melisa and her family do not seem to know of any diagnosis of scleroderma. I advised them that they should speak with you about a rheumatology referral for a complete workup in regard to the positive MARIEL and some other possible underlying autoimmune process. I did recommend that we obtain the laboratories as described below to reevaluate her liver enzymes and any possibility of autoimmune liver disease. If the LFTs just remain minimally elevated that I would not pursue any further workup in that regard. While her GGTP is somewhat elevated I do not think it is anywhere near the range 1 would expect from an autoimmune hepatitis given that the GGTP tends to be very sensitive and can rise from fatty liver or medications. I am going to repeat her MARIEL and IgG to see if they remain elevated, or perhaps the elevations back in September were spurious or related to some other acute process. At this point I shall await the results of her laboratories. If they are nonrevealing in regard to her liver I advised her that she could then see me on a as needed basis. Again, I did advise her and her daughter to speak with you about a referral to a Direct Service Worker. We did have a detailed discussion today regarding the finding of the gallstones. I advised her that these are asymptomatic and an incidental finding. We did review potential symptoms of gallbladder disease, specifically that of right upper quadrant and epigastric pain, as well as any associated symptoms such as jaundice or fever. I did advise her that if the gallbladder becomes symptomatic she would then need a surgical referral. However, at this point since things are asymptomatic I advised her that it she would not need any intervention for them at the present time. We did review her colonoscopy last year and given the negative findings I advised that she would not need any further screening colonoscopies given her age already of 74. Melisa and her family were comfortable with this plan. Thank you again for allowing me to have participated in Melisa's care. I shall continue to keep you advised of her progress as needed. Please do not hesitate to contact me if I can be of any further assistance in the future. Plan Of Treatment Pending Test Test Name Order Date LIVER PROFILE 02/08/2025 CBC w DIFF 02/08/2025 SED RATE (ESR) 02/08/2025 IMMUNOGLOBULIN G, SERUM (IgG) 02/08/2025 FLUOR. ANTINUCLEAR AB SCREEN (HAFSA) 01/24 Prothrombin Time INR 02/08/2025 Smooth Muscle Antibody 02/08/2025 Insurance Providers Payer Name Payer Address Payer Phone Subscriber Number Group Number Insured Name Patient Relationship to Insured Coverage Start Date Coverage End Date [employer] [address] [address] [place] [address] [id number] TYRONLIAM KENNEDY MELISA Self - patient is the insured MEDICAID OF [facility] [address] [place] [address] [id number] JUSTINYVAN SALINAS KENNEDYA Self - patient is the insured 7 Medical (General) History Medical History History ICD Code Hypothyroidism Hypertension Hyperlipidemia Reported CREST syndrome with Raynaud's + MARIEL Osteoporosis Asymptomatic gallstones reviewed at the 01/2025 OV Slight elevation of the liver enzymes Negative colonoscopy with Dr. Frazier in 4- -no adenomas Surgical History Surgery Date(Month/Year) septoplasty
--- OUTSIDE RECORDS SUMMARY | 2025-02-10 08:06 | XMS_ITS | Clinical Summary ---
Author Organization [facility] [address] [place] [address] [place] [phone] Phone Care Team Providers Care Production Machine Tender Name Role Phone Jade Reece MD Primary Care Provider [phone] Surgical History Surgery Date Site/Laterality Comments COLONOSCOPY 12/27/2007 PROCEDURE: CT COLONOSCOPY FLX DX W/COLLJ SPEC WHEN PFRMD; [...] - 1-dose 75+ series) 2023 COVID-19 Vaccine (3 - season) 2024 10/21/2020, 09/30/2020 Hypertension/CHF/CAD Annual BMP Blood Test 10/20/2024 Influenza Vaccine (#1) 2025 Breast Cancer Screening Discontinued 10/21/19, 07/03/2023, [...] for breast cancer from Last 3 Months or Most Recently Relevant to Health Maintenance Results * MG Mammo Digital Screening w Brian bilat (10/20/2024 1:50 PM EDT) Anatomical Region Laterality Modality Breast Bilateral Mammography 10/21/2024 8:49 AM EDT Impressions 10/21/2024 8:51 AM EDT No mammographic evidence for malignancy. BI-RADS CATEGORY: 1 - NEGATIVE RECOMMENDATION: Screening bilateral mammogram is recommended in 1 year. Mammo Location: [facility], [address] [place] [address], [address], . -------- FINAL REPORT -------- Dictated By: Maliha Toney Dictated Date: 10/21/2024 08:49 ET Assigned Physician: Maliha Toney Reviewed and Electronically Signed By: Maliha Toney Signed Date: 10/21/2024 08:51 ET Workstation ID: [id number] Transcribed By: Self Edit Transcribed Date: 10/21/2024 [...] evidence of suspicious mass or architectural distortion. No worrisome calcifications are evident. There has been no significant change from prior exam(s). BREAST DENSITY: B - [...] is recommended in 1 year. Mammo Location: [facility], [address] [place] [address], [address], . -------- FINAL REPORT -------- Dictated By: Maliha Toney Dictated Date: 10/21/2024 08:49 ET Assigned Physician: Maliha Toney Reviewed and Electronically Signed By: Maliha Toney Signed Date: 10/21/2024 08:51 ET Workstation ID: [id number] Transcribed By: Self Edit Transcribed Date: 10/21/2024 08:49 ET Jade Reece MD IMG BI PROCEDURES Final Result from Last 3 Months or Most Recently Relevant to Health Maintenance Insurance [place] - [place] [facility] [place] [id number] Care Teams Production Machine Tender Relationship Specialty Start Date End Date Jade Reece MD PCP - General Internal Medicine 07/08/24
[2025-02-10 10:13] LABS: MANUAL DIFF FLAG NO
[2025-02-10 10:23] LABS: INTERNATIONAL NORM RATIO 1.0 (0.9-1.1); Prothrombin Time 11.1 SEC (10.9-12.4)
[2025-02-10 10:24] LABS: Hematocrit 41.8 % (37.0-47.0); Hemoglobin 13.3 g/dl (12.0-16.0); Imm Gran Abs Auto 0.01 X10*3/uL (0.00-0.03); Imm Gran Pct Auto 0.2 % (0.0-0.4); Lymphocytes Absolute Auto 1.6 X10*3/uL (1.2-4.9); Mean Corpuscular HGB Conc 31.8 g/dl (31.0-35.0); Mean Corpuscular Hemoglobin 29.6 pg (27.0-33.0); Mean Corpuscular Volume 93.1 fL (80.0-98.0); NRBC Abs Auto 0.000 X10*3/uL (0.0-0.012); NRBC Pct Auto 0.0 /100WBC (0.0-0.2); Platelet Count 239 X10*3/uL (160-400); Red Blood Count 4.49 X10*6/uL (4.20-5.50); White Blood Count 6.6 X10*3/uL (4.8-10.8)
[2025-02-10 10:54] LABS: Alanine Aminotransferase 91 U/L (0-31); Albumin Level 4.6 g/dL (3.5-5.0); Alkaline Phosphatase 174 U/L (39-117); Aspartate Amino Transferase 73 U/L (5-31); Total Protein 8.0 g/dL (6.5-8.0)
[2025-02-13 10:14] LABS: Immunoglobulin G 1500 mg/dL (600-1540)
[2025-02-17 14:53] LABS: ANA Titer 3 1:320 titer; Anti Nuclear Antibody Pattern Nuclear, Centromere; Anti Nuclear Antibody Screen POSITIVE (NEGATIVE); Anti Nuclear Antibody Titer 1:1280 titer
== END 2025-02-10 08:04 | disposition home or self-care (01) ==
LOC: HO.HMGCLDS 08:03
PROVIDERS: PCP Internal Medicine; Visit Provider Internal Medicine
DX: R79.89 Other specified abnormal findings of blood chemistry (principal); R76.8 Other specified abnormal immunological findings in serum
CPT/HCPCS: 36415; 80076; 82784; 85025; 85610; 85652; 86015; 86038; 86039

== ENCOUNTER 2025-02-14 08:42 | Outpatient (AMB) | payer MEDICARE, MEDICAID, SELFPAY ==
[2025-02-14 08:44] VITALS: BP 136/78; PULSE 77; RESP 18; TEMP 36.8; BMI 25.1
--- NOTE | 2025-02-14 08:44 | MHC.PC.OV ---
Vital Signs 02/14/25 08:44 Height 5 ft 2 in Weight 137 lb BMI 25.1 BP 136/78 Blood Pressure Location Lt brachial Position Sitting Respiration 18 Pulse 77 Pulse Source Pulse Oximeter Temp 98.2 F Temp Source Oral Intake Visit Reasons: Follow up to discuss some questions Intake Note: Pt is here today for a follow up visit to discuss mammogram results and blood work results. Allergies rosuvastatin (From Crestor) Adverse Reaction (Intermediate, Verified 10/06/24 09:04) Abdominal Pain amlodipine Adverse Reaction (Verified 10/06/24 09:04) face turned red, dizziness headaches Medication List - Last Reconciled 02/14/25 by Jade Reece MD ezetimibe (Zetia) 10 mg PO DAILY levothyroxine 50 mcg PO DAILY lisinopril 20 mg PO BID omega-3 fatty acids 500 mg PO DAILY omeprazole 40 mg PO DAILY Tobacco use date assessed: 02/14/25 Fall risk assessment: No Falls in past year Last assessed Fall Risk: 02/14/25 Dental Screening Dental Screen Date: 02/14/25 Did you have a dental visit in the last 12 months?: Yes Did you have a dental problem in the last 6 months where you did not have access to dental care?: No Was dental information given to patient?: Patient has dentist HPI Follow up to discuss some questions HPI Details Pt presents for f/u HTN, hypothyroid, hyperlipid, stable on meds. Pt was evaluated by GI for borderline elevated LFTs. [facility] Medical History Abnormal colonoscopy Pre-op examination Annual physical exam Biliary obstruction Autoimmune hepatitis Hypothyroidism Calcific tendinitis of right shoulder Anxiety Hyponatremia Eczema Rosacea Hypertension Dysplastic nevi Breast pain, left Elevated LFTs Hyperlipidemia Lumbar radiculopathy CREST syndrome Osteoporosis Surgical History H/O colonoscopy History of nasal septoplasty Family History Father No problems noted. Mother No problems noted. Daughter No problems noted. Daughter No problems noted. Daughter No problems noted. 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 Cognitive needs: No Hearing needs: No Vision needs: Yes Questionnaire Thrive Questionnaire Date Thrive assessed: 02/19/24 I am a: Patient What is your living situation today?: I have a steady place to live Within the past 12 months, did the food you bought not last and you didn't have the money to get more?: Often true Within the past 12 months, did you worry whether your food would run out before you got money to buy more?: Never true Do you have trouble paying for medicines?: No Do you have trouble getting transportation to medical appointments?: No Do you have trouble paying your heating and electricity bill?: No Do you have trouble taking care of your child, family member or friend?: No Do you have trouble with day-to-day activities such as bathing, preparing meals, shopping, managing finances, etc.?: No Are you currently unemployed and looking for a job?: No Are you interested in more education?: No Please select the resources that you would like help with: None Currently or been in a relationship where the following occur: No concerns reported THRIVE Score: 1 AUDIT C Alcohol Use Questionnaire (AUDIT-C) 1. How often do you have a drink containing alcohol?: Never 3. How often do you have six or more drinks on one occasion?: Never Total Score: 0 DONI-7 AMB Questionnaire DONI-7 Date DONI - 7 assessed: 03/11/24 Source: Developed by Drs. Waldemar Buchanan, Robyn Burr, Jalil Sam and colleagues, with an educational mp from [employer] ([employer]). Review of Systems Const All systems reviewed & are unremarkable except as noted in HPI and below Eyes Reports no additional complaints ENT Reports no additional complaints Card Reports no additional complaints Resp Reports no additional complaints GI Reports no additional complaints Reports no additional complaints Physical exam (Primary Care) Vital Signs: Last Vital Signs Temp 98.2 F 02/14/25 08:44 Pulse 77 02/14/25 08:44 Resp 18 02/14/25 08:44 BP 136/78 02/14/25 08:44 BMI result Body Mass Index 25.1 Tobacco/Smoking Status: Tobacco use Status Tobacco use date assessed 02/14/25 02/14/25 08:54 Patient Tobacco Use Status Never used Tobacco 02/14/25 08:46 e-Cigarette/Vaping Use Never Used 02/14/25 08:46 Thrive Assessment: Date of Thrive Assessment Date Thrive assessed 02/19/24 02/14/25 08:46 Currently or been in a relationship where the following occur: No concerns reported Const General: no acute distress HENMT Head: Yes normal to inspection Face and sinus: Yes normal facial exam Eyes General: appearance normal, both eyes and all related structures Neck Neck: Yes no lymphadenopathy and Yes supple Resp Effort & Inspection: normal respiratory effort Auscultation: clear to auscultation bilaterally Cardio Rhythm: regular rhythm Heart sounds: S1 normal heart sound present and S2 normal heart sound present GI Inspection: Yes normal to inspection Palpation (GI): Soft to palpation Percussion: Yes normal to percussion Auscultation: normal bowel sounds Coding Level of Care Code Est Pt Level 4 (92417) Complex EM visit Add On G2211 Diagnoses Hypertension I10 Hyperlipidemia E78.5 Anxiety F41.9 Elevated LFTs R79.89 Assessment & Plan Assessment & Plan (1) Hypertension: Comment: Amlodipine caused leg swelling Code(s): I10 - Essential (primary) hypertension Category: Medical Plan: Continue Lisinopril (2) Hyperlipidemia: Comment: intolerant to Crestor, pravastatin, simvastatin, controlled on Zetia Code(s): E78.5 - Hyperlipidemia, unspecified Category: Medical Plan: Continue Zetia (3) Anxiety: Code(s): F41.9 - Anxiety disorder, unspecified Category: Medical Plan: Stress management discussed with the patient (4) Elevated LFTs: Comment: Workup negative 2017 hepatitis-B C, ceruloplasmin MARIEL negative, follow-up with GI Dr Nuñez, CT scan abd negative 2014, US stable hepatic cyst 03/17 Code(s): R79.89 - Other specified abnormal findings of blood chemistry Category: Medical Plan: Monitor LFT
--- OUTSIDE RECORDS SUMMARY | 2025-02-14 09:01 | XMS_ITS | Clinical Summary ---
Author Organization [facility] [address] [place] [address] [place] [phone] Phone Care Team Providers Care Stage Hand Name Role Phone Jade Reece MD Primary Care Provider Surgical History Surgery Date Site/Laterality Comments COLONOSCOPY 12/27/2007 PROCEDURE: [place] COLONOSCOPY FLX DX W/COLLJ SPEC WHEN PFRMD; [...] Panel) 07/05/2022 Colorectal Cancer Screening: Colonoscopy 07/05/2022 Falls Risk Assessment 07/05/2022 Hepatitis C Screening 07/05/2022 Osteoporosis Screening (Bone Density Screening) 07/05/2022 Social Influencers of Health Screening 07/05/2022 RSV Immunization Adult Patients (1 - 1-dose 75+ series) 2023 COVID-19 Vaccine (3 - season) 2024 10/21/2020, 09/30/2020 Depression Screening 2024 Hypertension/CHF/CAD Annual BMP Blood Test 10/20/2024 Influenza [...] is recommended in 1 year. Mammo Location: [facility], [address] [place] [address], [address], . -------- FINAL REPORT -------- Dictated By: Maliha Toney Dictated Date: 10/21/2024 08:49 ET Assigned Physician: Maliha Toney Reviewed and Electronically Signed By: Maliha Toney Signed Date: 10/21/2024 08:51 ET Workstation ID: [id number] Transcribed By: Self Edit Transcribed Date: 10/21/2024 [...] is recommended in 1 year. Mammo Location: [facility], [address] [place] [address], [address], . -------- FINAL REPORT -------- Dictated By: Maliha Toney Dictated Date: 10/21/2024 08:49 ET Assigned Physician: Maliha Toney Reviewed and Electronically Signed By: Maliha Toney Signed Date: 10/21/2024 08:51 ET Workstation ID: [id number] Transcribed By: Self Edit Transcribed Date: 10/21/2024 08:49 ET Jade Reece MD IMG BI PROCEDURES Final Result from Last 3 Months or Most Recently Relevant to Health Maintenance Insurance [place] - [place] [facility] [place] [id number] Care Teams Stage Hand Relationship Specialty Start Date End Date Jade Reece MD PCP - General Internal Medicine 07/08/24
--- OUTSIDE RECORDS SUMMARY | 2025-02-14 09:01 | XMS_ITS | Encounter Summary ---
Author Organization [facility] Address [address] [place] [address] Phone Care Team Providers Care Controls Project Engineer Name Role Phone Jade Reece MD Primary Care Provider [phone] Encounter Details Date Type Department Care Team (Late st Contact Info) Description 12/31/2021 Documentation Only [facility] [place], [address] [place] [address] Betty Judge [address] [place] [address] Social History Tobacco Use Types [...] on filedocumented in this encounter Care Teams Controls Project Engineer Relationship Specialty Start Date End Date Jade Reece MD 1963 [facility] [place] [facility] [place] [address] PCP - General Internal Medicine 10/21/21 documented as of this encounter
--- OUTSIDE RECORDS SUMMARY | 2025-02-14 09:01 | XMS_ITS | Patient Health Record ---
Author Organization [facility] Address [address] [place] [address] Care Team Providers Care Coater Operator Name Role Phone Jade Reece MD Primary Care Provider Waldemar Perales [phone] Allergies Allergen (clinical drug ingredient) Drug/Non Drug Allergy documented on EMR Reaction Allergy Type Onset Date Status rosuvastatin Rosuvastatin Unknown Drug Allergy A ctive amlodipine amLODIPine Unknown Drug Allergy Activ e Results Component Value Reference Range Notes Prothrombin Time INR (Not ye t reviewed by provider) Interpretation: Performing Lab:[address] [address] Notes/Report: Prothrombin Time 11.1 10.9-12.4 SEC INTERNATIONAL NORM RATIO 1.0 0.9-1.1 INTERNATIONAL NORMALIZED RATIO (INR) REFERENCE RANGES Reference Range For patients not on anticoagulant therapy: 0.9 - 1.1 INR ranges for oral anticoagulant therapy: For prevention and treatment of venous thrombosis and pulmonary embolism: 2.0 - 3.0 For acute myocardial infarction with aspirin therapy: 2.0 - 3.0 For acute myocardial infarction without aspirin therapy: 3.0 - 4.0 For patients with mechanical prosthetic heart valves: 2.5 - 3.5 Complete Blood Count Auto Di ff (Not yet reviewed by provider) Interpretation: Performing Lab:[address] [address] Notes/Report: White Blood Count 6.6 4.8-10.8 X10*3/uL Red Blood Count 4.49 4.20-5.50 X10*6/uL Hemoglobin 13.3 12.0-16.0 g/dl Hematocrit 41.8 37.0-47.0 % Mean Corpuscular Volume 93.1 80.0-98.0 fL Mean Corpuscular Hemoglobin 29.6 27.0-33.0 pg Mean Corpuscular HGB Conc 31.8 31.0-35.0 g/dl Red Cell Distribution Width 13.0 11.0-16.0 % Platelet Count 239 160-400 X10*3/uL Mean Platelet Volume 11.5 9.4-12.3 fL Neutrophils Percent Auto 62.7 45-73 % Imm Gran Pct Auto 0.2 0.0-0.4 % Lymphocytes Percent Auto 23.5 20-40 % Monocytes Percent Auto 8.0 2-11 % Eosinophils Percent Auto 4.8 0-4 % Basophils Percent Auto 0.8 0-2 % NRBC Pct Auto 0.0 0.0-0.2 /100WBC Neutrophils Absolute Auto 4.2 2.0-8.3 x10*3/u L Imm Gran Abs Auto 0.01 0.00-0.03 X10*3/uL Lymphocytes Absolute Auto 1.6 1.2-4.9 X10*3/u L Monocytes Absolute Auto 0.5 0.1-1.2 X10*3/uL Eosinophils Absolute Auto 0.3 0.0-0.4 X10*3/u L Basophils Absolute Auto 0.1 0.0-0.2 X10*3/uL NRBC Abs Auto 0.000 0.0-0.012 X10*3/uL Erythrocyte Sedimentation Ra te (Not yet reviewed by provider) Interpretation: Performing Lab:[address] [address] Notes/Report: Erythrocyte Sedimentation Rate 18 0-20 MM/HR Patients with polycythemia and many hemoglobin abnormalities may have depressed sed rates whereas patients with anemia may have elevated sed rates. Liver Panel (Not yet reviewe d by provider) Interpretation: Performing Lab:[address] [address] Notes/Report: Bilirubin Total 0.5 0.0-1.0 mg/dL Bilirubin Direct 0.2 0.0-0.5 mg/dL Aspartate Amino Transferase 73 5-31 U/L Alanine Aminotransferase 91 0-31 U/L Total Protein 8.0 6.5-8.0 g/dL Albumin Level 4.6 3.5-5.0 g/dL Alkaline Phosphatase 174 39-117 U/L Reason For Referral No Information Medications Medication [...] W/U Status Risk Notes Problem Elevated liver function tests (R79.89) Active confirmed Problem Gallstones (890117245) Gallstones (K80.20) Active confirmed Problem Raised antinuclear antibody (431150050) MARIEL positive (R76.8) Active confirmed Vital Signs Temperature 98.2 degrees Fahrenheit 02/08/2025 Blood pressure diastolic 01 mm Hg 02/08/2025 Height 63 in 02/08/2025 Blood pressure systolic 001 mm Hg 02/08/2025 Weight 137.8 lbs 02/08/2025 BMI 24.41 kg/m2 02/08/2025 Encounters Encounter Location Date [facility] [address] [place] [address] 02/08/2025 Waldemar Castañeda Elevated liver function tests [...] with you about a referral to a Chief Procurement Officer. We did have a detailed discussion today [...] with you about a referral to a Chief Procurement Officer. We did have a detailed discussion today [...] with you about a referral to a Chief Procurement Officer. We did have a detailed discussion today [...] 02/08/2025 FLUOR. ANTINUCLEAR AB SCREEN (HAFSA) 01/24 Complete Blood Count Auto Diff Erythrocyte Sedimentation Rate Prothrombin Time INR 02/08/2025 Liver Panel 02/10/2025 Smooth Muscle Antibody 02/08/2025 Insurance Providers Payer Name Payer Address Payer Phone Subscriber Number Group Number Insured Name Patient Relationship to Insured Coverage Start Date Coverage End Date [facility] [address] [address] [place] [address] [phone] [id number] TYRONLIAM KENNEDYSALINASA Self - patient is the insured MEDICAID OF [employer] [address] [place] [phone] [id number] MELISA MUÑOZ Self - patient is the insured 7 Medical (General) History Medical History History ICD Code Hypothyroidism Hypertension Hyperlipidemia Reported CREST syndrome with Raynaud's + MARIEL Osteoporosis Asymptomatic gallstones reviewed at the 01/2025 OV Slight elevation of the liver enzymes Negative colonoscopy with Dr. Frazier in - -no adenomas Surgical History Surgery Date(Month/Year) septoplasty
== END 2025-02-14 15:29 | disposition home or self-care (01) ==
LOC: HO.HMCC 08:42
PROVIDERS: PCP Internal Medicine; Visit Provider Internal Medicine
DX: I10 Essential (primary) hypertension (principal); E78.5 Hyperlipidemia, unspecified; F41.9 Anxiety disorder, unspecified; R79.89 Other specified abnormal findings of blood chemistry

== ENCOUNTER → 2025-02-14 08:42 | Outpatient (BNVA) | payer MEDICARE, OTHER, SELFPAY | PROVIDERS: PCP Internal Medicine; Visit Provider Internal Medicine | DX: I10 Essential (primary) hypertension (principal); E78.5 Hyperlipidemia, unspecified; F41.9 Anxiety disorder, unspecified; R79.89 Other specified abnormal findings of blood chemistry | CPT/HCPCS: 99212 ==

== ENCOUNTER 2025-04-04 07:57 | Outpatient (REF) | payer MEDICARE, MEDICAID, SELFPAY ==
--- OUTSIDE RECORDS SUMMARY | 2025-04-04 08:07 | XMS_ITS | Clinical Summary ---
Author Organization [facility] [address] [place] [address] [place] [address] Phone Care Team Providers Care Adzing And Boring Machine Helper Name Role Phone Jade Reece MD Primary Care Provider [phone] Surgical History Surgery Date Site/Laterality Comments COLONOSCOPY 12/27/2007 PROCEDURE: AL COLONOSCOPY FLX DX W/COLLJ SPEC WHEN PFRMD; [...] Patients (1 - 1-dose 75+ series) 2023 Depression Screening 2024 Hypertension/CHF/CAD Annual BMP Blood Test 10/20/2024 COVID-19 Vaccine ( - season) 2025 10/21/2020, 09/30/2020 Influenza Vaccine (#1) 2025 Breast Cancer Screening [...] is recommended in 1 year. Mammo Location: [facility], [address] [place] [address], [address], . -------- FINAL REPORT -------- Dictated By: Maliha Toney Dictated Date: 10/21/2024 08:49 ET Assigned Physician: Maliha Toney Reviewed and Electronically Signed By: Maliha Toney Signed Date: 10/21/2024 08:51 ET Workstation ID: [id number] Transcribed By: Self Edit Transcribed Date: 10/21/2024 [...] is recommended in 1 year. Mammo Location: [facility], [address] [place] [address], [address], . -------- FINAL REPORT -------- Dictated By: Maliha Toney Dictated Date: 10/21/2024 08:49 ET Assigned Physician: Maliha Toney Reviewed and Electronically Signed By: Maliha Toney Signed Date: 10/21/2024 08:51 ET Workstation ID: [id number] Transcribed By: Self Edit Transcribed Date: 10/21/2024 08:49 ET Jade Reece MD IMG BI PROCEDURES Final Resul t from Last 3 Months or Most Recently Relevant to Health Maintenance Insurance MEDICAID - [place] [facility] [place] [id number] Care Teams Adzing And Boring Machine Helper Relationship Specialty Start Date End Date Jade Reece MD PCP - General Internal Medicine 07/08/24
--- OUTSIDE RECORDS SUMMARY | 2025-04-04 08:07 | XMS_ITS | Encounter Summary ---
Author Organization [facility] Address [address] [place] [address] Phone Care Team Providers Care Dope And Fabric Worker Name Role Phone Jade Reece MD Primary Care Provider [phone] Encounter Details Date Type Department Care Team (Late st Contact Info) Description 12/31/2021 Documentation Only [facility] [place], [address] [place] [address] Betty Judge [address] [place] [address] Social History Tobacco Use Types [...] on filedocumented in this encounter Care Teams Dope And Fabric Worker Relationship Specialty Start Date End Date Jade Reece MD [address] [place] [address] PCP - General Internal Medicine 10/21/21 documented as of this encounter
--- OUTSIDE RECORDS SUMMARY | 2025-04-04 08:08 | XMS_ITS | Encounter Summary ---
Author Organization [facility] Address [address] [place] [address] Phone Care Team Providers Care Start Up Specialist Name Role Phone Jade Reece MD Primary Care Provider [phone] Encounter Details Date Type Department Care Team (Late st Contact Info) Description 10/21/2021 Documentation Only [facility] [place], [address] [place] [address] Betty Judge [address] [place] [address] Social History Tobacco Use Types [...] on filedocumented in this encounter Care Teams Start Up Specialist Relationship Specialty Start Date End Date Jade Reece MD 1963 [facility] [place] [address] PCP - General Internal Medicine 10/21/21 documented as of this encounter
--- OUTSIDE RECORDS SUMMARY | 2025-04-04 08:08 | XMS_ITS | Patient Health Record ---
Author Organization [facility] Address [address] [place] [address] Care Team Providers Care Senior Research Fellow Name Role Phone Jade Reece MD Primary Care Provider Waldemar Perales [phone] Allergies Allergen (clinical drug ingredient) Drug/Non Drug Allergy documented on EMR Reaction Allergy Type Onset Date Status rosuvastatin Rosuvastatin Unknown Drug Allergy A ctive amlodipine amLODIPine Unknown Drug Allergy Activ e Results Component Value Reference Range Notes Prothrombin Time INR Reviewed date:02/19/2025 09:54:37 PM Interpretation: Performing Lab:[address] [address] Notes/Report: Prothrombin Time 11.1 10.9-12.4 SEC INTERNATIONAL [...] mechanical prosthetic heart valves: 2.5 - 3.5 Smooth Muscle Antibody Reviewed date:02/19/2025 09:54:29 PM Interpretation: Performing Lab:, [address] [place] [address] Notes/Report: Smooth Muscle Antibody <20 <20 U Reference Range: <20 U: Negative >or=20 U: Positive Antibodies recognizing actin are the main component of smooth muscle antibodies associated with auto- immune liver disease. Actin antibodies are found in approximately 75% of patients with autoimmune hepatitis (AIH) type 1, approximately 65% of patients with autoimmune cholangitis, approximately 30% of patients with primary biliary cirrhosis and approximately 2% of healthy controls. High values are closely correlated with AIH type 1. THIS TEST WAS PERFORMED AT: [facility] [id number] [place] [address] LASHANDA JACOBO MD,PHD Complete Blood Count Auto Di ff Reviewed date:02/19/2025 10:00:45 PM Interpretation: Performing Lab:, [address] [place] [address] Notes/Report: White Blood Count 6.6 4.8-10.8 X10*3/uL [...] 0.000 0.0-0.012 X10*3/uL Erythrocyte Sedimentation Ra te Reviewed date:02/19/2025 10:00:25 PM Interpretation: Performing Lab:, [address] [place] [address] Notes/Report: Erythrocyte Sedimentation Rate 18 0-20 MM/HR Patients with polycythemia and many hemoglobin abnormalities may have depressed sed rates whereas patients with anemia may have elevated sed rates. Liver Panel Reviewed date:02/21/2025 07:46:14 PM Interpretation: Performing Lab:[address] [address] Notes/Report: Bilirubin Total 0.5 0.0-1.0 mg/dL Bilirubin Direct 0.2 0.0-0.5 mg/dL Aspartate Amino Transferase 73 5-31 U/L Alanine Aminotransferase 91 0-31 U/L Total Protein 8.0 6.5-8.0 g/dL Albumin Level 4.6 3.5-5.0 g/dL Alkaline Phosphatase 174 39-117 U/L Immunoglobulin G Reviewed date:02/19/2025 10:00:16 PM Interpretation: Performing Lab:[address] [address] Notes/Report: Immunoglobulin G 8752 [address] mg/dL THIS TEST WAS PERFORMED AT: [facility] [address] [address] DIANN CHAIREZ MD MARIEL Reflex Titer and Pattern Reviewed date:02/21/2025 08:13:41 PM Interpretation: Performing Lab:[address] [address] Notes/Report: Anti Nuclear Antibody Screen POSITIVE NEGATIVE MARIEL IFA is a first line screen for detecting the presence of up to approximately 150 autoantibodies in various autoimmune diseases. A positive MARIEL IFA result is suggestive of autoimmune disease and reflexes to titer and pattern. Further laboratory testing may be considered if clinically indicated. For additional information, please refer to http://education.[employer]/faq/FA Q133 (This link is being provided for informational/ educational purposes only.) Anti Nuclear Antibody Titer 1:1280 Reference Range <1:40 Negative 1:40-1:80 Low Antibody Level >1:80 Elevated Antibody Level Anti Nuclear Antibody Pattern Nuclear, Centromere Centromere pattern is associated with limited cutaneous systemic sclerosis, CREST (Calcinosis, Raynaud's, Esophageal dysmotility, Sclerodactyly, Telangiectasia), primary biliary cholangitis (PBC), and other autoimmune diseases. AC-3: Centromere International Consensus on MARIEL Patterns (https://doi.org/05.10fewe-5658-0753) MARIEL Titer 2 1:1280 Reference Range <1:40 Negative 1:40-1:80 Low Antibody Level >1:80 Elevated Antibody Level MARIEL Pattern 2 Nuclear, Homogeneous Homogeneous pattern is associated with systemic lupus erythematosus (SLE), drug-induced lupus and juvenile idiopathic arthritis. AC-1: Homogeneous International Consensus on MARIEL Patterns (https://doi.org/05.10eljp-0143-3257) MARIEL Titer 3 1:320 Reference Range <1:40 Negative 1:40-1:80 Low Antibody Level >1:80 Elevated Antibody Level MARIEL Pattern 3 Cytoplasmic, Fine Speckled Abnormal Flag: A Scattered small speckles in the cytoplasm mostly with homogeneous or dense fine speckled background (e.g., anti-Margret-1). Pattern is associated with anti-synthetase syndrome, polymyositis/dermatomy ositis, limited systemic sclerosis, and idiopathic pleural effusion. AC-20: Fine Speckled International Consensus on MARIEL Patterns (https://doi.org/05.10hutj-7697-4752) THIS TEST WAS PERFORMED AT: [facility] [address] [place] [address] DIANN CHAIREZ MD Reason For Referral No Information Medications Medication [...] Risk Notes Problem Elevated liver enzymes level (428331128) Elevated liver function tests (R79.89) Active confirmed Problem Gallstones (553959142) Gallstones (K80.20) Active confirmed Problem Raised antinuclear antibody (537022736) MARIEL positive (R76.8) Active confirmed Vital Signs Temperature 98.2 degrees Fahrenheit 02/08/2025 Blood pressure diastolic 01 mm Hg 02/08/2025 Height 63 in 02/08/2025 Blood pressure systolic 001 mm Hg 02/08/2025 Weight 137.8 lbs 02/08/2025 BMI 24.41 kg/m2 02/08/2025 Encounters Encounter Location Date Provider Diagnosis [facility] [address] [place] [address] 02/08/2025 Waldemar Castañeda Elevated liver function tests R79.89 ; MARIEL positive R76.8 and Gallstones K80.20 [facility] [address] [place] [address] 02/21/2025 Waldemar Castañeda Assessments Encounter Date Diagnosis (ICD Code) Assessment [...] process given the reported history of CREST syndrome, although Melisa and her family do not [...] If the LFTs just remain minimally elevated then I would not pursue any further workup in that regard. While her GGTP is somewhat elevated I do not think it is anywhere near the range 1 would expect from an autoimmune hepatitis given that the GGTP tends to be very sensitive and can rise just from fatty liver or medications. I am [...] with you about a referral to a Real Estate Processor. We did have a detailed discussion today [...] and given the negative findings I advised her that she would not need any further [...] process given the reported history of CREST syndrome, although Melisa and her family do not [...] If the LFTs just remain minimally elevated then I would not pursue any further workup in that regard. While her GGTP is somewhat elevated I do not think it is anywhere near the range 1 would expect from an autoimmune hepatitis given that the GGTP tends to be very sensitive and can rise just from fatty liver or medications. I am [...] with you about a referral to a Real Estate Processor. We did have a detailed discussion today [...] and given the negative findings I advised her that she would not need any further [...] 02/08/2025 Gallstones (ICD-10 - K80.20) If the gallstones become symptomatic with right upper abdominal pain [...] process given the reported history of CREST syndrome, although Melisa and her family do not [...] If the LFTs just remain minimally elevated then I would not pursue any further workup in that regard. While her GGTP is somewhat elevated I do not think it is anywhere near the range 1 would expect from an autoimmune hepatitis given that the GGTP tends to be very sensitive and can rise just from fatty liver or medications. I am [...] with you about a referral to a Real Estate Processor. We did have a detailed discussion today [...] and given the negative findings I advised her that she would not need any further [...] 02/08/2025 FLUOR. ANTINUCLEAR AB SCREEN (HAFSA) 01/24 Insurance Providers Payer Name Payer Address Payer Phone Subscriber Number Group Number Insured Name Patient Relationship to Insured Coverage Start Date Coverage End Date [facility] [address] [address] [place] [address] [id number] TYRONMELISA PEARSON Self - patient is the insured MEDICAID OF [facility] [address] [place] [address] [id number] TYRONMELISA PEARSON Self - patient is the insured 7 Medical (General) History Medical History History ICD Code Hypothyroidism Hypertension Hyperlipidemia Reported CREST syndrome with Raynaud's + MARIEL Osteoporosis Asymptomatic gallstones reviewed at the 01/2025 OV Slight elevation of the liver enzymes Negative colonoscopy with Dr. Frazier in - -no adenomas Surgical History Surgery Date(Month/Year) septoplasty
--- OUTSIDE RECORDS SUMMARY | 2025-04-04 08:09 | XMS_ITS | Clinical Summary ---
Author Organization [facility] [place], Address [address] [place] [address] [place] [address] Phone Care Team Providers Care Store Product Demonstrator Name Role Phone Jade Reece MD Primary Care Provider [phone] Allergies No known active allergies Medications rosuvastatin [...] of 2 - PCV) 1969 Influenza Vaccine (#1) 2025 Hepatitis B Vaccine Aged Out No longe r eligible based on patient's age to complete this topic Insurance UHC Medicare Care Teams Store Product Demonstrator Relationship Specialty Start Date End Date Jade Reece MD 1963 [facility] [place] [address] PCP - General Internal Medicine 10/21/21
[2025-04-04 10:06] LABS: MANUAL DIFF FLAG NO
[2025-04-04 10:10] LABS: Hematocrit 40.8 % (37.0-47.0); Hemoglobin 13.3 g/dl (12.0-16.0); Imm Gran Abs Auto 0.02 X10*3/uL (0.00-0.03); Imm Gran Pct Auto 0.3 % (0.0-0.4); Lymphocytes Absolute Auto 1.8 X10*3/uL (1.2-4.9); Mean Corpuscular HGB Conc 32.6 g/dl (31.0-35.0); Mean Corpuscular Hemoglobin 29.7 pg (27.0-33.0); Mean Corpuscular Volume 91.1 fL (80.0-98.0); NRBC Abs Auto 0.000 X10*3/uL (0.0-0.012); NRBC Pct Auto 0.0 /100WBC (0.0-0.2); Platelet Count 223 X10*3/uL (160-400); Red Blood Count 4.48 X10*6/uL (4.20-5.50); White Blood Count 6.4 X10*3/uL (4.8-10.8)
[2025-04-04 10:40] LABS: Alanine Aminotransferase 45 U/L (0-31); Albumin Level 4.5 g/dL (3.5-5.0); Alkaline Phosphatase 146 U/L (39-117); Anion Gap 11 (12-20); Aspartate Amino Transferase 42 U/L (5-31); Blood Urea Nitrogen 17 mg/dL (9-16); Calcium 9.9 mg/dL (8.4-10.2); Carbon Dioxide 27 mmol/L (22-29); Chloride 103 mmol/L (96-108); Cholesterol 186 mg/dL (<200); Estimated Glomerular Filt Rate > 60; HDL Cholesterol 60 mg/dL (>40); Potassium 5.4 mmol/L (3.3-5.1); Sodium 136 mmol/L (135-145); Total Protein 8.0 g/dL (6.5-8.0); Triglycerides 111 mg/dL (<150)
[2025-04-04 11:34] LABS: Free T4 (Free Thyroxine) 1.08 ng/dL (0.71-1.85)
== END 2025-04-04 07:58 | disposition home or self-care (01) ==
LOC: HO.HMGCLDS 07:57
PROVIDERS: PCP Internal Medicine; Visit Provider Internal Medicine
DX: Z00.00 Encounter for general adult medical examination without abnormal findings (principal); R79.89 Other specified abnormal findings of blood chemistry; E03.9 Hypothyroidism, unspecified
CPT/HCPCS: 36415; 80053; 80061; 84439; 84443; 85025

== ENCOUNTER 2025-04-10 09:02 | Outpatient (AMB) | payer MEDICARE, MEDICAID, SELFPAY ==
[2025-04-10 09:14] VITALS: BP 138/80; PULSE 96; RESP 19; TEMP 36.9; BMI 24.7
--- NOTE | 2025-04-10 09:14 | A.OFFPC_ITS ---
Vital Signs 04/10/25 09:14 Height 5 ft 2 in Weight 135 lb BMI 24.7 BP 138/80 Blood Pressure Location Lt brachial Position Sitting Respiration 19 Pulse 96 Pulse Source Pulse Oximeter Temp 98.4 F Temp Source Oral Intake Visit Reasons: 6m f/u Intake Note: Pt is here today for 6 months follow up visit. Allergies rosuvastatin (From Crestor) Adverse Reaction (Intermediate, Verified 04/10/25 09:16) Abdominal Pain amlodipine Adverse Reaction (Verified 04/10/25 09:16) face turned red, dizziness headaches Medication List - Last Reconciled 04/10/25 by Jade Reece MD ezetimibe (Zetia) 10 mg PO DAILY levothyroxine 50 mcg PO DAILY lisinopril 20 mg PO BID omega-3 fatty acids 500 mg PO DAILY omeprazole 40 mg PO DAILY Tobacco use date assessed: 04/10/25 Fall risk assessment: No Falls in past year Last assessed Fall Risk: 04/10/25 Dental Screening Dental Screen Date: 02/14/25 HPI 6m f/u HPI Details Pt presents for F/U hypertension hyper lipidemia and hypothyroidism stable on current medications. Patient complains of persistent irritation of the left nipple.she denies any bleeding or discharge but reports intermittent sharp pain. Patient had normal mammogram and ultrasound in January. [facility] Medical History (Updated 04/10/25 @ 09:54 by Jade Reece MD) Abnormal nipple Abnormal colonoscopy Pre-op examination Annual physical exam Biliary obstruction Autoimmune hepatitis Hypothyroidism Calcific tendinitis of right shoulder Anxiety Hyponatremia Eczema Rosacea Hypertension Dysplastic nevi Breast pain, left Elevated LFTs Hyperlipidemia Lumbar radiculopathy CREST syndrome Osteoporosis Surgical History H/O colonoscopy History of nasal septoplasty Family History Father No problems noted. Mother No problems noted. Daughter No problems noted. Daughter No problems noted. Daughter No problems noted. 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 1. Little interest or pleasure in doing things: not at all 2. Feeling down, depressed, or hopeless: not at all 3. Trouble falling or staying asleep, or sleeping too much: not at all 4. Feeling tired or having little energy: not at all 5. Poor appetite or overeating: not at all 6. Feeling bad about yourself - or that you are a failure or have let yourself or your family down: not at all 7. Trouble concentrating on things, such as reading the newspaper or watching television: not at all 8. Moving or speaking so slowly that other people could have noticed. Or the opposite - being so fidgety or restless that you have been moving around a lot more than usual: not at all 9. Thoughts that you would be better off or of hurting yourself in some way: not at all Total score: 0 Depression Screening Interpretation: Negative Depression Screening Done: Yes Source: Developed by Drs. Waldemar Buchanan, Robyn Burr, Jalil Sam and colleagues, with an educational mp from [employer]. Thrive Questionnaire Date Thrive assessed: 04/10/25 I am a: Patient What is your living situation today?: I have a steady place to live Within the past 12 months, did the food you bought not last and you didn't have the money to get more?: Often true Within the past 12 months, did you worry whether your food would run out before you got money to buy more?: Never true Do you have trouble paying for medicines?: No Do you have trouble getting transportation to medical appointments?: No Do you have trouble paying your heating and electricity bill?: No Do you have trouble taking care of your child, family member or friend?: No Do you have trouble with day-to-day activities such as bathing, preparing meals, shopping, managing finances, etc.?: No Are you currently unemployed and looking for a job?: No Are you interested in more education?: No Please select the resources that you would like help with: None Currently or been in a relationship where the following occur: No concerns reported THRIVE Score: 1 DONI-7 AMB Questionnaire DONI-7 Date DONI - 7 assessed: 04/10/25 Feeling nervous, anxious, or on edge: 0 = Not at all Not being able to stop or control worryin = Not at all Worrying too much about different things: 0 = Not at all Trouble relaxin = Not at all Being so restless that it is hard to sit still: 0 = Not at all Becoming easily annoyed or irritable: 0 = Not at all Feeling afraid as if something awful might happen: 0 = Not at all Total DONI-7 score (0-4 normal; 5-9 mild; 10-14 moderate; 15-21 severe): 0 Source: Developed by Drs. Waldemar Buchanan, Robyn Burr, Jalil Sam and colleagues, with an educational mp from [employer]. Review of Systems Const All systems reviewed & are unremarkable except as noted in HPI and below Eyes Reports no additional complaints ENT Reports no additional complaints Card Reports no additional complaints Resp Reports no additional complaints GI Reports no additional complaints Reports no additional complaints Physical exam (Primary Care) Vital Signs: Last Vital Signs Temp 98.4 F 04/10/25 09:14 Pulse 96 04/10/25 09:14 Resp 19 04/10/25 09:14 BP 138/80 04/10/25 09:14 BMI result Body Mass Index 24.7 Tobacco/Smoking Status: Tobacco use Status Tobacco use date assessed 04/10/25 04/10/25 09:16 Patient Tobacco Use Status Never used Tobacco 04/10/25 09:16 e-Cigarette/Vaping Use Never Used 04/10/25 09:16 Depression Screening Interpretation: Negative Thrive Assessment: Date of Thrive Assessment Date Thrive assessed 02/19/24 04/10/25 09:16 Currently or been in a relationship where the following occur: No concerns reported Coding Level of Care Code Est Pt Level 4 (40496) Diagnoses Hypertension I10 Hyperlipidemia E78.5 Hypothyroidism E03.9 Abnormal nipple N64.9 Assessment & Plan Assessment & Plan (1) Hypertension: Comment: Amlodipine caused leg swelling Code(s): I10 - Essential (primary) hypertension Category: Medical Plan: Continue lisinopril (2) Hyperlipidemia: Comment: intolerant to Crestor, pravastatin, simvastatin, controlled on Zetia Code(s): E78.5 - Hyperlipidemia, unspecified Category: Medical Plan: Continue Zetia (3) Hypothyroidism: Code(s): E03.9 - Hypothyroidism, unspecified Category: Medical Plan: Continue Levothyroxine (4) Abnormal nipple: Comment: Left breast, normal mammogram and ultrasound 01/2025 at [place] Code(s): N64.9 - Disorder of breast, unspecified Category: Medical Plan: Referred to breast surgeon at [facility] Orders: Orders Complete Blood Count Auto Diff 6 Months E03.9 - Hypothyroidism, unspecified, E55.9 - Vitamin D deficiency, unspecified, E78.5 - Hyperlipidemia, unspecified, I10 - Essential (primary) hypertension TSH reflex Free T4 6 Months E03.9 - Hypothyroidism, unspecified, E55.9 - Vitamin D deficiency, unspecified, E78.5 - Hyperlipidemia, unspecified, I10 - Essential (primary) hypertension Vitamin D 25-OH Total 6 Months E03.9 - Hypothyroidism, unspecified, E55.9 - Vitamin D deficiency, unspecified, E78.5 - Hyperlipidemia, unspecified, I10 - Essential (primary) hypertension Comprehensive [facility]. Panel Fast 6 Months E03.9 - Hypothyroidism, unspecified, E55.9 - Vitamin D deficiency, unspecified, E78.5 - Hyperlipidemia, unspecified, I10 - Essential (primary) hypertension Lipid Panel 6 Months E03.9 - Hypothyroidism, unspecified, E55.9 - Vitamin D deficiency, unspecified, E78.5 - Hyperlipidemia, unspecified, I10 - Essential (primary) hypertension Referrals Breast Surgery Referral N64.9 - Disorder of breast, unspecified
--- OUTSIDE RECORDS SUMMARY | 2025-04-10 10:34 | XMS_ITS | Clinical Summary ---
Author Organization [facility], Address [address] [place] [address] [place] [address] Phone Care Team Providers Care Pot Reliner Name Role Phone Jade Reece MD Primary Care Provider [phone] Allergies No known active allergies Medications rosuvastatin [...] this topic Insurance UHC Medicare Care Teams Pot Reliner Relationship Specialty Start Date End Date Jade Reece MD 1963 [facility] [place] [address] PCP - General Internal Medicine 10/21/21
--- OUTSIDE RECORDS SUMMARY | 2025-04-10 10:34 | XMS_ITS | Clinical Summary ---
Author Organization [facility] [address] [place] [address] [place] [address] Phone Care Team Providers Care Prorate Clerk Name Role Phone Jade Reece MD Primary Care Provider Surgical History Surgery Date Site/Laterality Comments COLONOSCOPY 12/27/2007 PROCEDURE: [place] COLONOSCOPY FLX DX W/COLLJ SPEC WHEN PFRMD; [...] is recommended in 1 year. Mammo Location: [facility], [address] [place] [address], [address], . -------- FINAL REPORT -------- Dictated By: Maliha Toney Dictated Date: 10/21/2024 08:49 ET Assigned Physician: Maliha Toney Reviewed and Electronically Signed By: Maliha Toney Signed Date: 10/21/2024 08:51 ET Workstation ID: [id number] Transcribed By: Self Edit Transcribed Date: 10/21/2024 [...] is recommended in 1 year. Mammo Location: [facility], [address] [place] [address], [address], . -------- FINAL REPORT -------- Dictated By: Maliha Toney Dictated Date: 10/21/2024 08:49 ET Assigned Physician: Maliha Toney Reviewed and Electronically Signed By: Maliha Toney Signed Date: 10/21/2024 08:51 ET Workstation ID: [id number] Transcribed By: Self Edit Transcribed Date: 10/21/2024 08:49 ET Jade Reece MD IMG BI PROCEDURES Final Resul t from Last 3 Months or Most Recently Relevant to Health Maintenance Insurance [place] [facility] [place] [id number] Care Teams Prorate Clerk Relationship Specialty Start Date End Date Jade Reece MD PCP - General Internal Medicine 07/08/24
--- OUTSIDE RECORDS SUMMARY | 2025-04-10 10:34 | XMS_ITS | Encounter Summary ---
Author Organization [facility] Address [address] [place] [address] Phone Care Team Providers Care Digital Marketing Project Manager Name Role Phone Jade Reece MD Primary Care Provider [phone] Encounter Details Date Type Department Care Team (Late st Contact Info) Description 12/31/2021 Documentation Only [facility], [address] [place] [address] Betty Judge [address] [place] [address] Social History Tobacco Use Types [...] on filedocumented in this encounter Care Teams Digital Marketing Project Manager Relationship Specialty Start Date End Date Jade Reece MD 1963 [facility] [place] [place] [address] PCP - General Internal Medicine 10/21/21 documented as of this encounter
--- OUTSIDE RECORDS SUMMARY | 2025-04-10 10:34 | XMS_ITS | Encounter Summary ---
Author Organization [facility] Address [address] [place] [address] Phone Care Team Providers Care Open Hearth Melter Name Role Phone Jade Reece MD Primary Care Provider [phone] Encounter Details Date Type Department Care Team (Late st Contact Info) Description 10/21/2021 Documentation Only [facility], [address] [place] [address] Betty Judge [address] [place] [address] Social History Tobacco Use Types [...] on filedocumented in this encounter Care Teams Open Hearth Melter Relationship Specialty Start Date End Date Jade Reece MD 1963 [facility] [place] [address] PCP - General Internal Medicine 10/21/21 documented as of this encounter
--- OUTSIDE RECORDS SUMMARY | 2025-04-10 10:34 | XMS_ITS | Patient Health Record ---
Author Organization [facility] Address [address] [place] [address] Care Team Providers Care Clerical Secretary Name Role Phone Jade Reece MD Primary Care Provider Waldemar Perales [phone] Allergies Allergen (clinical drug ingredient) Drug/Non Drug Allergy documented on EMR Reaction Allergy Type Onset Date Status rosuvastatin Rosuvastatin Unknown Drug Allergy A ctive amlodipine amLODIPine Unknown Drug Allergy Activ e Results Component Value Reference Range Notes Prothrombin Time INR Reviewed date:02/19/2025 09:54:37 PM Interpretation: Performing Lab:[address] [address] Notes/Report: Prothrombin Time 11.1 10.9-12.4 [employer] [...] Antibody Reviewed date:02/19/2025 09:54:29 PM Interpretation: Performing Lab:[facility], [address] [place] [phone] Notes/Report: Smooth Muscle Antibody <20 <20 U [...] type 1. THIS TEST WAS PERFORMED AT: [employer] [id number] [place] [phone] LASHANDA JACOBO MD,PHD Complete Blood Count Auto Di ff Reviewed date:02/19/2025 10:00:45 PM Interpretation: Performing Lab:[facility], [address] [place] [phone] Notes/Report: White Blood Count 6.6 4.8-10.8 X10*3/uL [...] te Reviewed date:02/19/2025 10:00:25 PM Interpretation: Performing Lab:[facility], [address] [place] [phone] Notes/Report: Erythrocyte Sedimentation Rate 18 0-20 MM/HR Patients with polycythemia and many hemoglobin abnormalities may have depressed sed rates whereas patients with anemia may have elevated sed rates. Liver Panel Reviewed date:02/21/2025 07:46:14 PM Interpretation: Performing Lab:[address] [address] Notes/Report: Bilirubin Total 0.5 0.0-1.0 mg/dL Bilirubin Direct 0.2 0.0-0.5 mg/dL Aspartate Amino Transferase 73 5-31 U/L Alanine Aminotransferase 91 0-31 U/L Total Protein 8.0 6.5-8.0 g/dL Albumin Level 4.6 3.5-5.0 g/dL Alkaline Phosphatase 174 39-117 U/L Immunoglobulin G Reviewed date:02/19/2025 10:00:16 PM Interpretation: Performing Lab:[address] [address] Notes/Report: Immunoglobulin G 3732 247-9587 mg/dL THIS TEST WAS PERFORMED AT: [employer] [address] [address] DIANN CHAIREZ MD MARIEL Reflex Titer and Pattern Reviewed date:02/21/2025 08:13:41 PM Interpretation: Performing Lab:[address] [address] Notes/Report: Anti Nuclear Antibody Screen POSITIVE NEGATIVE MARIEL IFA is a first line screen for detecting the presence of up to approximately 150 autoantibodies in various autoimmune diseases. A positive MARIEL IFA result is suggestive of autoimmune disease and reflexes to titer and pattern. Further laboratory testing may be considered if clinically indicated. For additional information, please refer to http://education.[employer].FiFully/faq/FA Q102 (This link is being provided for informational/ [...] AC-3: [employer] International Consensus on MARIEL Patterns (https://doi.org/05.10jfzl-0505-6338) MARIEL Titer 2 1:1280 Reference Range <1:40 Negative 1:40-1:80 Low Antibody Level >1:80 Elevated Antibody Level MARIEL Pattern 2 Nuclear, Homogeneous Homogeneous pattern is associated with systemic lupus erythematosus (SLE), drug-induced lupus and juvenile idiopathic arthritis. AC-1: Homogeneous International Consensus on MARIEL Patterns (https://doi.org/05.10jtsu-6131-9064) MARIEL Titer 3 1:320 Reference Range <1:40 [...] [employer]led International Consensus on MARIEL Patterns (https://doi.org/05.10afak-1113-5022) THIS TEST WAS PERFORMED AT: [facility] [address] [place] [phone] DIANN CHAIREZ MD Reason For Referral No [...] Risk Notes Problem Elevated liver enzymes level (428543683) Elevated liver function tests (R79.89) Active confirmed Problem Gallstones (241205815) Gallstones (K80.20) Active confirmed Problem Raised antinuclear antibody (042629178) MARIEL positive (R76.8) Active confirmed Vital Signs Temperature 98.2 degrees Fahrenheit 02/08/2025 Blood pressure diastolic 01 mm Hg 02/08/2025 Height 63 in 02/08/2025 Blood pressure systolic 001 mm Hg 02/08/2025 Weight 137.8 lbs 02/08/2025 BMI 24.41 kg/m2 02/08/2025 Encounters Encounter Location Date Provider Diagnosis [facility] [address] [place] [address] 02/08/2025 Waldemar Castañeda Elevated liver function tests R79.89 ; MARIEL positive R76.8 and Gallstones K80.20 [facility] [address] [place] [address] 02/21/2025 Waldemar Castañeda Assessments Encounter Date Diagnosis [...] with you about a referral to a Art Historian. We did have a detailed discussion today [...] with you about a referral to a Art Historian. We did have a detailed discussion today [...] with you about a referral to a Art Historian. We did have a detailed discussion today [...] Insured Coverage Start Date Coverage End Date [facility] [address] [address] [place] [address] [id number] TYRONMELISA PEARSON Self - patient is the insured MEDICAID OF [facility] [address] [place] [address] [id number] TYRONMELISA PEARSON Self - patient is the insured 7 Medical (General) History Medical History History ICD Code Hypothyroidism Hypertension Hyperlipidemia Reported CREST syndrome with Raynaud's + MARIEL Osteoporosis Asymptomatic gallstones reviewed at the 01/2025 OV Slight elevation of the liver enzymes Negative colonoscopy with Dr. Frazier in - -no adenomas Surgical History Surgery Date(Month/Year) septoplasty
== END 2025-04-10 09:59 | disposition home or self-care (01) ==
LOC: HO.HMCC 09:03
PROVIDERS: PCP Internal Medicine; Visit Provider Internal Medicine
DX: I10 Essential (primary) hypertension (principal); E78.5 Hyperlipidemia, unspecified; E03.9 Hypothyroidism, unspecified; N64.9 Disorder of breast, unspecified

== ENCOUNTER → 2025-04-10 09:02 | Outpatient (BNVA) | payer MEDICARE, MEDICAID, SELFPAY | PROVIDERS: PCP Internal Medicine; Visit Provider Internal Medicine | DX: I10 Essential (primary) hypertension (principal); E78.5 Hyperlipidemia, unspecified; E03.9 Hypothyroidism, unspecified; N64.9 Disorder of breast, unspecified | CPT/HCPCS: 99212 ==

== ENCOUNTER 2025-04-17 07:33 | Outpatient (REF) | payer MEDICARE, MEDICAID, SELFPAY ==
--- OUTSIDE RECORDS SUMMARY | 2025-04-17 07:37 | XMS_ITS | Clinical Summary ---
Author Organization [facility] [address] [place] [address] [place] [address] Phone Care Team Providers Care Federal Judicial Law Clerk Name Role Phone Jade Reece MD Primary Care Provider [phone] Surgical History Surgery Date Site/Laterality Comments COLONOSCOPY 12/27/2007 PROCEDURE: [place] COLONOSCOPY FLX DX W/COLLJ SPEC WHEN PFRMD; [...] is recommended in 1 year. Mammo Location: [facility], [address] [place] [address], [address], . -------- FINAL REPORT -------- Dictated By: Maliha Toney Dictated Date: 10/21/2024 08:49 ET Assigned Physician: Maliha Toney Reviewed and Electronically Signed By: Maliha Toney Signed Date: 10/21/2024 08:51 ET Workstation ID: [id number] Transcribed By: Self Edit Transcribed Date: 10/21/2024 [...] is recommended in 1 year. Mammo Location: [facility], [address] [place] [address], [address], . -------- FINAL REPORT -------- Dictated By: Maliha Toney Dictated Date: 10/21/2024 08:49 ET Assigned Physician: Maliha Toney Reviewed and Electronically Signed By: Maliha Toney Signed Date: 10/21/2024 08:51 ET Workstation ID: [id number] Transcribed By: Self Edit Transcribed Date: 10/21/2024 08:49 ET Jade Reece MD IMG BI PROCEDURES Final Resul t from Last 3 Months or Most Recently Relevant to Health Maintenance Insurance [place] - [place] [facility] [place] [id number] Care Teams Federal Judicial Law Clerk Relationship Specialty Start Date End Date Jade Reece MD PCP - General Internal Medicine 07/08/24
--- OUTSIDE RECORDS SUMMARY | 2025-04-17 07:37 | XMS_ITS | Encounter Summary ---
Author Organization [facility] Address [address] [place] [address] Phone Care Team Providers Care Marketing Writer Name Role Phone Jade Reece MD Primary Care Provider [phone] Encounter Details Date Type Department Care Team (Late st Contact Info) Description 12/31/2021 Documentation Only [facility], [address] [place] [address] Betty Judge [address] [place] [address] Social History Tobacco Use Types [...] on filedocumented in this encounter Care Teams Marketing Writer Relationship Specialty Start Date End Date Jade Reece MD 1963 [facility] [place] [address] PCP - General Internal Medicine 10/21/21 documented as of this encounter
--- OUTSIDE RECORDS SUMMARY | 2025-04-17 07:37 | XMS_ITS | Patient Health Record ---
Author Organization [facility] Address [address] [place] [address] Care Team Providers Care Giving Officer Name Role Phone Jade Reece MD Primary Care Provider Waldemar Perales [phone] Allergies Allergen (clinical drug ingredient) Drug/Non Drug Allergy documented on EMR Reaction Allergy Type Onset Date Status rosuvastatin Rosuvastatin Unknown Drug Allergy A ctive amlodipine amLODIPine Unknown Drug Allergy Activ e Results Component Value Reference Range Notes Prothrombin Time INR Reviewed date:02/19/2025 09:54:37 PM Interpretation: Performing Lab:[address] [address] Notes/Report: Prothrombin Time 11.1 10.9-12.4 SEC INTERNATIONAL [...] Antibody Reviewed date:02/19/2025 09:54:29 PM Interpretation: Performing Lab:[facility], [address] [place] [phone] Notes/Report: Smooth Muscle Antibody <20 <20 U [...] type 1. THIS TEST WAS PERFORMED AT: [facility] [id number] [place] [phone] LASHANDA JACBOO MD,PHD Complete Blood Count Auto Di ff Reviewed date:02/19/2025 10:00:45 PM Interpretation: Performing Lab:[facility], [address] [place] [phone] Notes/Report: White Blood Count 6.6 4.8-10.8 X10*3/uL [...] te Reviewed date:02/19/2025 10:00:25 PM Interpretation: Performing Lab:[facility], [address] [place] [phone] Notes/Report: Erythrocyte Sedimentation Rate 18 0-20 MM/HR Patients with polycythemia and many hemoglobin abnormalities may have depressed sed rates whereas patients with anemia may have elevated sed rates. Liver Panel Reviewed date:02/21/2025 07:46:14 PM Interpretation: Performing Lab:[address] [address] Notes/Report: Bilirubin Total 0.5 0.0-1.0 mg/dL Bilirubin Direct 0.2 0.0-0.5 mg/dL Aspartate Amino Transferase 73 5-31 U/L Alanine Aminotransferase 91 0-31 U/L Total Protein 8.0 6.5-8.0 g/dL Albumin Level 4.6 3.5-5.0 g/dL Alkaline Phosphatase 174 39-117 U/L Immunoglobulin G Reviewed date:02/19/2025 10:00:16 PM Interpretation: Performing Lab:[address] [address] Notes/Report: Immunoglobulin G 0346 804-7546 mg/dL THIS TEST WAS PERFORMED AT: [facility] [address] [address] DIANN CHAIREZ MD MARIEL Reflex Titer and Pattern Reviewed date:02/21/2025 08:13:41 PM Interpretation: Performing Lab:[address] [address] Notes/Report: Anti Nuclear Antibody Screen POSITIVE NEGATIVE MARIEL IFA is a first line screen for detecting the presence of up to approximately 150 autoantibodies in various autoimmune diseases. A positive MARIEL IFA result is suggestive of autoimmune disease and reflexes to titer and pattern. Further laboratory testing may be considered if clinically indicated. For additional information, please refer to http://education.[facility].Wiren Board/faq/FA Q1 (This link is being provided for informational/ [...] AC-3: Centromere International Consensus on MARIEL Patterns (https://doi.org/05.10mykh-6081-7585) MARIEL Titer 2 1:1280 Reference Range <1:40 Negative 1:40-1:80 Low Antibody Level >1:80 Elevated Antibody Level MARIEL Pattern 2 Nuclear, Homogeneous Homogeneous pattern is associated with systemic lupus erythematosus (SLE), drug-induced lupus and juvenile idiopathic arthritis. AC-1: Homogeneous International Consensus on MARIEL Patterns (https://doi.org/05.10osxy-4482-3778) MARIEL Titer 3 1:320 Reference Range <1:40 [...] Fine Speckled International Consensus on MARIEL Patterns (https://doi.org/05.10jcys-5586-1423) THIS TEST WAS PERFORMED AT: [facility] [address] [place] [phone] DIANN CHAIREZ MD Reason For Referral No [...] Risk Notes Problem Elevated liver enzymes level (983118409) Elevated liver function tests (R79.89) Active confirmed Problem Gallstones (244752563) Gallstones (K80.20) Active confirmed Problem Raised antinuclear antibody (886825409) MARIEL positive (R76.8) Active confirmed Vital Signs Temperature 98.2 degrees Fahrenheit 02/08/2025 Blood pressure diastolic 01 mm Hg 02/08/2025 Height 63 in 02/08/2025 Blood pressure systolic 001 mm Hg 02/08/2025 Weight 137.8 lbs 02/08/2025 BMI 24.41 kg/m2 02/08/2025 Encounters Encounter Location Date Provider Diagnosis [facility] [address] [place] [address] 02/08/2025 Waldemar Castañeda Elevated liver function tests R79.89 ; MARIEL positive R76.8 and Gallstones K80.20 [facility] [address] [place] [address] 02/21/2025 Waldemar Castañeda Assessments Encounter Date Diagnosis [...] with you about a referral to a Technical Proposal Writer. We did have a detailed discussion today [...] with you about a referral to a Technical Proposal Writer. We did have a detailed discussion today [...] with you about a referral to a Technical Proposal Writer. We did have a detailed discussion today [...] Insured Coverage Start Date Coverage End Date [facility] [address] [address] [place] [address] [id number] TYRONMELISA PEARSON Self - patient is the insured MEDICAID OF [facility] [address] [place] [address] [id number] TYRONMELISA PEARSON Self - patient is the insured 7 Medical (General) History Medical History History ICD Code Hypothyroidism Hypertension Hyperlipidemia Reported CREST syndrome with Raynaud's + MARIEL Osteoporosis Asymptomatic gallstones reviewed at the 01/2025 OV Slight elevation of the liver enzymes Negative colonoscopy with Dr. Frazier in - -no adenomas Surgical History Surgery Date(Month/Year) septoplasty
--- OUTSIDE RECORDS SUMMARY | 2025-04-17 07:37 | XMS_ITS | Clinical Summary ---
Author Organization [facility], Address [address] [place] [address] [place] [address] Phone Care Team Providers Care Perinatal Director Name Role Phone Jade Reece MD Primary Care Provider [phone] Allergies No known active allergies Medications rosuvastatin [...] this topic Insurance UHC Medicare Care Teams Perinatal Director Relationship Specialty Start Date End Date Jade Reece MD 1963 [facility] [place] [address] PCP - General Internal Medicine 10/21/21
--- OUTSIDE RECORDS SUMMARY | 2025-04-17 07:37 | XMS_ITS | Encounter Summary ---
Author Organization [facility] Address [address] [place] [address] Phone Care Team Providers Care Subassembler Name Role Phone Jade Reece MD Primary Care Provider [phone] Encounter Details Date Type Department Care Team (Late st Contact Info) Description 10/21/2021 Documentation Only [facility], [address] [place] [address] Betty Judge [address] [place] [address] Social History Tobacco Use Types [...] on filedocumented in this encounter Care Teams Subassembler Relationship Specialty Start Date End Date Jade Reece MD 1963 [facility] [place] [address] PCP - General Internal Medicine 10/21/21 documented as of this encounter
[2025-04-17 10:59] LABS: Anion Gap 13 (12-20); Blood Urea Nitrogen 21 mg/dL (9-16); Calcium 9.7 mg/dL (8.4-10.2); Carbon Dioxide 27 mmol/L (22-29); Chloride 100 mmol/L (96-108); Estimated Glomerular Filt Rate > 60; Potassium 4.5 mmol/L (3.3-5.1); Sodium 135 mmol/L (135-145)
== END 2025-04-17 07:34 | disposition home or self-care (01) ==
LOC: HO.HMGCLDS 07:33
PROVIDERS: PCP Internal Medicine; Visit Provider Internal Medicine
DX: I10 Essential (primary) hypertension (principal)
CPT/HCPCS: 36415; 80048

== ENCOUNTER 2025-05-25 13:45 | Outpatient (AMB) | payer MEDICARE, MEDICAID, SELFPAY ==
[2025-05-25 13:54] VITALS: BP 130/80; PULSE 82; RESP 17; TEMP 36.7; O2SAT 98; BMI 24.7
--- NOTE | 2025-05-25 13:54 | MHC.PC.OV ---
Vital Signs 05/25/25 13:54 05/25/25 15:05 Height 5 ft 2 in Weight 135 lb BMI 24.7 BP 130/80 135/80 Blood Pressure Location Lt brachial Rt brachial Position Sitting Sitting Respiration 17 Pulse 82 Pulse Source Pulse Oximeter Temp 98.0 F Temp Source Oral Pulse Oximetry (%) 98 Oxygen Delivery Method Room Air Intake Visit Reasons: L shoulder blade pain Intake Note: Pt is here today c/o Lt shoulder blade pain Allergies rosuvastatin (From Crestor) Adverse Reaction (Intermediate, Verified 05/25/25 13:55) Abdominal Pain amlodipine Adverse Reaction (Verified 05/25/25 13:55) face turned red, dizziness headaches Tobacco use date assessed: 05/25/25 Fall risk assessment: No Falls in past year Last assessed Fall Risk: 05/25/25 Dental Screening Dental Screen Date: 05/25/25 Did you have a dental visit in the last 12 months?: Yes Did you have a dental problem in the last 6 months where you did not have access to dental care?: No Was dental information given to patient?: Patient has dentist HPI L shoulder blade pain HPI Details Pt presents with a complaint an episode of L scapular pain constant positional for 3 days resolved after Advil. Patient denies shortness or breath chest pain cough. She complains of persistent for a year left nipple tenderness to touch with intermittent erythema but no nipple discharge, ulceration or bleeding. Patient had a normal mammogram in September. She requested to see a breast surgeon and has an appointment scheduledwith Dr. Delcid. Hypertension is controlled on lisinopril. [facility] Medical History (Updated 05/25/25 @ 15:08 by Jade Reece MD) Abnormal nipple Abnormal colonoscopy Pre-op examination Annual physical exam Biliary obstruction Autoimmune hepatitis Hypothyroidism Calcific tendinitis of right shoulder Anxiety Hyponatremia Eczema Rosacea Hypertension Dysplastic nevi Breast pain, left Elevated LFTs Hyperlipidemia Lumbar radiculopathy CREST syndrome Osteoporosis Surgical History H/O colonoscopy History of nasal septoplasty Family History Father No problems noted. Mother No problems noted. Daughter No problems noted. Daughter No problems noted. Daughter No problems noted. 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 1. Little interest or pleasure in doing things: not at all 2. Feeling down, depressed, or hopeless: not at all 3. Trouble falling or staying asleep, or sleeping too much: not at all 4. Feeling tired or having little energy: not at all 5. Poor appetite or overeating: not at all 6. Feeling bad about yourself - or that you are a failure or have let yourself or your family down: not at all 7. Trouble concentrating on things, such as reading the newspaper or watching television: not at all 8. Moving or speaking so slowly that other people could have noticed. Or the opposite - being so fidgety or restless that you have been moving around a lot more than usual: not at all 9. Thoughts that you would be better off or of hurting yourself in some way: not at all Total score: 0 Depression Screening Interpretation: Negative Depression Screening Done: Yes Source: Developed by Drs. Waldemar Buchanan, Robyn Burr, Jalil Sam and colleagues, with an educational mp from [employer]. Thrive Questionnaire Date Thrive assessed: 03/02/24 I am a: Patient What is your living situation today?: I have a steady place to live Within the past 12 months, did the food you bought not last and you didn't have the money to get more?: Often true Within the past 12 months, did you worry whether your food would run out before you got money to buy more?: Never true Do you have trouble paying for medicines?: No Do you have trouble getting transportation to medical appointments?: No Do you have trouble paying your heating and electricity bill?: No Do you have trouble taking care of your child, family member or friend?: No Do you have trouble with day-to-day activities such as bathing, preparing meals, shopping, managing finances, etc.?: No Are you currently unemployed and looking for a job?: No Are you interested in more education?: No Please select the resources that you would like help with: None Currently or been in a relationship where the following occur: No concerns reported THRIVE Score: 1 AUDIT C Alcohol Use Questionnaire (AUDIT-C) 1. How often do you have a drink containing alcohol?: Never 3. How often do you have six or more drinks on one occasion?: Never Total Score: 0 DONI-7 AMB Questionnaire DONI-7 Date DONI - 7 assessed: 04/10/25 Feeling nervous, anxious, or on edge: 0 = Not at all Not being able to stop or control worryin = Not at all Worrying too much about different things: 0 = Not at all Trouble relaxin = Not at all Being so restless that it is hard to sit still: 0 = Not at all Becoming easily annoyed or irritable: 0 = Not at all Feeling afraid as if something awful might happen: 0 = Not at all Total DONI-7 score (0-4 normal; 5-9 mild; 10-14 moderate; 15-21 severe): 0 Source: Developed by Drs. Waldemar Buchanan, Robyn Burr, Jalil Sam and colleagues, with an educational mp from [employer]. Physical exam (Primary Care) Vital Signs: Last Vital Signs Temp 98.0 F 05/25/25 13:54 Pulse 82 05/25/25 13:54 Resp 17 05/25/25 13:54 BP 174/84 H 05/25/25 13:54 Pulse Ox 98 05/25/25 13:54 Oxygen Delivery Method Room Air 05/25/25 13:54 BMI result Body Mass Index 24.7 Tobacco/Smoking Status: Tobacco use Status Tobacco use date assessed 05/25/25 05/25/25 13:57 Patient Tobacco Use Status Never used Tobacco 05/25/25 13:57 e-Cigarette/Vaping Use Never Used 05/25/25 13:57 PHQ-9: PHQ-9 Score PHQ-9: Total score 0 05/25/25 13:57 Depression Screening Interpretation: Negative Thrive Assessment: Date of Thrive Assessment Date Thrive assessed 08/07/24 10/30/25 13:57 Currently or been in a relationship where the following occur: No concerns reported Const General: no acute distress HENMT Head: Yes normal to inspection Eyes General: appearance normal, both eyes and all related structures Neck Neck: Yes no lymphadenopathy and Yes supple Chest Breast/axilla inspection: normal inspection of the breasts Breast/axilla palpation: normal palpation of the breasts and no axillary lymphadenopathy Resp Effort & Inspection: normal respiratory effort Auscultation: clear to auscultation bilaterally Cardio Rhythm: regular rhythm Heart sounds: S1 normal heart sound present and S2 normal heart sound present Back/Spine/Pelvis Other: Paraspinal tenderness in upper and midthoracic region left more than right, there is no tenderness over scapular and no skin changes, full range of motion of both shoulders Coding Level of Care Code Est Pt Level 4 (19597) Diagnoses Pain of left scapula M89.8X1 Abnormal nipple N64.9 Hypertension I10 Assessment & Plan Assessment & Plan (1) Pain of left scapula: Code(s): M89.8X1 - Other specified disorders of bone, shoulder Category: Medical Plan: For musculoskeletal scapular pain supportive care discussed with the patient (2) Abnormal nipple: Comment: Nipple tenderness of Left breast, normal mammogram and ultrasound 01/2025 at [place] Code(s): N64.9 - Disorder of breast, unspecified Category: Medical Plan: Patient will follow-up with the surgeon (3) Hypertension: Comment: Amlodipine caused leg swelling Code(s): I10 - Essential (primary) hypertension Category: Medical Plan: Continue lisinopril. Patient was advised to add hydrochlorothiazide but she declined. She will monitor her blood pressure at home and report the readings
[2025-05-25 15:05] VITALS: BP 135/80
--- OUTSIDE RECORDS SUMMARY | 2025-05-25 16:47 | XMS_ITS | Patient Health Record ---
Author Organization [facility] Address [address] [place] [address] Care Team Providers Care Sash Finisher Name Role Phone Jade Reece MD Primary Care Provider Waldemar Perales [phone] Allergies Allergen (clinical drug ingredient) Drug/Non Drug Allergy documented on EMR Reaction Allergy Type Onset Date Status rosuvastatin Rosuvastatin Unknown Drug Allergy A ctive amlodipine amLODIPine Unknown Drug Allergy Activ e Results Component Value Reference Range Notes Prothrombin Time INR Reviewed date:02/19/2025 09:54:37 PM Interpretation: Performing Lab:[address] [address] Notes/Report: Prothrombin Time 11.1 10.9-12.4 SEC INTERNATIONAL [...] Antibody Reviewed date:02/19/2025 09:54:29 PM Interpretation: Performing Lab:[facility], [address] [place] [phone] Notes/Report: Smooth Muscle Antibody <20 <20 U [...] type 1. THIS TEST WAS PERFORMED AT: [employer] [id number] [place] [phone] LASHANDA JACOBO MD,PHD Complete Blood Count Auto Di ff Reviewed date:02/19/2025 10:00:45 PM Interpretation: Performing Lab:[facility], [address] [place] [phone] Notes/Report: White Blood Count 6.6 4.8-10.8 X10*3/uL [...] te Reviewed date:02/19/2025 10:00:25 PM Interpretation: Performing Lab:[facility], [address] [place] [phone] Notes/Report: Erythrocyte Sedimentation Rate 18 0-20 MM/HR Patients with polycythemia and many hemoglobin abnormalities may have depressed sed rates whereas patients with anemia may have elevated sed rates. Liver Panel Reviewed date:02/21/2025 07:46:14 PM Interpretation: Performing Lab:[address] [address] Notes/Report: Bilirubin Total 0.5 0.0-1.0 mg/dL Bilirubin Direct 0.2 0.0-0.5 mg/dL Aspartate Amino Transferase 73 5-31 U/L Alanine Aminotransferase 91 0-31 U/L Total Protein 8.0 6.5-8.0 g/dL Albumin Level 4.6 3.5-5.0 g/dL Alkaline Phosphatase 174 39-117 U/L Immunoglobulin G Reviewed date:02/19/2025 10:00:16 PM Interpretation: Performing Lab:[address] [address] Notes/Report: Immunoglobulin G 9076 178-8266 mg/dL THIS TEST WAS PERFORMED AT: [facility] [address] [address] DIANN CHAIREZ MD MARIEL Reflex Titer and Pattern Reviewed date:02/21/2025 08:13:41 PM Interpretation: Performing Lab:[address] [address] Notes/Report: Anti Nuclear Antibody Screen POSITIVE NEGATIVE MARIEL IFA is a first line screen for detecting the presence of up to approximately 150 autoantibodies in various autoimmune diseases. A positive MARIEL IFA result is suggestive of autoimmune disease and reflexes to titer and pattern. Further laboratory testing may be considered if clinically indicated. For additional information, please refer to http://education.[employer]/faq/FA Q170 (This link is being provided for informational/ [...] AC-3: Centromere International Consensus on MARIEL Patterns (https://doi.org/05.10jwko-6782-1534) MARIEL Titer 2 1:1280 Reference Range <1:40 Negative 1:40-1:80 Low Antibody Level >1:80 Elevated Antibody Level MARIEL Pattern 2 Nuclear, Homogeneous Homogeneous pattern is associated with systemic lupus erythematosus (SLE), drug-induced lupus and juvenile idiopathic arthritis. AC-1: Homogeneous International Consensus on MARIEL Patterns (https://doi.org/05.10zjwh-5641-0605) MARIEL Titer 3 1:320 Reference Range <1:40 [...] Fine Speckled International Consensus on MARIEL Patterns (https://doi.org/05.10wlup-2988-9816) THIS TEST WAS PERFORMED AT: [facility] [address] [place] [phone] DIANN CHAIREZ MD Reason For Referral No Information Medications Medication SIG (Take, Route, Frequency, Duration) Notes Start Date End Date Status Lisinopril 20 MG TAKE ONE TABLET BY M OUTH TWICE DAILY Oral; Duration: 90 Days Active Levothyroxine Sodium 25 MCG 1 tablet in the morning on an empty stomach Orally Once a day 02/08/2025 Active Omeprazole 40 MG TAKE ONE CAPSULE HEIDI LY Oral; Duration: 90 Days Active Ezetimibe 10 MG TAKE ONE TABLET CARMEN Y Oral; Duration: 90 Days Active Social History Tobacco Use: [...] Risk Notes Problem Elevated liver enzymes level (775436641) Elevated liver function tests (R79.89) Active confirmed Problem Gallstones (408298222) Gallstones (K80.20) Active confirmed Problem Raised antinuclear antibody (359563200) MARIEL positive (R76.8) Active confirmed Vital Signs Temperature 98.2 degrees Fahrenheit 02/08/2025 Blood pressure diastolic 01 mm Hg 02/08/2025 Height 63 in 02/08/2025 Blood pressure systolic 001 mm Hg 02/08/2025 Weight 137.8 lbs 02/08/2025 BMI 24.41 kg/m2 02/08/2025 Encounters Encounter Location Date Provider Diagnosis [facility] [address] [place] [address] 02/08/2025 Waldemar Castañeda Elevated liver function tests R79.89 ; MARIEL positive R76.8 and Gallstones K80.20 [facility] [address] [place] [address] 02/21/2025 Waldemar Castañeda Assessments Encounter Date Diagnosis [...] with you about a referral to a Behavioral Analyst. We did have a detailed discussion today [...] with you about a referral to a Behavioral Analyst. We did have a detailed discussion today [...] with you about a referral to a Behavioral Analyst. We did have a detailed discussion today [...] Insured Coverage Start Date Coverage End Date [facility] [address] [address] [place] [address] [id number] MELISA MUÑOZ Self - patient is the insured MEDICAID OF [facility] [address] [place] [address] [id number] TYRONMELISA PEARSON Self - patient is the insured 7 Medical (General) History Medical History History ICD Code Hypothyroidism Hypertension Hyperlipidemia Reported CREST syndrome with Raynaud's + MARIEL Osteoporosis Asymptomatic gallstones reviewed at the 01/2025 OV Slight elevation of the liver enzymes Negative colonoscopy with Dr. Frazier in - -no adenomas Surgical History Surgery Date(Month/Year) septoplasty
--- OUTSIDE RECORDS SUMMARY | 2025-05-25 16:47 | XMS_ITS | Clinical Summary ---
Author Organization [facility], Address [address] [place] [address] [place] [address] Phone Care Team Providers Care Brand Executive Name Role Phone Jade Reece MD Primary Care Provider Allergies No known active allergies Medications rosuvastatin [...] this topic Insurance UHC Medicare Care Teams Brand Executive Relationship Specialty Start Date End Date Jade Reece MD 1963 [facility] [place] [address] PCP - General Internal Medicine 10/21/21
--- OUTSIDE RECORDS SUMMARY | 2025-05-25 16:47 | XMS_ITS | Encounter Summary ---
Author Organization [facility] Address [address] [place] [address] Phone Care Team Providers Care Bellstand Attendant Name Role Phone Jade Reece MD Primary Care Provider Encounter Details Date Type Department Care Team (Late st Contact Info) Description 12/31/2021 Documentation Only [facility], [address] [place] [address] Betty Judge [address] [place] [address] Social History Tobacco Use Types [...] on filedocumented in this encounter Care Teams Bellstand Attendant Relationship Specialty Start Date End Date Jade Reece MD 1963 [facility] [place] [address] PCP - General Internal Medicine 10/21/21 documented as of this encounter
--- OUTSIDE RECORDS SUMMARY | 2025-05-25 16:47 | XMS_ITS | Encounter Summary ---
Author Organization [facility] Address [address] [place] [address] Phone Care Team Providers Care Extermination Inspector Name Role Phone Jade Reece MD Primary Care Provider [phone] Encounter Details Date Type Department Care Team (Late st Contact Info) Description 10/21/2021 Documentation Only [facility], [address] [place] [address] Betty Judge [address] [place] [address] Social History Tobacco Use Types [...] on filedocumented in this encounter Care Teams Extermination Inspector Relationship Specialty Start Date End Date Jade Reece MD 1963 [facility] [place] [facility] [place] [address] PCP - General Internal Medicine 10/21/21 documented as of this encounter
--- OUTSIDE RECORDS SUMMARY | 2025-05-25 16:47 | XMS_ITS ---
Author Name Prudencio Blevins Address Unknown Organization [facility] Care Team Providers Care Sale Professional Digital Marketing Name Role Phone Unavailable Primary Care Physician Unavailab le History Of Present Illness This is a 74 year old female who is a new patient who is being seen for a chief complaint of skin lesions.Location: right anterior neck and right clavicular skinQuality: itchyReason for Visit: evaluation and managementPertinent Negatives: no history of squamous cell carcinoma, no family history of melanoma, and no family history of non-melanoma skin cancerAdditional History: Patient reports skin lesion on the right clavicle has been treated before ( reports scrap and burn procedure ) ED&C ,the skin lesion right above has not been treated and has been present for about 1 year. Present with cousin ( Yanick ) here to interpret Medications Medication Generic Name RxNorm Strength Strength Unit Route Dose Dose Form Frequency Date Started Date Ended Status Indication Sig ezetimibe 697417 10 mg Oral 1 table t QD active levothyroxi ne 177511 50 mcg Oral 1 table t QD active lisinopril 500997 20 mg Oral 1 table t QD active omeprazole 284095 40 mg Oral 1 capsu le,de layed relea se (ente latoya coate d) QD active Problems Problem Code Type Status Date of Diagnosis Date of Resolution Neoplasm of uncertain behavior of skin (disorder) 68380063(S NOMED) Diagnosis active 05/25/2025 Inflamed seborrheic keratosis (disorder) 295658338( SNOMED) Diagnosis active 05/25/2025 Inflamed seborrheic keratosis L82.0(ICD- 10) Diagnosis active 07/16/2020 Other seborrheic keratosis L82.1(ICD- 10) Diagnosis active 07/16/2020 History of hyperthyroidism (situation) 594356727( SNOMED) Problem active Hypercholesterolemia (disorder) 19455231(S NOMED) Problem active Results No data Encounters Service provided at [facility], [address] [place] [address], [address], [place], [place] [id number]. Office phonenumber is [phone]. Office fax number is [phone]. 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) [facility] 05/25/2025 13:30:00 [place] NI Reason For Referral No data Procedures Procedure Date Documentation of current medications (pr ocedure) 05/25/2025 12:00 am UTC Cryotherapy of skin lesion with liquid n itrogen (procedure) 05/25/2025 12:00 am UTC Shave biopsy (procedure) 05/25/2025 12:0 0 am UTC Cryotherapy of skin lesion with liquid n itrogen (procedure) 07/16/2020 12:00 am UTC Documentation of past medical history (p rocedure) Review Of Systems Provider reviewed on May 25, 2025.A complete review of systems was performed and was notable for thyroid problems.No Problems With Healing, No Problems With Scarring (hypertrophic Or Keloid), No Problems With Bleeding, No Immunosuppression, No Hay Fever, No Chest Pain, No Fever Or Chills, No Night S weats, No Unintentional Weight Loss, No Sore Throat, No Blurry Vision, No Abdominal Pain, No BloodyStool, No Bloody Urine, No Joint Aches, No Muscle Weakness, No Neck Stiffness, No Headaches, No Seizures, No Shortness Of Breath, No Wheezing, No Anxiety, And No Depression. Assessment 1.Neoplasm of Uncertain BehaviorBiopsy by Shave Method: right clavicular neck.2.Irritated Seborrheic KeratosisLiquid Nitrogen: right clavicular skin; Number of freeze-thaw Cycles - 2 freeze-thaw cycles; Medical Necessity Justification (varies by insurance carrier and by region) - irritated, rubbingon clothing, and inflamed. Plan of Care No data Instructions No Data Social History Code Activity Start Date End Date 035896187 (SNOMED) Never smoker Sex female Sexual orientation Unspecified Gender identity Unspecified Vital Signs No data
--- OUTSIDE RECORDS SUMMARY | 2025-05-25 16:47 | XMS_ITS | Clinical Summary ---
Author Organization [facility] [address] [facility] Address [address] [place], [place] Phone Care Team Providers Care Highway Engineer Name Role Phone Jade Reece MD Primary Care Provider [phone] Encounters Date Type Department Care Team Description 05/18/2025 Telephone Obstetrics and Gynecology [facility] [place] [address] [place] [address] Meghan Dawson CNM from Last 3 Months Surgical History Surgery Date Site/Laterality Comments COLONOSCOPY 12/27/2007 PROCEDURE: [place] COLONOSCOPY FLX DX W/COLLJ SPEC WHEN PFRMD; [...] Health Maintenance Due Date Last Done Comments Colorectal Cancer Screening: Colonoscopy 1948 DTaP,Tdap,and Td Vaccines (1 - Tdap) 1967 Hepatitis A Vaccines (1 of 2 - Risk 2-dose series) 1967 Pneumococcal Vaccine: 50+ Years (1 of 1 - PCV) 1998 Zoster Vaccines (1 of 2) 1998 Hepatitis B Vaccines (1 of 3 - Risk 3-dose series) 2008 Cholesterol Screening (Lipid Panel) 07/05/2022 Falls Risk Assessment 07/05/2022 Hepatitis C Screening 07/05/2022 Osteoporosis Screening (Bone Density Screening) 07/05/2022 Social Influencers of Health Screening 07/05/2022 RSV Immunization Adult Patients (1 - 1-dose 75+ series) 2023 Depression Screening 2024 Hypertension/CHF/CAD Annual BMP Blood Test 10/20/2024 COVID-19 Vaccine ( season) 2025 10/21/2020, 09/30/2020 Influenza Vaccine (#1) [...] is recommended in 1 year. Mammo Location: [facility], [address] [place] [address], [phone], . -------- FINAL REPORT -------- Dictated By: Maliha Toney Dictated Date: 10/21/2024 08:49 ET Assigned Physician: Maliha Toney Reviewed and Electronically Signed By: Maliha Toney Signed Date: 10/21/2024 08:51 ET Workstation ID: [id number] Transcribed By: Self Edit Transcribed Date: 10/21/2024 [...] is recommended in 1 year. Mammo Location: [facility], [address] [place] [address], [address], . -------- FINAL REPORT -------- Dictated By: Maliha Toney Dictated Date: 10/21/2024 08:49 ET Assigned Physician: Maliha Toney Reviewed and Electronically Signed By: Maliha Toney Signed Date: 10/21/2024 08:51 ET Workstation ID: [id number] Transcribed By: Self Edit Transcribed Date: 10/21/2024 08:49 ET Jade Reece MD IMG BI PROCEDURES Final Resul t from Last 3 Months or Most Recently Relevant to Health Maintenance Insurance [place] - [place] [facility] [place] [id number] [address] Engineer Relationship Specialty Start Date End Date Jade Reece MD PCP - General Internal Medicine 07/08/24
== END 2025-05-25 15:09 | disposition home or self-care (01) ==
LOC: HO.HMCC 13:46
PROVIDERS: PCP Internal Medicine; Visit Provider Internal Medicine
DX: M89.8X1 Other specified disorders of bone, shoulder (principal); N64.9 Disorder of breast, unspecified; I10 Essential (primary) hypertension

== ENCOUNTER → 2025-05-25 13:45 | Outpatient (BNVA) | payer MEDICARE, MEDICAID, SELFPAY | PROVIDERS: PCP Internal Medicine; Visit Provider Internal Medicine | DX: M89.8X1 Other specified disorders of bone, shoulder (principal); N64.9 Disorder of breast, unspecified; I10 Essential (primary) hypertension | CPT/HCPCS: 99212 ==

== ENCOUNTER 2025-06-29 08:45 | Outpatient (AMB) | payer MEDICARE, MEDICAID, SELFPAY ==
--- NOTE | 2025-06-29 08:46 | A.OFFVIS_ITS ---
Vital Signs 06/29/25 08:52 Height 5 ft 2 in Weight 135 lb BMI 24.7 Intake Visit Reasons: Disorder of breast, fernando per PCP Intake Note: Patient presents for an assessment for left breast pain and left shoulder pain. Pt c/o; reports left breast pain radiates towards shoulder. Steaming Cabinet Tender Required: Yes Steaming Cabinet Tender Language: Turkish Steaming Cabinet Tender Services: Steaming Cabinet Tender Offered & Declined Accompanied by: Daughter Allergies rosuvastatin (From Crestor) Adverse Reaction (Intermediate, Verified 06/29/25 08:51) Abdominal Pain amlodipine Adverse Reaction (Verified 06/29/25 08:51) face turned red, dizziness headaches HPI HPI Disorder of breast, fernando per PCP: Details: [age] year female referred for left breast pain. She actually states that she has had this sharp pain on the nipple-areolar skin area, as well as along the chest wall on the left side all the way to the back. This has been ongoing on and off for about 3 months. She does not think this is pruritic in nature. She had a mammogram last September, which was benign and had a BI-RADS 1 classification. She does not feel any mass on the breast Hemorrhoidal tissue was at age of 8. Her 1st was the age of 18. She had a pregnancies with 1 miscarriage. She had menopause in her 50s. [facility] Medical History Abnormal nipple Abnormal colonoscopy Pre-op examination Annual physical exam Biliary obstruction Autoimmune hepatitis Hypothyroidism Calcific tendinitis of right shoulder Anxiety Hyponatremia Eczema Rosacea Hypertension Dysplastic nevi Breast pain, left Elevated LFTs Hyperlipidemia Lumbar radiculopathy CREST syndrome Osteoporosis Surgical History H/O colonoscopy History of nasal septoplasty Family History Father No problems noted. Mother No problems noted. Daughter No problems noted. Daughter No problems noted. Daughter No problems noted. 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 Cognitive needs: No Hearing needs: No Vision needs: Yes Review of Systems Const Denies chills and Denies fever(s) Card Denies chest pain, Denies dyspnea and Denies dyspnea on exertion Resp Denies cough, Denies dyspnea and Denies dyspnea on exertion GI Denies hematochezia and Denies change in bowel habits Denies hematuria Musc Denies back pain and Denies limited range of motion Neuro Denies focal weakness and Denies convulsions Psych Denies depression and Denies mood swings Physical Exam Vital Signs: BMI result Body Mass Index 24.7 Const General: comfortable and no acute distress Orientation/consciousness: patient oriented x3 Neck Neck: Yes no lymphadenopathy Chest Other: No palpable breast masses, no axillary lymphadenopathy, no nipple or skin lesi ons, no nipple discharge Resp Auscultation: clear to auscultation bilaterally Cardio Rhythm: regular rhythm GI Palpation (GI): Soft to palpation, nontender and no guarding Neuro General: patient oriented x3 Assessment & Plan Assessment & Plan (1) Breast pain, left: Code(s): N64.4 - Mastodynia Category: Medical Plan: She describes left breast brain mostly on the skin of the nipple-areolar complex, as well as on the chest wall on the left side all the way to the back. I do not feel any breast mass. Furthermore, her last mammogram in September, does not suggest any breast lesion I do not think that she has any surgical she is currently. She may benefit from NSAIDs for mastodynia. Part of her symptoms may be because of rib pain as well. Her daughter does state that she is scheduled for a repeat mammogram later this month. I will also review this. She does not seem to be at high risk for breast cancer. They are welcome to follow up with me on a PRN basis as well. Coding Level of Care Code New Pt Level 3 (48952) Diagnoses Breast pain, left N64.4
[2025-06-29 08:52] VITALS: BMI 24.7
--- OUTSIDE RECORDS SUMMARY | 2025-06-29 09:29 | XMS_ITS | Patient Health Record ---
Author Organization [facility] Address [address] [place] [address] Care Team Providers Care Erp Engineer Name Role Phone Jade Reece MD Primary Care Provider Waldemar Perales [phone] Allergies Allergen (clinical drug ingredient) Drug/Non Drug Allergy documented on EMR Reaction Allergy Type Onset Date Status amlodipine amLODIPine Unknown Drug Allergy Activ e rosuvastatin Rosuvastatin Unknown Drug Allergy A ctive Results Component Value Reference Range Flag Notes Complete Blood Count Auto Di ff Reviewed date:02/19/2025 10:00:45 PM Interpretation: Performing Lab:[facility], [address] [place] [phone] Notes/Report: White Blood Count 6.6 4.8-10.8 X10*3/uL N Red Blood Count 4.49 4.20-5.50 X10*6/uL N Hemoglobin 13.3 12.0-16.0 g/dl N Hematocrit 41.8 37.0-47.0 % N Mean Corpuscular Volume 93.1 80.0-98.0 fL N Mean Corpuscular Hemoglobin 29.6 27.0-33.0 pg N Mean Corpuscular HGB Conc 31.8 31.0-35.0 g/dl N Red Cell Distribution Width 13.0 11.0-16.0 % N Platelet Count 239 160-400 X10*3/uL N Mean Platelet Volume 11.5 9.4-12.3 fL N Neutrophils Percent Auto 62.7 45-73 % N Imm Gran Pct Auto 0.2 0.0-0.4 % N Lymphocytes Percent Auto 23.5 20-40 % N Monocytes Percent Auto 8.0 2-11 % N Eosinophils Percent Auto 4.8 0-4 % H Basophils Percent Auto 0.8 0-2 % N NRBC Pct Auto 0.0 0.0-0.2 /100WBC N Neutrophils Absolute Auto 4.2 2.0-8.3 x10*3/uL N Imm Gran Abs Auto 0.01 0.00-0.03 X10*3/uL N Lymphocytes Absolute Auto 1.6 1.2-4.9 X10*3/uL N Monocytes Absolute Auto 0.5 0.1-1.2 X10*3/uL N Eosinophils Absolute Auto 0.3 0.0-0.4 X10*3/uL N Basophils Absolute Auto 0.1 0.0-0.2 X10*3/uL N NRBC Abs Auto 0.000 0.0-0.012 X10*3/uL N Erythrocyte Sedimentation Ra te Reviewed date:02/19/2025 10:00:25 PM Interpretation: Performing Lab:[facility], [address] [place] [phone] Notes/Report: Erythrocyte Sedimentation Rate 18 0-20 MM/HR N Patients with polycythemia and many hemoglobin abnormalities may have depressed sed rates whereas patients with anemia may have elevated sed rates. Liver Panel Reviewed date:02/21/2025 07:46:14 PM Interpretation: Performing Lab:[facility], [address] [place] [phone] Notes/Report: Bilirubin Total 0.5 0.0-1.0 mg/dL N Bilirubin Direct 0.2 0.0-0.5 mg/dL N Aspartate Amino Transferase 73 5-31 U/L H Alanine Aminotransferase 91 0-31 U/L H Total Protein 8.0 6.5-8.0 g/dL N Albumin Level 4.6 3.5-5.0 g/dL N Alkaline Phosphatase 174 39-117 U/L H Immunoglobulin G Reviewed date:02/19/2025 10:00:16 PM Interpretation: Performing Lab:[facility], [address] [place] [phone] Notes/Report: Immunoglobulin G 9770 052-9491 mg/dL N THIS TEST WAS PERFORMED AT: [facility] [address] [place] [phone] DIANN CHAIREZ MD MARIEL Reflex Titer and Pattern Reviewed date:02/21/2025 08:13:41 PM Interpretation: Performing Lab:[facility], [address] [facility], [place] [address] Notes/Report: Anti Nuclear Antibody Screen POSITIVE NEGATIVE A MARIEL IFA is a first line screen for detecting the presence of up to approximately 150 autoantibodies in various autoimmune diseases. A positive MARIEL IFA result is suggestive of autoimmune disease and reflexes to titer and pattern. Further laboratory testing may be considered if clinically indicated. For additional information, please refer to http://education.IKO System/faq/ JSO699 (This link is being provided for informational/ educational purposes only.) Anti Nuclear Antibody Titer 1:1280 A Reference Range <1:40 Negative 1:40-1:80 Low Antibody Level >1:80 Elevated Antibody Level Anti Nuclear Antibody Pattern Nuclear, Centromere A Centromere pattern is associated with limited cutaneous systemic sclerosis, CREST (Calcinosis, Raynaud's, Esophageal dysmotility, Sclerodactyly, Telangiectasia), primary biliary cholangitis (PBC), and other autoimmune diseases. AC-3: Centromere International Consensus on MARIEL Patterns (https://doi.org/10.1 515/kvjy-1184-7590) MARIEL Titer 2 1:1280 A Reference Range <1:40 Negative 1:40-1:80 Low Antibody Level >1:80 Elevated Antibody Level MARIEL Pattern 2 Nuclear, Homogeneous A Homogeneous pattern is associated with systemic lupus erythematosus (SLE), drug-induced lupus and juvenile idiopathic arthritis. AC-1: Homogeneous International Consensus on MARIEL Patterns (https://doi.org/10.1 515/crel-5012-1217) MARIEL Titer 3 1:320 A Reference Range <1:40 Negative 1:40-1:80 Low Antibody Level >1:80 Elevated Antibody Level MARIEL Pattern 3 A Cytoplasmic, Fine Speckled Abnormal Flag: A Scattered small speckles in the cytoplasm mostly with homogeneous or dense fine speckled background (e.g., anti-Margret-1). Pattern is associated with anti-synthetase syndrome, polymyositis/dermatom yositis, limited systemic sclerosis, and idiopathic pleural effusion. AC-20: Fine Speckled International Consensus on MARIEL Patterns (https://doi.org/10.1 515/zrtu-6854-9934) THIS TEST WAS PERFORMED AT: [facility] [address] [place] [phone] DIANN CHAIREZ MD Smooth Muscle Antibody Reviewed date:02/19/2025 09:54:29 PM Interpretation: Performing Lab:[facility], [address] [place] [phone] Notes/Report: Smooth Muscle Antibody <20 <20 U [...] type 1. THIS TEST WAS PERFORMED AT: [facility]/[address] LASHANDA JACOBO MD,PHD Prothrombin Time INR Reviewed date:02/19/2025 09:54:37 PM Interpretation: Performing Lab:[facility], [address] [place] [phone] Notes/Report: Prothrombin Time 11.1 10.9-12.4 SEC N INTERNATIONAL NORM RATIO 1.0 0.9-1.1 N INTERNATIONAL NORMALIZED RATIO (INR) REFERENCE RANGES Reference [...] mechanical prosthetic heart valves: 2.5 - 3.5 Reason For Referral No Information Medications Medication SIG (Take, Route, Frequency, Duration) Notes Start Date End Date Status Lisinopril 20 MG Tablet TAKE ONE TABLET BY MOUTH TWICE DAILY Oral; Duration: 90 Days Active Levothyroxine Sodium 25 MCG Tablet 1 tablet in the morning on an empty stomach Orally Once a day 02/08/2025 Active Omeprazole 40 MG Capsule Delayed Release TAKE ONE CAPSULE DAILY Oral; Duration: 90 Days Active Ezetimibe 10 MG Tablet TAKE ONE TABLET D AILY Oral; Duration: 90 Days Active Social History Tobacco Use: Social History Observation Description Date Details (start date - stop date) Never Smoker NA - NA Social History Drug/Alcohol: Social Info Question Answer Notes AUDIT-C (Standard) Did you have a drink containing alcohol in the past year? No Points 0 Interpretation Negative Tobacco Use: Social Info Question Answer Notes Tobacco Control (Standard) Tobacco use: Nonsmoker Additional Details Category Social Info Options Details Miscellaneous: Marital status: Occupation: retired Problems Problem Type SNOMED Code ICD Code Onset Dates Problem Status W/U Status Risk Notes Problem Elevated liver enzymes level (982929747) Elevated liver function tests (R79.89) Active confirmed Problem Gallstones (956235504) Gallstones (K80.20) Active confirmed Problem Raised antinuclear antibody (227368337) MARIEL positive (R76.8) Active confirmed Vital Signs Temperature 98.2 degrees Fahrenheit 02/08/2025 Blood pressure diastolic 01 mm Hg 02/08/2025 Height 63 in 02/08/2025 Blood pressure systolic 001 mm Hg 02/08/2025 Weight 137.8 lbs 02/08/2025 BMI 24.41 kg/m2 02/08/2025 Encounters Encounter Location Date Provider Diagnosis [facility] [address] [place] [phone] 02/08/2025 Waldemar Castañeda Elevated liver function tests R79.89 ; MARIEL positive R76.8 and Gallstones K80.20 [facility] [address] [place] [phone] 02/21/2025 Waldemar Castañeda Assessments Encounter Date Diagnosis [...] with you about a referral to a Bridge Repairer. We did have a detailed discussion today [...] with you about a referral to a Bridge Repairer. We did have a detailed discussion today [...] with you about a referral to a Bridge Repairer. We did have a detailed discussion today [...] Insured Coverage Start Date Coverage End Date [facility] [address] [address] [place] [address] [phone] [id number] MELISA MUÑOZ Self - patient is the insured MEDICAID OF [facility] [address] [place] [address] [phone] [id number] MELISA MUÑOZ Self - patient is the insured 7 Medical (General) History Medical History History ICD Code Hypothyroidism Hypertension Hyperlipidemia Reported CREST syndrome with Raynaud's + MARIEL Osteoporosis Asymptomatic gallstones reviewed at the 01/2025 OV Slight elevation of the liver enzymes Negative colonoscopy with Dr. Frazier in 4- -no adenomas Surgical History Surgery Date(Month/Year) septoplasty
--- OUTSIDE RECORDS SUMMARY | 2025-06-29 09:29 | XMS_ITS | Encounter Summary ---
Author Organization [facility] Address [address] [place] [address] Phone Care Team Providers Care Shearer Operator Name Role Phone Jade Reece MD Primary Care Provider [phone] Encounter Details Date Type Department Care Team (Late st Contact Info) Description 10/21/2021 Documentation Only [facility], [address] [place] [address] Betty Judge [address] [place] [address] Social History Tobacco Use Types [...] on filedocumented in this encounter Care Teams Shearer Operator Relationship Specialty Start Date End Date Jade Reece MD 1963 [facility] [place] [address] PCP - General Internal Medicine 10/21/21 documented as of this encounter
--- OUTSIDE RECORDS SUMMARY | 2025-06-29 09:29 | XMS_ITS | Clinical Summary ---
Author Organization [facility], Address [address] [place] [address] [place] [address] Phone Care Team Providers Care Automated Equipment Engineer Technician Name Role Phone Jade Reece MD Primary Care Provider [phone] Allergies No known active allergies Medications rosuvastatin [...] this topic Insurance UHC Medicare Care Teams Automated Equipment Engineer Technician Relationship Specialty Start Date End Date Jade Reece MD 1963 [facility] [place] [id number] PCP - General Internal Medicine 10/21/21
--- OUTSIDE RECORDS SUMMARY | 2025-06-29 09:29 | XMS_ITS | Clinical Summary ---
Author Organization [facility] [address] [facility] Address [address] [place], [place] Phone Care Team Providers Care Pharmacy Informatics Manager Name Role Phone Jade Reece MD Primary Care Provider [phone] Encounters Date Type Department Care Team Description 05/18/2025 Telephone [place]st[place]s [place] [facility] [address] [place] [address] Meghan Dawson CNM from Last 3 Months [...] is recommended in 1 year. Mammo Location: [facility], [address] [place] [address], [phone], . -------- FINAL REPORT -------- Dictated By: Maliha Toney Dictated Date: 10/21/2024 08:49 ET Assigned Physician: Maliha Toney Reviewed and Electronically Signed By: Maliha Toney Signed Date: 10/21/2024 08:51 ET Workstation ID: [id number] Transcribed By: Self Edit Transcribed Date: 10/21/2024 [...] is recommended in 1 year. Mammo Location: [facility], [address] [place] [address], [phone], . -------- FINAL REPORT -------- Dictated By: Maliha Toney Dictated Date: 10/21/2024 08:49 ET Assigned Physician: Maliha Toney Reviewed and Electronically Signed By: Maliha Toney Signed Date: 10/21/2024 08:51 ET Workstation ID: [id number] Transcribed By: Self Edit Transcribed Date: 10/21/2024 08:49 ET aJde Reece MD IMG BI PROCEDURES Final Resul t from Last 3 Months or Most Recently Relevant to Health Maintenance Insurance [place] - [place] [facility] [place] [id number] Care Teams Pharmacy Informatics Manager Relationship Specialty Start Date End Date Jade Reece MD PCP - General Internal Medicine 07/08/24
--- OUTSIDE RECORDS SUMMARY | 2025-06-29 09:29 | XMS_ITS | Encounter Summary ---
Author Organization [facility] Address [address] [place] [address] Phone Care Team Providers Care Flute Teacher Name Role Phone Jade Reece MD Primary Care Provider [phone] Encounter Details Date Type Department Care Team (Late st Contact Info) Description 12/31/2021 Documentation Only [facility], [address] [place] [address] Betty Judge [address] [place] [address] Social History Tobacco Use Types [...] on filedocumented in this encounter Care Teams Flute Teacher Relationship Specialty Start Date End Date Jade Reece MD 1963 [facility] [place] [place] [address] PCP - General Internal Medicine 10/21/21 documented as of this encounter
== END 2025-06-29 09:14 | disposition home or self-care (01) ==
LOC: HO.HGS 08:46
PROVIDERS: PCP Internal Medicine; Visit Provider Surgery
DX: N64.4 Mastodynia (principal)
CPT/HCPCS: 99203

== ENCOUNTER → 2025-06-29 08:45 | Outpatient (BNVA) | payer MEDICARE, MEDICAID, SELFPAY | PROVIDERS: PCP Internal Medicine; Visit Provider Surgery | DX: N64.4 Mastodynia (principal) | CPT/HCPCS: 99202 ==

== ENCOUNTER 2025-07-13 11:17 | Outpatient (REF) | payer MEDICARE, SELFPAY ==
--- NOTE | ~2025-07-13 | US_ITS ---
EXAMINATION: MM DIAGNOSTIC DIGITAL BREAST TOMOSYNTHESIS, BILATERAL Left Limited ultrasound. CLINICAL INFORMATION: Left breast pain. COMPARISON: Mammography: Comparison is made with relevant prior exams. TECHNIQUE: Digital breast mammography with tomosynthesis is performed in both the craniocaudal and mediolateral oblique views along with computer-aided detection (CAD). FINDINGS: There are scattered areas of fibroglandular density. Right: There are no significant masses, abnormal calcifications, or other abnormalities. Left: [place] marker at site of patient's pain in the upper outer breast and lower inner breast without underlying abnormal finding. No suspicious masses calcifications or other abnormal findings. Targeted color Doppler ultrasound scanning in the area of the patient's left breast pain 1-3 o'clock retroareolar region and 8-10 o'clock demonstrates normal follicular breast tissue. There is no sonographic abnormal finding. Results are provided to the patient at time of visit by the technologist. US/US Breast LT Limited Mamm Only IMPRESSION: Right: Negative. Left: No mammographic or sonographic abnormal finding to account for the patient's areas of pain. Recommend clinical evaluation and follow-up. ASSESSMENT: BI-RADS Category 1: Negative RECOMMENDATION: 1 year F/U This patient's information was entered into a reminder system with a target due date for their next mammogram. Electronically signed by: Shyla Orellana DO 07/13/2025 12:23 PM [facility]
--- OUTSIDE RECORDS SUMMARY | 2025-07-13 14:47 | XMS_ITS | Clinical Summary ---
Author Organization [facility], Address [address] [place] [address] [place] [address] Phone Care Team Providers Care Engineer Sergeant Name Role Phone Jade Reece MD Primary [...] this topic Insurance UHC Medicare Care Teams Engineer Sergeant Relationship Specialty Start Date End Date Jade Reece MD 1963 [facility] [place] [id number] PCP - General Internal Medicine 10/21/21
--- OUTSIDE RECORDS SUMMARY | 2025-07-13 14:47 | XMS_ITS | Clinical Summary ---
Author Organization [facility] Address [address] [place], [place] Phone Care Team Providers Care Steno Typist Name Role Phone Jade Reece MD Primary Care Provider [phone] Encounters Date Type Department Care Team Description 05/18/2025 Telephone Obstetrics and Gynecology [facility] [address] [place] [address] Meghan Dawson CNM from Last 3 Months Surgical History Surgery Date Site/Laterality Comments COLONOSCOPY 12/27/2007 PROCEDURE: MA COLONOSCOPY FLX DX W/COLLJ SPEC WHEN PFRMD; [...] is recommended in 1 year. Mammo Location: [facility], [address] [place] [address], [address], . -------- FINAL REPORT -------- Dictated By: Maliha Toney Dictated Date: 10/21/2024 08:49 ET Assigned Physician: Maliha Toney Reviewed and Electronically Signed By: Maliha Toney Signed Date: 10/21/2024 08:51 ET Workstation ID: [id number] Transcribed By: Self Edit Transcribed Date: 10/21/2024 [...] is recommended in 1 year. Mammo Location: [facility], [address] [place] [address], [address], . -------- FINAL REPORT -------- Dictated By: Maliha Toney Dictated Date: 10/21/2024 08:49 ET Assigned Physician: Maliha Toney Reviewed and Electronically Signed By: Maliha Toney Signed Date: 10/21/2024 08:51 ET Workstation ID: [id number] Transcribed By: Self Edit Transcribed Date: 10/21/2024 08:49 ET Jade Reece MD IMG BI PROCEDURES Final Resul t from Last 3 Months or Most Recently Relevant to Health Maintenance Insurance [place] [facility] [place] [id number] Care Teams Steno Typist Relationship Specialty Start Date End Date Jade Reece MD PCP - General Internal Medicine 07/08/24
--- OUTSIDE RECORDS SUMMARY | 2025-07-13 14:47 | XMS_ITS | Patient Health Record ---
Author Organization [facility] Address [address] [place] [address] Care Team Providers Care Chimney Repairer Name Role Phone Jade Reece MD Primary Care Provider Waldemar Perales [phone] Allergies Allergen (clinical drug ingredient) Drug/Non Drug Allergy documented on EMR Reaction Allergy Type Onset Date Status amlodipine amLODIPine Unknown Drug Allergy Activ e rosuvastatin Rosuvastatin Unknown Drug Allergy A ctive Results Component Value Reference Range Flag Notes Prothrombin Time INR Reviewed date:02/19/2025 09:54:37 PM Interpretation: Performing Lab:[address] [address] Notes/Report: Prothrombin Time 11.1 10.9-12.4 SEC N [...] Antibody Reviewed date:02/19/2025 09:54:29 PM Interpretation: Performing Lab:[facility], [address] [place] [id number] Notes/Report: Smooth Muscle Antibody <20 <20 U [...] type 1. THIS TEST WAS PERFORMED AT: [facility]_/[address] [address] LASHANDA JACOBO MD,PHD Immunoglobulin G Reviewed date:02/19/2025 10:00:16 PM Interpretation: Performing Lab:[facility], [address] [place] [phone] Notes/Report: Immunoglobulin G 8164 732-2013 mg/dL N THIS TEST WAS PERFORMED AT: [facility] [address] [address] DIANN CHAIREZ MD Complete Blood Count Auto Di ff Reviewed date:02/19/2025 10:00:45 PM Interpretation: Performing Lab:[facility], [address] [place] [address] Notes/Report: White Blood Count 6.6 4.8-10.8 X10*3/uL [...] te Reviewed date:02/19/2025 10:00:25 PM Interpretation: Performing Lab:[address] [address] Notes/Report: Erythrocyte Sedimentation Rate 18 0-20 MM/HR N Patients with polycythemia and many hemoglobin abnormalities may have depressed sed rates whereas patients with anemia may have elevated sed rates. Liver Panel Reviewed date:02/21/2025 07:46:14 PM Interpretation: Performing Lab:[address] [address] Notes/Report: Bilirubin Total 0.5 0.0-1.0 mg/dL N Bilirubin Direct 0.2 0.0-0.5 mg/dL N Aspartate Amino Transferase 73 5-31 U/L H Alanine Aminotransferase 91 0-31 U/L H Total Protein 8.0 6.5-8.0 g/dL N Albumin Level 4.6 3.5-5.0 g/dL N Alkaline Phosphatase 174 39-117 U/L H MARIEL Reflex Titer and Pattern Reviewed date:02/21/2025 08:13:41 PM Interpretation: Performing Lab:[address] [address] Notes/Report: Anti Nuclear Antibody Screen POSITIVE NEGATIVE A MARIEL IFA is a first line screen for detecting the presence of up to approximately 150 autoantibodies in various autoimmune diseases. A positive MARIEL IFA result is suggestive of autoimmune disease and reflexes to titer and pattern. Further laboratory testing may be considered if clinically indicated. For additional information, please refer to http://education.Ques tDiagnostics.P[place]thora/faq/ SMJ157 (This link is being provided for informational/ [...] [employer] International Consensus on MARIEL Patterns (https://doi.org/10.1 515/nwfu-1987-8617) MARIEL Titer 2 1:1280 A Reference Range <1:40 Negative 1:40-1:80 Low Antibody Level >1:80 Elevated Antibody Level MARIEL Pattern 2 Nuclear, Homogeneous A Homogeneous pattern is associated with systemic lupus erythematosus (SLE), drug-induced lupus and juvenile idiopathic arthritis. AC-1: Homogeneous International Consensus on MARIEL Patterns (https://doi.org/10.1 515/hojo-2166-8984) MARIEL Titer 3 1:320 A Reference Range [...] Speckled International Consensus on MARIEL Patterns (https://doi.org/10.1 515/dsap-5018-1364) THIS TEST WAS PERFORMED AT: [facility] [address] [place] [phone] DIANN CHAIREZ MD Reason For Referral No [...] Risk Notes Problem Elevated liver enzymes level (193229407) Elevated liver function tests (R79.89) Active confirmed Problem Gallstones (844902077) Gallstones (K80.20) Active confirmed Problem Raised antinuclear antibody (967981576) MARIEL positive (R76.8) Active confirmed Vital Signs Temperature 98.2 degrees Fahrenheit 02/08/2025 Blood pressure diastolic 01 mm Hg 02/08/2025 Height 63 in 02/08/2025 Blood pressure systolic 001 mm Hg 02/08/2025 Weight 137.8 lbs 02/08/2025 BMI 24.41 kg/m2 02/08/2025 Encounters Encounter Location Date Provider Diagnosis [facility] [address] [place] [id number] 02/08/2025 Waldemar Castañeda Elevated liver function tests R79.89 ; MARIEL positive R76.[address] [facility] [address] [place] [phone] 02/08/[address] Waldemar Castañeda [facility] [address] [place] [phone] 02/08/[address] Waldemar Castañeda [facility] [address] [place] [phone] 02/08/[address] Waldemar Castañeda [facility] [address] [place] [phone] 02/08/[address] Waldemar Castañeda [facility] [address] [place] [phone] 02/08/[address] Waldemar Castañeda [facility] [address] [place] [phone] 02/21/2025 Waldemar Castañeda Assessments Encounter Date Diagnosis [...] with you about a referral to a Log Truck Driver. We did have a detailed discussion today [...] with you about a referral to a Log Truck Driver. We did have a detailed discussion today [...] with you about a referral to a Log Truck Driver. We did have a detailed discussion today [...] Insured Coverage Start Date Coverage End Date [facility] [address] [address] [place] [address] [id number] MELISA MUÑOZ Self - patient is the insured MEDICAID OF [facility] [address] [place] [address] [id number] MELISA MUÑOZ Self - patient is the insured 7 Medical (General) History Medical History History ICD Code Hypothyroidism Hypertension Hyperlipidemia Reported CREST syndrome with Raynaud's + MARIEL Osteoporosis Asymptomatic gallstones reviewed at the 01/2025 OV Slight elevation of the liver enzymes Negative colonoscopy with Dr. Frazier in - -no adenomas Surgical History Surgery Date(Month/Year) septoplasty
--- OUTSIDE RECORDS SUMMARY | 2025-07-13 14:47 | XMS_ITS | Encounter Summary ---
Author Organization [facility] Address [address] [place] [address] Phone Care Team Providers Care Auditor/Quality Name Role Phone Jade Reece MD Primary Care Provider [phone] Encounter Details Date Type Department Care Team (Late st Contact Info) Description 12/31/2021 Documentation Only [facility], [address] [place] [address] Betty Judge [address] [place] [address] Social History Tobacco Use Types [...] on filedocumented in this encounter Care Teams Auditor/Quality Relationship Specialty Start Date End Date Jade Reece MD 1963 [facility] [place] [facility] [place] [address] PCP - General Internal Medicine 10/21/21 documented as of this encounter
--- OUTSIDE RECORDS SUMMARY | 2025-07-13 14:47 | XMS_ITS | Encounter Summary ---
Author Organization [facility] Address [address] [place] [address] Phone Care Team Providers Care Landing Worker Name Role Phone Jade Reece MD Primary Care Provider [phone] Encounter Details Date Type Department Care Team (Late st Contact Info) Description 10/21/2021 Documentation Only [facility], [address] [place] [address] Betty Judge [address] [place] [address] Social History Tobacco Use Types [...] on filedocumented in this encounter Care Teams Landing Worker Relationship Specialty Start Date End Date Jade Reece MD 1963 [facility] [place] [facility] [place] [address] PCP - General Internal Medicine 10/21/21 documented as of this encounter
== END 2025-07-13 11:18 | disposition home or self-care (01) ==
LOC: HO.MAMMO 11:17
PROVIDERS: PCP Internal Medicine; Visit Provider Internal Medicine
DX: N64.4 Mastodynia (principal)
CPT/HCPCS: 76642; 77062; 77066

== ENCOUNTER → 2025-07-13 11:30 | Outpatient (BNV) | payer MEDICARE, SELFPAY | PROVIDERS: PCP Internal Medicine; Visit Provider Internal Medicine | DX: N64.4 Mastodynia (principal) | CPT/HCPCS: 76642; 77066; G0279 ==